=== PATIENT | male | born 1975 | race Caucasian/White ===

== ENCOUNTER → 2020-09-10 12:59 | Outpatient (BNVA) | payer OTHER, SELFPAY | PROVIDERS: PCP Internal Medicine; Visit Provider Internal Medicine | DX: R55 Syncope and collapse (principal); R56.9 Unspecified convulsions | CPT/HCPCS: 99204 ==

== ENCOUNTER 2020-12-04 14:34 | Outpatient (REF) | payer OTHER, SELFPAY | END 2020-12-04 14:35 | disposition home or self-care (01) | LOC: HO.LAB 14:34 | PROVIDERS: Visit Provider Internal Medicine | DX: Z20.822 Contact with and (suspected) exposure to COVID-19 (principal) | CPT/HCPCS: 36415; C9803; U0003 ==

== ENCOUNTER 2021-01-07 08:04 | Inpatient (IN) | payer OTHER, SELFPAY ==
[2021-01-07] VITALS (7 sets, daily range): BP systolic 108–129; BP diastolic 61–87; PULSE 75–101; RESP 16–18; TEMP 36.8–37.1; O2SAT 94–99; BMI 24.3
--- NOTE | ~2021-01-07 | CT_ITS ---
EXAMINATION: CT CERVICAL SPINE WITHOUT CONTRAST CLINICAL INFORMATION: Fall, trauma, pain COMPARISON: CT cervical spine 12/20/2019 TECHNIQUE: Multidetector volumetric CT imaging of the cervical spine is performed without contrast in the axial plane. Additional 2D reformatted coronal and sagittal images are generated on the CT workstation and uploaded to PACS. This CT examination was performed using dose optimization techniques as appropriate, variously including the following: *Automated exposure control *Adjustment of mA and/or kV according to patient size (this includes techniques or standardized protocols for targeted exams where dose is matched to indication/reason for exam; i.e. extremities or head) *Use of iterative reconstruction technique DLP: 399 mGy-cm FINDINGS: There is no vertebral compression fracture, fracture line, spondylolisthesis, or prevertebral soft tissue swelling. The craniocervical junction appears normal. The odontoid appears intact. There is normal cervical lordosis. There are no significant degenerative changes. There is no apical pneumothorax. CT/CT cervical spine wo con IMPRESSION: No acute bony abnormality or prevertebral soft tissue swelling.
--- NOTE | ~2021-01-07 | CT_ITS ---
EXAMINATION: CT HEAD WITHOUT CONTRAST CLINICAL INFORMATION: Fall, trauma, pain. Prior history ruptured anterior communicating artery status post clipping. COMPARISON: CT brain 05/15/2020 TECHNIQUE: Contiguous axial imaging was performed from the skull base to vertex without intravenous administration of contrast. Additional 2-D coronal and sagittal reformatted images are generated on the CT workstation and uploaded to PACS. This CT examination was performed using dose optimization techniques as appropriate, variously including the following: *Automated exposure control *Adjustment of mA and/or kV according to patient size (this includes techniques or standardized protocols for targeted exams where dose is matched to indication/reason for exam; i.e. extremities or head) *Use of iterative reconstruction technique DLP: 744 mGy-cm FINDINGS: There are postsurgical changes with right anterior craniotomy and aneurysm clipping. 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 There is no intracranial hemorrhage or hematoma. The ventricles are normal in size. No intraventricular hemorrhage. There is no hydrocephalus, edema, or mass effect. The marie-white matter differentiation appears symmetric. There is no visible acute territorial infarct or mass lesion. No acute bony abnormality. No orbital emphysema or pneumocephalus. No air-fluid levels in the middle ears, mastoids, or sinuses. CT/CT head/brain wo con IMPRESSION: 1. No acute intracranial abnormality. 2. Postsurgical changes. 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
--- NOTE | ~2021-01-07 | XR_ITS ---
EXAMINATION: XR CHEST CLINICAL INFORMATION: Fall, COMPARISON: Chest radiographs 06/05/2019, 04/29/2017 TECHNIQUE: Portable upright AP view of the chest was obtained. FINDINGS: There is mild coarsening bronchiolar markings lower zones similar to prior studies. No interval hyperinflation, airspace consolidation, or groundglass opacity. No pneumothorax or pleural reaction or effusion. The costophrenic sulci are clear. The heart is normal in size. The vascularity is normal. The visualized bony structures are unremarkable. XR/XR chest 1V IMPRESSION: Unremarkable examination.
--- NOTE | 2021-01-07 08:23 | ECG_ITS ---
Test Reason : SEIZURE Blood Pressure : / mmHG Vent. Rate : 104 BPM Atrial Rate : 104 BPM P-R Int : 134 ms QRS Dur : 084 ms QT Int : 332 ms P-R-T Axes : 065 047 053 degrees QTc Int : 436 ms Sinus tachycardia Otherwise normal ECG When compared with ECG of 20-DEC-2019 11:22, No significant change was found Referred By: Stephanie Calderon Electronically Signed By:CLINTON BREWSTER
--- NOTE | 2021-01-07 08:25 | ED.FALL ---
HPI - Fall General Chief Complaint: Seizure Stated Complaint: DIZZINESS,FOUND ON FLOOR BY FAMILY ? SEIZURE Time Seen by Provider: 01/07/21 08:12 Source: patient and EMS Mode of arrival: EMS Limitations: no limitations History of Present Illness HPI Narrative: 45 yo male with past medical history of cerebral aneurysm s/p clipping in 2007 with subsequent infrequent seizures (5 seizures since) last 08/2020 (seen at [facility] [place] ED and left AMA). Patient tells me he followed up with neurology but unclear whom and where and he was not started on antiepileptics and has not been on any antiepileptics before. He has a history of drinking alcohol (6-7 beers per day) with last drink 48 hrs ago. No additional substance use. He tells me when he does not drink he does get tremulous. He tells me he woke up this morning next to his couch and his friend was over him waking him up. He tells me his friend was there to pick him up for work. He tells me he normally sleeps on his couch and he woke up next to it. He was incontinent with waking. He bit his tongue. He tells me he believe he had a seizure as he has a SHANKAR, feels generally weak, has nausea and feels unwell. Per patient this is how he typically feels post seizure. He has no additional physical complaints. Related Data Home Medications Medication Instructions Recorded Confirmed omeprazole 20 mg PO DAILY PRN 01/07/21 01/07/21 Allergies Allergy/AdvReac Type Severity Reaction Status Date / Time No Known Allergies Allergy Unverified 07/25/20 15:51 [No Known Allergies*] Review of Systems Review of Systems: Yes all other systems are reviewed and are negative Constitutional: Constitutional: Reports no additional constitutional complaints, Denies body ache(s), Denies chills, Denies fever(s), Reports headache(s) and Reports weakness Eyes: Eyes: Reports no additional eye complaints and Denies change in vision ENT: Reports system reviewed and no additional complaints, except as documented, Denies dizziness, Reports headache(s), Denies nasal congestion, Denies nasal discharge and Denies neck pain Cardiovascular: Cardiovascular: Reports no additional cardiovascular complaints, Denies chest pain, Denies leg edema and Denies dyspnea Respiratory: Respiratory: Reports no additional respiratory complaints, Denies cough and Denies dyspnea Gastrointestinal: Gastrointestinal: Reports no additional gastrointestinal complaints, Denies abdominal pain, Denies diarrhea, Reports nausea and Denies vomiting Genitourinary: Genitourinary: Denies urinary incontinence Musculoskeletal: Musculoskeletal: Reports no additional musculoskeletal complaints, Denies back pain, Denies arthralgias, Denies joint swelling, Denies neck pain, Denies numbness and Denies tingling Integumentary/Breasts: Skin/Breast: Reports system reviewed and no additional complaints, except as docu and Denies rash Neurologic: Reports system reviewed and no additional complaints, except as documented, Denies Abnormal speech present, Denies dizziness, Reports headache(s), Denies numbness, Denies tingling and Reports weakness PMFSH Past Medical History Attestation statement: The following information was validated with the patient. Source: old records reviewed and nursing notes reviewed Medical History Seizures Surgical History Aneurysm of anterior communicating artery Family History Family History Father Diabetes Mother No problems noted. Sister No problems noted. Sister No problems noted. Social History Social History Alcohol intake: current Alcohol intake frequency: 3 or more drinks per day Smoking Status: Current some day smoker Use of substances other than those prescribed or required for medical reasons: Yes Substance Use Type Other:: marijuana Substance Use Frequency: Occasionally Last Used Substance: Unknown Any prior treatment program specific to substance use: No Advance Directives: Yes Advance Directives Information Provided: No Advance Directives on File: No Physical Exam Vital Signs: Vital Signs: Last Vital Signs Temp 98.2 F 01/07/21 08:25 Pulse 100 01/07/21 12:46 Resp 16 01/07/21 12:46 BP 129/76 01/07/21 12:46 Pulse Ox 96 01/07/21 12:46 Body Mass Index 24.3 Const: General: cooperative, healthy appearing, comfortable and no acute distress Orientation/consciousness: patient oriented x3 Limitations: no limitations HENMT: Head: Yes normal to inspection Ears: hearing grossly normal bilaterally General nose exam: Normal external nose present Face and sinus: Yes normal facial exam Mouth: Normal oral and palatal mucosa present Throat: Yes posterior oropharynx normal Eyes: General: appearance normal, both eyes and all related structures Pupils: Equal, round and reactive pupils present Neck: Neck: Yes normal visual inspection Chest: Chest palpation & inspection: normal inspection of the chest Resp: Effort & Inspection: normal respiratory effort Auscultation: clear to auscultation bilaterally Cardio: Rate: regular rate Rhythm: regular rhythm Peripheral pulses: Peripheral pulses 2+ throughout GI: Inspection: Yes normal to inspection Palpation (GI): Soft to palpation and nontender Auscultation: normal bowel sounds Back/Spine/Pelvis: Thoracic/Lumbar Spine: thoracic and lumbar spine normal to inspection Skin: General skin exam: no rashes or lesions noted Neuro: General: patient oriented x3, no focal motor deficits and normal sensation to monofilament Cranial nerves: Yes CN's II-XII intact bilaterally, Yes Equal, round and reactive pupils present, Yes Bilaterally intact EOM present, Yes Nystagmus not present, Yes Normal facial strength present and Yes Midline tongue present Cognition (Neuro): normal cognition Speech: No Abnormal speech present Gait exam (Neuro): Normal gait present Motor exam (neuro): 5/5 motor strength present throughout Sensory Exam: Normal double simultaneous stimulation for sensation Deep tendon reflexes (DTR's): Right patellar reflex intensity grade: 2+ and Left patellar reflex intensity grade: 2+ Extrem: Other: Mild tremors to bilateral hands noted General: Yes normal to inspection Course Course Course Narrative: 45 yo male with past medical history of cerebral aneurysm s/p clipping in 2007 with subsequent infrequent seizures, alcohol use here with reports of being found down by a friend. Patient tells me he believed he had a seizure as he was incontinent, feels generally weak, has a SHANKAR and has nausea. he is not currently on antiepileptics. ?alcohol related as patient has a mild tremor with tachycardia and hypertension. Last drink 48 hrs prior. Or underlying seizure disorder with patient's past medical history of aneurysm with clip. Patient is unable to tell me many details about his medical history. Will place on seizures precautions, obtain CT head/neck, EKG, CXR, labs, BRYAN, COVID screen, phenorbarb protocal. 0930-Lactic acid elevated likely from seizures and not from infection, gentle hydration ordered. Low mg, replacement ordered. 1130-Imaging unremarkable. Will discuss with medicine for admit. 1245-Discussed with Marge NEO who accepted admission. MDM - Fall Medical Records Attestation: I reviewed the patient's medical records. Lab Data Attestation: I reviewed the patient's lab results. Result diagrams: 01/07/21 08:39 01/07/21 08:39 Labs: Lab Results 01/07/21 01/07/21 01/07/21 Range/Units 08:39 08:39 08:39 WBC 12.1 H (4.8-10.8) X10*3/uL RBC 4.49 L (4.60-5.80) X10*6/uL Hgb 15.2 (14.0-18.0) g/dl Hct 44.5 (42-52) % MCV 99.1 H (80-98) fL MCH 33.9 H (27.0-33.0) pg MCHC 34.2 (31.0-36.0) g/dl RDW 13.9 (11.0-16.0) % Plt Count 302 (160-400) X10*3/uL MPV 9.1 L (9.4-12.4) fL Immature Gran % (Auto) 0.3 (0.0-0.4) % Neut % (Auto) 88.8 H (45-73) % Lymph % (Auto) 6.7 L (20-40) % [place] % (Auto) 3.4 (2-11) % Eos % (Auto) 0.4 (0-4) % Baso % (Auto) 0.4 (0-2) % Lymph # (Auto) 0.8 L (1.2-4.9) X10*3/uL [place] # (Auto) 0.4 (0.1-1.2) X10*3/uL Eos # (Auto) 0.1 (0.0-0.4) X10*3/uL Baso # (Auto) 0.1 (0.0-0.2) X10*3/uL Abs Immat Gran (auto) 0.04 H (0.00-0.03) X10*3/uL Absolute Neuts (auto) 10.7 H (2.0-8.3) X10*3/uL Absolute Nucleated RBC 0.000 (0.0-0.012) X10*3/uL Nucleated RBC % (auto) 0.0 (0.0-0.2) /100WBC PT 12.6 (10.8-13.0) SEC INR 1.1 (0.9-1.1) Sodium 139 (135-145) mmol/L Potassium 4.4 (3.3-5.1) mmol/L Chloride 98 (96-108) mmol/L Carbon Dioxide 24 (22-29) mmol/L Anion Gap 21 H (12-20) BUN 8 L (9-16) mg/dL Creatinine 1.10 (0.5-1.4) mg/dL Estim Creat Clear Calc 101.3 Estimated GFR > 60 Random Glucose 156 H (60-115) mg/dL Lactic Acid (0.5-2.0) mmol/L Lactic Acid Fup @ 2Hr (0.5-2.0) mmol/L Calcium 9.8 (8.4-10.2) mg/dL Magnesium 1.3 L* (1.6-2.6) mg/dL Total Bilirubin 0.6 (0.0-1.0) mg/dL Direct Bilirubin 0.3 (0.0-0.5) mg/dL AST 62 H (5-37) U/L ALT 34 (0-40) U/L Alkaline Phosphatase 129 H (39-117) U/L Total Creatine Kinase (38-174) U/L Total Protein 8.3 H (6.5-8.0) g/dL Albumin 4.3 (3.5-5.0) g/dL Ethyl Alcohol mg/dL COVID-19 ([facility]) (Negative) COVID-19 Clin Com 01/07/21 01/07/21 01/07/21 Range/Units 08:39 08:39 08:39 WBC (4.8-10.8) X10*3/uL RBC (4.60-5.80) X10*6/uL Hgb (14.0-18.0) g/dl Hct (42-52) % MCV (80-98) fL MCH (27.0-33.0) pg MCHC (31.0-36.0) g/dl RDW (11.0-16.0) % Plt Count (160-400) X10*3/uL MPV (9.4-12.4) fL Immature Gran % (Auto) (0.0-0.4) % Neut % (Auto) (45-73) % Lymph % (Auto) (20-40) % [place] % (Auto) (2-11) % Eos % (Auto) (0-4) % Baso % (Auto) (0-2) % Lymph # (Auto) (1.2-4.9) X10*3/uL [place] # (Auto) (0.1-1.2) X10*3/uL Eos # (Auto) (0.0-0.4) X10*3/uL Baso # (Auto) (0.0-0.2) X10*3/uL Abs Immat Gran (auto) (0.00-0.03) X10*3/uL Absolute Neuts (auto) (2.0-8.3) X10*3/uL Absolute Nucleated RBC (0.0-0.012) X10*3/uL Nucleated RBC % (auto) (0.0-0.2) /100WBC PT (10.8-13.0) SEC INR (0.9-1.1) Sodium (135-145) mmol/L Potassium (3.3-5.1) mmol/L Chloride (96-108) mmol/L Carbon Dioxide (22-29) mmol/L Anion Gap (12-20) BUN (9-16) mg/dL Creatinine (0.5-1.4) mg/dL Estim Creat Clear Calc Estimated GFR Random Glucose (60-115) mg/dL Lactic Acid 4.8 H* (0.5-2.0) mmol/L Lactic Acid Fup @ 2Hr (0.5-2.0) mmol/L Calcium (8.4-10.2) mg/dL Magnesium (1.6-2.6) mg/dL Total Bilirubin (0.0-1.0) mg/dL Direct Bilirubin (0.0-0.5) mg/dL AST (5-37) U/L ALT (0-40) U/L Alkaline Phosphatase (39-117) U/L Total Creatine Kinase 230 H (38-174) U/L Total Protein (6.5-8.0) g/dL Albumin (3.5-5.0) g/dL Ethyl Alcohol < 10 mg/dL COVID-19 ([facility]) (Negative) COVID-19 Clin Com 01/07/21 01/07/21 Range/Units 11:38 13:07 WBC (4.8-10.8) X10*3/uL RBC (4.60-5.80) X10*6/uL Hgb (14.0-18.0) g/dl Hct (42-52) % MCV (80-98) fL MCH (27.0-33.0) pg MCHC (31.0-36.0) g/dl RDW (11.0-16.0) % Plt Count (160-400) X10*3/uL MPV (9.4-12.4) fL Immature Gran % (Auto) (0.0-0.4) % Neut % (Auto) (45-73) % Lymph % (Auto) (20-40) % [place] % (Auto) (2-11) % Eos % (Auto) (0-4) % Baso % (Auto) (0-2) % Lymph # (Auto) (1.2-4.9) X10*3/uL [place] # (Auto) (0.1-1.2) X10*3/uL Eos # (Auto) (0.0-0.4) X10*3/uL Baso # (Auto) (0.0-0.2) X10*3/uL Abs Immat Gran (auto) (0.00-0.03) X10*3/uL Absolute Neuts (auto) (2.0-8.3) X10*3/uL Absolute Nucleated RBC (0.0-0.012) X10*3/uL Nucleated RBC % (auto) (0.0-0.2) /100WBC PT (10.8-13.0) SEC INR (0.9-1.1) Sodium (135-145) mmol/L Potassium (3.3-5.1) mmol/L Chloride (96-108) mmol/L Carbon Dioxide (22-29) mmol/L Anion Gap (12-20) BUN (9-16) mg/dL Creatinine (0.5-1.4) mg/dL Estim Creat Clear Calc Estimated GFR Random Glucose (60-115) mg/dL Lactic Acid (0.5-2.0) mmol/L Lactic Acid Fup @ 2Hr 0.8 (0.5-2.0) mmol/L Calcium (8.4-10.2) mg/dL Magnesium (1.6-2.6) mg/dL Total Bilirubin (0.0-1.0) mg/dL Direct Bilirubin (0.0-0.5) mg/dL AST (5-37) U/L ALT (0-40) U/L Alkaline Phosphatase (39-117) U/L Total Creatine Kinase (38-174) U/L Total Protein (6.5-8.0) g/dL Albumin (3.5-5.0) g/dL Ethyl Alcohol mg/dL COVID-19 ([facility]) Negative (Negative) COVID-19 Clin Com See Note Imaging Data Ct cervical spine: Attestation: I personally reviewed and interpreted this imaging study as follows: Radiologist's impression: COMPARISON: CT cervical spine 12/20/2019 TECHNIQUE: Multidetector volumetric CT imaging of the cervical spine is performed without contrast in the axial plane. Additional 2D reformatted coronal and sagittal images are generated on the CT workstation and uploaded to PACS. This CT examination was performed using dose optimization techniques as appropriate, variously including the following: *Automated exposure control *Adjustment of mA and/or kV according to patient size (this includes techniques or standardized protocols for targeted exams where dose is matched to indication/reason for exam; i.e. extremities or head) *Use of iterative reconstruction technique DLP: 399 mGy-cm FINDINGS: There is no vertebral compression fracture, fracture line, spondylolisthesis, or prevertebral soft tissue swelling. The craniocervical junction appears normal. The odontoid appears intact. There is normal cervical lordosis. There are no significant degenerative changes. There is no apical pneumothorax. CT/CT cervical spine wo con IMPRESSION: No acute bony abnormality or prevertebral soft tissue swelling. CT scan - head: Attestation: I personally reviewed and interpreted this imaging study as follows: Radiologist's impression: EXAMINATION: CT HEAD WITHOUT CONTRAST CLINICAL INFORMATION: Fall, trauma, pain. Prior history ruptured anterior communicating artery status post clipping. COMPARISON: CT brain 05/15/2020 TECHNIQUE: Contiguous axial imaging was performed from the skull base to vertex without intravenous administration of contrast. Additional 2-D coronal and sagittal reformatted images are generated on the CT workstation and uploaded to PACS. This CT examination was performed using dose optimization techniques as appropriate, variously including the following: *Automated exposure control *Adjustment of mA and/or kV according to patient size (this includes techniques or standardized protocols for targeted exams where dose is matched to indication/reason for exam; i.e. extremities or head) *Use of iterative reconstruction technique DLP: 744 mGy-cm FINDINGS: There are postsurgical changes with right anterior craniotomy and aneurysm clipping. 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 There is no intracranial hemorrhage or hematoma. The ventricles are normal in size. No intraventricular hemorrhage. There is no hydrocephalus, edema, or mass effect. The marie-white matter differentiation appears symmetric. There is no visible acute territorial infarct or mass lesion. No acute bony abnormality. No orbital emphysema or pneumocephalus. No air-fluid levels in the middle ears, mastoids, or sinuses. CT/CT head/brain wo con IMPRESSION: 1. No acute intracranial abnormality. 2. Postsurgical changes. 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 Chest x-ray: Attestation: I personally reviewed and interpreted this imaging study as follows: Radiologist's impression: EXAMINATION: XR CHEST CLINICAL INFORMATION: Fall, COMPARISON: Chest radiographs 06/05/2019, 04/29/2017 TECHNIQUE: Portable upright AP view of the chest was obtained. FINDINGS: There is mild coarsening bronchiolar markings lower zones similar to prior studies. No interval hyperinflation, airspace consolidation, or groundglass opacity. No pneumothorax or pleural reaction or effusion. The costophrenic sulci are clear. The heart is normal in size. The vascularity is normal. The visualized bony structures are unremarkable. XR/XR chest 1V IMPRESSION: Unremarkable examination. ECG Data Attestation: I personally reviewed and interpreted this ECG as follows: Interpretation: ST with rate 104, normal pr, normal qrs, normal qtc Discharge Plan Discharge Clinical Impression: Seizure, Alcohol use Patient Disposition: Admitted As Inpatient
[2021-01-07 08:47] LABS: Basophils Absolute Auto 0.1 X10*3/uL (0.0-0.2); Basophils Percent Auto 0.4 % (0-2); Eosinophils Absolute Auto 0.1 X10*3/uL (0.0-0.4); Eosinophils Percent Auto 0.4 % (0-4); Hematocrit 44.5 % (42-52); Hemoglobin 15.2 g/dl (14.0-18.0); Imm Gran Abs Auto 0.04 X10*3/uL (0.00-0.03); Imm Gran Pct Auto 0.3 % (0.0-0.4); Lymphocytes Absolute Auto 0.8 X10*3/uL (1.2-4.9); Lymphocytes Percent Auto 6.7 % (20-40); MANUAL DIFF FLAG NO; Mean Corpuscular HGB Conc 34.2 g/dl (31.0-36.0); Mean Corpuscular Hemoglobin 33.9 pg (27.0-33.0); Mean Corpuscular Volume 99.1 fL (80-98); Mean Platelet Volume 9.1 fL (9.4-12.4); Monocytes Absolute Auto 0.4 X10*3/uL (0.1-1.2); Monocytes Percent Auto 3.4 % (2-11); Neutrophils Absolute Auto 10.7 X10*3/uL (2.0-8.3); Neutrophils Percent Auto 88.8 % (45-73); Platelet Count 302 X10*3/uL (160-400); Red Blood Count 4.49 X10*6/uL (4.60-5.80); Red Cell Distribution Width 13.9 % (11.0-16.0); White Blood Count 12.1 X10*3/uL (4.8-10.8)
[2021-01-07 08:57] LABS: INTERNATIONAL NORM RATIO 1.1 (0.9-1.1); Prothrombin Time 12.6 SEC (10.8-13.0)
[2021-01-07 09:08] LABS: Ethanol < 10 mg/dL
[2021-01-07 09:18] LABS: Alanine Aminotransferase 34 U/L (0-40); Albumin Level 4.3 g/dL (3.5-5.0); Alkaline Phosphatase 129 U/L (39-117); Anion Gap 21 (12-20); Aspartate Amino Transferase 62 U/L (5-37); Bilirubin Direct 0.3 mg/dL (0.0-0.5); Bilirubin Total 0.6 mg/dL (0.0-1.0); Blood Urea Nitrogen 8 mg/dL (9-16); Calcium 9.8 mg/dL (8.4-10.2); Carbon Dioxide 24 mmol/L (22-29); Chloride 98 mmol/L (96-108); Creatinine Clr Calc Pharmacy 101.3; Estimated Glomerular Filt Rate > 60; Glucose Random 156 mg/dL (60-115); Magnesium 1.3 mg/dL (1.6-2.6); Potassium 4.4 mmol/L (3.3-5.1); Sodium 139 mmol/L (135-145); Total Protein 8.3 g/dL (6.5-8.0)
[2021-01-07 09:19] LABS: Lactic Acid 4.8 mmol/L (0.5-2.0)
[2021-01-07] MEDS: 0.9 % Sodium Chloride 1,000 ML 999 ML IV (10:00)
[2021-01-07] MEDS: Magnesium Sulfate/H2O 2 GM/50 ML PIGGYBACK IV (10:00)
[2021-01-07] MEDS: Nicotine 21 MG PATCH.TD24 TRANSDERMA (10:06)
[2021-01-07 10:44] LABS: Reflex Lactate? Lactic Acid Added
[2021-01-07 12:10] LABS: ~Lactic Acid-LAB USE ONLY 0.8 mmol/L (0.5-2.0)
[2021-01-07] MEDS: PHENobarbitaL sodium 130 MG/ML VIAL 203 MG IM (12:34)
--- NOTE | 2021-01-07 12:53 | PC.NURSE ---
pt informed that we are waiting for urine sample and to ring call sims for urine sample cup
[2021-01-07] MEDS: ondansetron HCL 4 MG/2 ML VIAL IVPUSH (13:16)
[2021-01-07 13:51] LABS: COVID-19 Test Negative (Negative); IDNOW Serial# 9DD0AD1C
--- NOTE | 2021-01-07 15:22 | PM.IMHP ---
History of Present Illness Date of Service: 01/07/21 <Marge Lucas NP - Last Filed: 01/08/21 11:21> Chief Complaint: Seizure <Marge Lucas NP - Last Filed: 01/08/21 11:21> 45 year old man presenting after a seizure. Apparently, he woke up next to his couch and his friend was attempting to wake him up. Apparently he was incontinent of bowel and bladder when he stood up. He bit his tongue. He had a headache and felt generally weak with some nausea. He has a history of cerebral aneurysm clipping in 2007. He has had 3-4 seizures in the past after having aneurysmal clipping. He also drink alcohol heavily and had his last drink on Wednesday or Wednesday. He noted that he was in the rehab from 11/2020-12/2020. He denied chest pain, shortness of breath, nausea, vomiting. Vital signs are stable, mild leukocytosis, INR 1.1, magnesium 1.3, lactic acid 4.8 with repeat of 0.8. Head CT, chest x-ray and cervical spine CT all negative for any acute abnormalities. He was started on phenobarbital protocol, given IV magnesium, IV fluids, nicotine patch, Zofran. He be admitted for further management and treatment of acute seizure. <Marge Lucas NP - Last Filed: 01/08/21 11:21> Review of Systems Review of Systems: Denies any recent fever chills or decrease in appetite respiratory denies any shortness of breath coverage production cardiovascular is adjustment of any PND or edema gastrointestinal denies any dysphagia abdominal pain nausea vomiting or diarrhea genitourinary denies any dysuria frequency or hematuria musculoskeletal denies any joint pain or swelling neuropsych denies any weakness or seizures all other systems reviewed are negative <Marge Lucas NP - Last Filed: 01/08/21 11:21> [facility] Medical History: Medical History Seizures <Marge Lucas NP - Last Filed: 01/08/21 11:21> Family History: Family History Father Diabetes Mother No problems noted. Sister No problems noted. Sister No problems noted. <Marge Lucas NP - Last Filed: 01/08/21 11:21> Surgical History: Surgical History Aneurysm of anterior communicating artery <Marge Lucas NP - Last Filed: 01/08/21 11:21> Social History: Social History Household Members: None Housing: House Do you presently have visiting nurse or other home services: No Alcohol intake: current Alcohol intake frequency: 3 or more drinks per day Smoking Status: Current some day smoker Tobacco Type: Cigarette Smoked in Last 30 Days: Yes Patient Interested in Nicotine Replacement: No Patient Given Instructions on How to Stop Smoking: No Second Hand Smoke Exposure: No Use of substances other than those prescribed or required for medical reasons: No Substance Use Type: Marijuana Substance Use Type Other:: marijuana Substance Use Frequency: Socially Last Used Substance: Unknown Currently Displaying Signs/Symptoms of Drug Intoxication Withdrawal: No Any prior treatment program specific to substance use: No Have you been hit, kicked, punched, or otherwise hurt by someone within the past year? If so, by whom?: No Do you feel safe in your current relationship?: No Is there a partner from a previous relationship who is making you feel unsafe now?: No Are you made to feel afraid or neglected: No Holiness Healthcare Practices: Faith Advance Directives: No Advance Directives Information Provided: No Advance Directives on File: No Do you have thoughts of harming others: None Do you have a plan to hurt others: No Plan Recently lost weight without trying: No service: No Current occupational status: employed <Marge Lucas NP - Last Filed: 01/08/21 11:21> Meds Allergies/Adverse reactions: Allergies Allergy/AdvReac Type Severity Reaction Status Date / Time No Known Allergies Allergy Unverified 07/25/20 15:51 [No Known Allergies*] <Marge Lucas NP - Last Filed: 01/08/21 11:21> Active Medications: Current Medications Generic Name Dose Route Start Last Admin Trade Name Freq PRN Reason Stop Dose Admin Medication 1 each 01/08/21 09:00 No Benzodiazepines MISCELLANE DAILY [facility] Pharmacy Consult 1 each 01/07/21 11:44 Consult Rx Perform Med Rec MISCELLANE ONCE PRN Consult order Phenobarbital 60 mg 01/08/21 09:00 Phenobarbital 30 Mg Tablet PO 01/09/21 21:01 BID [facility] Phenobarbital 30 mg 01/10/21 09:00 Phenobarbital 30 Mg Tablet PO 01/11/21 21:01 BID [facility] Phenobarbital 30 mg 01/12/21 09:00 Phenobarbital 30 Mg Tablet PO 01/13/21 09:01 DAILY [facility] Phenobarbital Sodium 152 mg 01/07/21 16:00 Phenobarbital Sodium 130 Mg/Ml Vial IM 01/07/21 19:01 1600,1900 MARY JANE <Marge Lucas NP - Last Filed: 01/08/21 11:21> Home medications: Home Medications Medication Instructions Recorded Confirmed Last Taken Type omeprazole 20 mg PO DAILY PRN 01/07/21 01/07/21 Unknown History <Marge Lucas NP - Last Filed: 01/08/21 11:21> Physical Exam Vital Signs and Narrative: Vital Signs: Last Vital Signs Temp 98.2 F 01/07/21 08:25 Pulse 100 01/07/21 12:46 Resp 16 01/07/21 12:46 BP 129/76 01/07/21 12:46 Pulse Ox 96 01/07/21 12:46 Body Mass Index 24.3 <Marge Lucas NP - Last Filed: 01/08/21 11:21> Results Labs CBC and Chem 7: : 01/08/21 04:38 01/08/21 04:38 <Marge Lucas NP - Last Filed: 01/08/21 11:21> Labs: Laboratory Results - last 24 hr 01/07/21 01/07/21 01/07/21 08:39 08:39 08:39 MCV 99.1 H MCH 33.9 H MCHC 34.2 RDW 13.9 Plt Count 302 MPV 9.1 L Immature Gran % (Auto) 0.3 Neut % (Auto) 88.8 H Lymph % (Auto) 6.7 L [place] % (Auto) 3.4 Eos % (Auto) 0.4 Baso % (Auto) 0.4 Lymph # (Auto) 0.8 L [place] # (Auto) 0.4 Eos # (Auto) 0.1 Baso # (Auto) 0.1 Abs Immat Gran (auto) 0.04 H Absolute Neuts (auto) 10.7 H Absolute Nucleated RBC 0.000 Nucleated RBC % (auto) 0.0 PT 12.6 INR 1.1 Anion Gap 21 H Estim Creat Clear Calc 101.3 Estimated GFR > 60 Random Glucose 156 H Lactic Acid Lactic Acid Fup @ 2Hr Calcium 9.8 Magnesium 1.3 L* Total Bilirubin 0.6 Direct Bilirubin 0.3 AST 62 H ALT 34 Alkaline Phosphatase 129 H Total Creatine Kinase Total Protein 8.3 H Albumin 4.3 Ethyl Alcohol COVID-19 (MARY) COVID-19 Lexy Com 01/07/21 01/07/21 01/07/21 08:39 08:39 08:39 MCV MCH MCHC RDW Plt Count MPV Immature Gran % (Auto) Neut % (Auto) Lymph % (Auto) [place] % (Auto) Eos % (Auto) Baso % (Auto) Lymph # (Auto) [place] # (Auto) Eos # (Auto) Baso # (Auto) Abs Immat Gran (auto) Absolute Neuts (auto) Absolute Nucleated RBC Nucleated RBC % (auto) PT INR Anion Gap Estim Creat Clear Calc Estimated GFR Random Glucose Lactic Acid 4.8 H* Lactic Acid Fup @ 2Hr Calcium Magnesium Total Bilirubin Direct Bilirubin AST ALT Alkaline Phosphatase Total Creatine Kinase 230 H Total Protein Albumin Ethyl Alcohol < 10 COVID-19 (MARY) COVID-LogMeIn 01/07/21 01/07/21 11:38 13:07 MCV MCH MCHC RDW Plt Count MPV Immature Gran % (Auto) Neut % (Auto) Lymph % (Auto) [place] % (Auto) Eos % (Auto) Baso % (Auto) Lymph # (Auto) [place] # (Auto) Eos # (Auto) Baso # (Auto) Abs Immat Gran (auto) Absolute Neuts (auto) Absolute Nucleated RBC Nucleated RBC % (auto) PT INR Anion Gap Estim Creat Clear Calc Estimated GFR Random Glucose Lactic Acid Lactic Acid Fup @ 2Hr 0.8 Calcium Magnesium Total Bilirubin Direct Bilirubin AST ALT Alkaline Phosphatase Total Creatine Kinase Total Protein Albumin Ethyl Alcohol COVID-19 (MARY) Negative COVID-19 Lexy Com See Note <Marge Lucas BRAKESHOE REPAIRER - Last Filed: 01/08/21 11:21> Imaging Radiologist's Impressions: Impressions Cervical Spine CT 01/07/21 08:23 IMPRESSION: No acute bony abnormality or prevertebral soft tissue swelling. Chest X-Ray 01/07/21 08:23 IMPRESSION: Unremarkable examination. Head CT 01/07/21 08:23 IMPRESSION: 1. No acute intracranial abnormality. 2. Postsurgical changes. 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 <Marge Lucas NP - Last Filed: 01/08/21 11:21> Assessment and Plan (1) Seizure: Status: Acute <Marge Lucas NP - Last Filed: 01/08/21 11:21> (2) Alcohol use: Status: Acute <Marge Lucas NP - Last Filed: 01/08/21 11:21> 45-year-old man admitted after acute seizure. Acute seizure. Patient reports history of total for seizures in the past. Reports seizures started after he had aneurysmal clipping. He also has a history of heavy alcohol abuse with last drink approximately 3 days ago. He has had EEGs in the past that were unremarkable. Will admit to [facility], neurology to follow, seizure precautions, not on any antiepileptics at this time. Hypomagnesemia. Related to alcohol abuse. Repleted in the ER. Lactic acidosis. Likely secondary to seizure. Will trend. Alcohol abuse. Phenobarbital protocol, discussed the importance of alcohol cessation safely. History of atrial fibrillation. Patient reported he had been on a beta-erica approximately 1 years ago but he ran out of medication and he never followed up to be restarted, as far as he can remember he had never been on any anticoagulation. He is likely not on anticoagulation due to his his alcohol use. Smoker. Nicotine replacement. Discussed the importance of smoking cessation. DVT prophylaxis with Lovenox Discussed with Dr. Rodriguez Full code <Marge Lucas NP - Last Filed: 01/08/21 11:21>
[2021-01-07] MEDS: 0.9 % Sodium Chloride Flush 3 ML SYRINGE IVFLUSH ×2 (16:39→23:47)
[2021-01-07] MEDS: PHENobarbitaL sodium 130 MG/ML VIAL 152 MG IM ×2 (16:40→18:35)
[2021-01-07] MEDS: Enoxaparin Sodium 40 MG/0.4 ML SYRINGE SUBCUT (18:33)
[2021-01-08 03:57] VITALS: BP 99/65; PULSE 79; RESP 16; TEMP 36.6; O2SAT 99
[2021-01-08 04:58] LABS: MANUAL DIFF FLAG NO
[2021-01-08 05:04] LABS: Basophils Percent Auto 0.7 % (0-2); Eosinophils Absolute Auto 0.2 X10*3/uL (0.0-0.4); Eosinophils Percent Auto 2.9 % (0-4); Hematocrit 41.3 % (42-52); Imm Gran Abs Auto 0.02 X10*3/uL (0.00-0.03); Imm Gran Pct Auto 0.3 % (0.0-0.4); Lymphocytes Absolute Auto 1.6 X10*3/uL (1.2-4.9); Lymphocytes Percent Auto 27.6 % (20-40); Mean Corpuscular HGB Conc 33.9 g/dl (31.0-36.0); Mean Corpuscular Hemoglobin 33.5 pg (27.0-33.0); Mean Corpuscular Volume 98.8 fL (80-98); Mean Platelet Volume 9.6 fL (9.4-12.4); Monocytes Absolute Auto 0.5 X10*3/uL (0.1-1.2); Monocytes Percent Auto 8.1 % (2-11); Neutrophils Absolute Auto 3.6 X10*3/uL (2.0-8.3); Neutrophils Percent Auto 60.4 % (45-73); Platelet Count 242 X10*3/uL (160-400); Red Blood Count 4.18 X10*6/uL (4.60-5.80); Red Cell Distribution Width 13.5 % (11.0-16.0); White Blood Count 5.9 X10*3/uL (4.8-10.8)
[2021-01-08 05:43] LABS: Anion Gap 12 (12-20); Blood Urea Nitrogen 8 mg/dL (9-16); Calcium 8.3 mg/dL (8.4-10.2); Carbon Dioxide 29 mmol/L (22-29); Chloride 99 mmol/L (96-108); Creatinine Clr Calc Pharmacy 122.5; Estimated Glomerular Filt Rate > 60; Glucose Random 78 mg/dL (60-115); Magnesium 1.9 mg/dL (1.6-2.6); Potassium 3.8 mmol/L (3.3-5.1); Sodium 136 mmol/L (135-145)
[2021-01-08] MEDS: 0.9 % Sodium Chloride Flush 3 ML SYRINGE IVFLUSH (07:08)
[2021-01-08 07:39] VITALS: BP 109/70; PULSE 66; RESP 17; TEMP 36.4; O2SAT 96
[2021-01-08] MEDS: PHENobarbitaL 30 MG TABLET 60 MG PO (08:29)
[2021-01-08] MEDS: Nicotine 14 MG PATCH.TD24 TRANSDERMA (09:37)
--- NOTE | 2021-01-08 09:51 | MHC.CM.PN ---
pt lives alone in apt. he reports that he is independent in his care. he works a job but does not drive a car. pt will have a friend provide transport at dc. pt denies the need for vna at dc. dc plan is home no svcs. cm to cont. to follow.
[2021-01-08 11:21] VITALS: BP 103/68; PULSE 73; RESP 15; TEMP 36.4; O2SAT 97
--- NOTE | 2021-01-08 11:30 | P.CNNE_ITS ---
History of Present Illness Data of Consult Service Date: 01/08/21 Primary Care Provider: Kenneth Hurt MD 45 years old man with remote history of probably right A-comm aneurysm rupture, requiring, associated with right frontal encephalomalacia and subsequent seizure disorder. He was recently seen by Dr. Dykes in our office and was asked to have an EEG and brain scan but did not follow up with appointments. He said that his 1st seizure was many years ago and during last many years he had about 5. He was brought after another event. He remember feeling nauseous and then lo st consciousness. Apparently he became unresponsive, shook, bit his tongue, and passed his bowel and urine. He did not have recollection of this event. Review of Systems Review of Systems: No recent cold or flu-like illness. He denied use of drugs or alcohol. [facility] Past Medical History Medical History Seizures Family History Family History Father Diabetes Mother No problems noted. Sister No problems noted. Sister No problems noted. Surgical History Surgical History Aneurysm of anterior communicating artery Social History Social History Household Members: None Housing: House Do you presently have visiting nurse or other home services: No Alcohol intake: current Alcohol intake frequency: 3 or more drinks per day Smoking Status: Current some day smoker Tobacco Type: Cigarette Smoked in Last 30 Days: Yes Patient Interested in Nicotine Replacement: No Patient Given Instructions on How to Stop Smoking: No Second Hand Smoke Exposure: No Use of substances other than those prescribed or required for medical reasons: No Substance Use Type: Marijuana Substance Use Type Other:: marijuana Substance Use Frequency: Socially Last Used Substance: Unknown Currently Displaying Signs/Symptoms of Drug Intoxication Withdrawal: No Any prior treatment program specific to substance use: No Have you been hit, kicked, punched, or otherwise hurt by someone within the past year? If so, by whom?: No Do you feel safe in your current relationship?: No Is there a partner from a previous relationship who is making you feel unsafe now?: No Are you made to feel afraid or neglected: No Yazidi Healthcare Practices: Orthodox Advance Directives: No Advance Directives Information Provided: No Advance Directives on File: No Do you have thoughts of harming others: None Do you have a plan to hurt others: No Plan Recently lost weight without trying: No service: No Current occupational status: employed Meds Allergies Allergy/AdvReac Type Severity Reaction Status Date / Time No Known Allergies Allergy Unverified 07/25/20 15:51 [No Known Allergies*] Active Medications: Current Medications Generic Name Dose Route Start Last Admin Trade Name Freq PRN Reason Stop Dose Admin Acetaminophen 650 mg 01/07/21 15:22 Acetaminophen 325 Mg Tablet PO Q6H PRN Pain, Mild (Pain Scale 1-3) Enoxaparin Sodium 40 mg 01/07/21 18:00 01/07/21 18:33 Enoxaparin Sodium 40 Mg/0.4 Ml Syringe SUBCUT 40 mg Q24H MARY JANE Administration Medication 1 each 01/08/21 09:00 No Benzodiazepines MISCELLANE DAILY MARY JANE Nicotine 14 mg 01/08/21 09:00 01/08/21 09:37 Nicotine 14 Mg Patch.Td24 TRANSDERMA 14 mg DAILY MARY JANE Administration Omeprazole 20 mg 01/07/21 15:22 Omeprazole 20 Mg Capsule.Dr PO DAILY PRN Acid Reflux Ondansetron HCl 4 mg 01/07/21 15:22 Ondansetron Hcl 4 Mg/2 Ml Vial IVPUSH Q8H PRN Nausea and Vomiting Pharmacy Consult 1 each 01/07/21 11:44 Consult Rx Perform Med Rec MISCELLANE ONCE PRN Consult order Phenobarbital 60 mg 01/08/21 09:00 01/08/21 08:29 Phenobarbital 30 Mg Tablet PO 01/09/21 21:01 60 mg BID MARY JANE Administration Phenobarbital 30 mg 01/10/21 09:00 Phenobarbital 30 Mg Tablet PO 01/11/21 21:01 BID MARY JANE Phenobarbital 30 mg 01/12/21 09:00 Phenobarbital 30 Mg Tablet PO 01/13/21 09:01 DAILY MARY JANE Sodium Chloride 3 ml 01/07/21 16:00 01/08/21 07:08 0.9 % Sodium Chloride Flush 3 Ml Syringe IVFLUSH 3 ml QSHIFT MARY JANE Administration Home Medications Medication Instructions Recorded Confirmed Last Taken Type omeprazole 20 mg PO DAILY PRN 01/07/21 01/07/21 Unknown History Physical Exam Vital Signs: Vital Signs: Last Vital Signs Temp 97.5 F 01/08/21 11:21 Pulse 73 01/08/21 11:21 Resp 15 01/08/21 11:21 BP 103/68 01/08/21 11:21 Pulse Ox 97 01/08/21 11:21 Body Mass Index 24.3 He was alert and awake with normal spontaneity of speech fluency comprehension and affect. Pupils were equal and reactive to light and extraocular muscles were intact. Visual peterson were full to confrontation. Face was symmetrical. There was no pronator drift. Deep tendon reflexes were trace to 1+ with flexor plantars. Results Labs CBC & Chem 7: 01/08/21 04:38 01/08/21 04:38 Labs: Short CBC 01/08/21 Range/Units 04:38 WBC 5.9 (4.8-10.8) X10*3/uL Hgb 14.0 (14.0-18.0) g/dl Hct 41.3 L (42-52) % Plt Count 242 (160-400) X10*3/uL BMP 01/08/21 04:38 Sodium 136 Potassium 3.8 Chloride 99 Carbon Dioxide 29 BUN 8 L Creatinine 0.91 Calcium 8.3 L D His noncontrast head CT revealed a large area of encephalomalacia involving right frontal lobe in probably a common area aneurysm clip. Assessment and Plan (1) Seizure: Status: Acute 45 years old man with remote history of probably A-comm aneurysm clipping, associated large right frontal encephalomalacia, and secondarily generalized seizure disorder. He was not taking any antiepileptic and it was strongly recommended that he should take it and continue taking at rest of his life. At this time I recommend levetiracetam 500 mg twice a day. He should not drive and avoid activities that could put his life in danger such as swimming alone or sitting in a soaking tub alone. He should also avoid alcohol and all drug abuse . His follow-up should be with Dr. Dykes. Procedures Date of Service Date of Service: 01/08/21
[2021-01-08] MEDS: levETIRAcetam 500 MG TABLET PO (12:47)
[2021-01-08] MEDS: Omeprazole 20 MG CAPSULE.DR PO (12:47)
--- NOTE | 2021-01-08 14:01 | MHC.RECOVRN ---
45 year old male presented to [facility] on 01/07/21 via ambulance due to?being found on floor by family this am, pt was slightly confused, states he felt like he previously had when he has seizures. ?currently alert and oriented per ED streetcar repairer helper. Pt subsequently admitted for seizures and alcohol withdrawal. T/w met with pt in to discuss substance use. Pt reports drinking alcohol, 1/4 pint or a 6 pack twice per week, because I'm hiding it. Pt reports last drink on Wednesday, 2 glasses of wine. Age of first use: 14. Pt began explaining to t/w that he had a brain aneurysm 13 years ago and has since had 5 or 6 seizures. Prior to arriving at [facility], pt describes feeling sweaty. headache, nausea. Pt states I don't think it was a seizure, I think it was some form of withdrawal. ? Pt reports attending AUD treatment in [place] from Nov-Dec 2020 due to alcohol use being too much. Pt denies other treatment. Pts longest period of recover, other than Nov-Dec, was 2 weeks, however, pt states it was never intentional, it just happened. Pt was provided with resources and education regarding AUD treatment. Pt is interested in medication, particularly naltrexone. Pt states my eventual goal is to not drink, but on my terms. ? Case was discussed with pts RN as well as referred to Jennie Blackmon APRN, for addiction medication consult.?
--- NOTE | 2021-01-08 14:17 | P.DS_ITS ---
DS: Providers Provider Date of Service: 01/09/21 Date of admission: 01/07/21 15:22 Primary care physician: Kenneth uHrt MD Consults: 01/07/21 15:22 Consult to Neurology Routine Consulting Provider: [facility] Reason for consultation: seizure Has provider been notified: No 01/08/21 09:20 Consult to Care Team Routine Comment: Reason for consultation: hx cerebral aneursym clipping then seizures with etoh qd drinks 3or more qd DS: Diagnosis Discharge Diagnosis (1) Seizure: Status: Acute (2) Alcohol use disorder: Status: Acute DS: Medications Discharge Medications Home Medications: Home Medications Medication Instructions Recorded Confirmed omeprazole 20 mg PO DAILY PRN 01/07/21 01/07/21 Previous Rx's Medication Instructions Recorded levetiracetam 500 mg PO BID #60 tab 01/08/21 DS: Summary Hospital Course Hospital Course: 45-year-old male admitted with seizure and alcohol withdrawl , patient has known history of aneurysm clipping, CT shows large right-sided frontal encephalomalacia, seizure was thoughts likely secondary to encephalomalacia and possibly alcohol abuse, patient was started on phenobarbital and supportive management, neurology was consulted recommended seizure likely secondary to encephalomalacia and recommended starting levetiracetam 500 mg twice a day. Patient was stable patient was discharged home on p.o. Keppra 500 mg twice a day Patient was advised He should not drive and avoid activities that could put his life in danger such as swimming alone or sitting in a soaking tub alone. He should also avoid alcohol and all drug abuse. Patient will follow-up with Dr. Dykes. Time Spent with Patient Time attestation: Total time spent providing and/or coordinating discharge services: Discharge coordination time: Greater than 30 minutes Physical Exam Vital Signs: Vital Signs: Last Vital Signs Temp 97.5 F 01/08/21 11:21 Pulse 73 01/08/21 11:21 Resp 15 01/08/21 11:21 BP 103/68 01/08/21 11:21 Pulse Ox 97 01/08/21 11:21 Body Mass Index 24.3 DS: Data Data Completed and Pending Labs on day of discharge: Laboratory Results - last 24 hr 01/08/21 01/08/21 04:38 04:38 WBC 5.9 RBC 4.18 L Hgb 14.0 Hct 41.3 L MCV 98.8 H MCH 33.5 H MCHC 33.9 RDW 13.5 Plt Count 242 MPV 9.6 Immature Gran % (Auto) 0.3 Neut % (Auto) 60.4 Lymph % (Auto) 27.6 [place] % (Auto) 8.1 Eos % (Auto) 2.9 Baso % (Auto) 0.7 Lymph # (Auto) 1.6 [place] # (Auto) 0.5 Eos # (Auto) 0.2 Baso # (Auto) 0.0 Abs Immat Gran (auto) 0.02 Absolute Neuts (auto) 3.6 Absolute Nucleated RBC 0.000 Nucleated RBC % (auto) 0.0 Sodium 136 Potassium 3.8 Chloride 99 Carbon Dioxide 29 Anion Gap 12 BUN 8 L Creatinine 0.91 Estim Creat Clear Calc 122.5 Estimated GFR > 60 Random Glucose 78 D Calcium 8.3 L D Magnesium 1.9 Discharge Plan Discharge Anticipated Discharge Date/Time: 01/08/21 14:12 Patient Disposition: Home, Self-Care Referrals: [facility] [Other] Kenneth Hurt MD [Primary Care Provider] - Discharge Medications: New levetiracetam 500 mg Tablet 500 mg PO BID Qty: 60 RF: 0 naltrexone 50 mg tablet 50 mg PO DAILY Qty: 30 RF: 0 Continued omeprazole 20 mg Capsule,Delayed Release(Dr/Ec) 20 mg PO DAILY PRN (Reason: Acid Reflux) RF: 0 Discharge Orders: Discharge Order (Routine); Ordered 01/08/21 Ordered By: Freddy Rodriguez Activity on Discharge: As tolerated Stand Alone Forms: Patient Portal Discharge page, Work/School Release Care Plan Goals: prevent seizure Health Concerns: alcohoil abuse seizure Plan of Treatment: see above Discharge Date/Time: 01/08/21 14:42
--- NOTE | 2021-01-08 15:12 | MHC.CM.PN ---
NURSE LOADING CHECKER NOTE MET WITH PATIENT AND HE EXPRESSED A INTEREST IN STOPPING HIS ETOH INTAKE SECONDARY TO RECURRENT SEIZURE INIATED REFERRAL TO THE CARES TEAM ALISON SAENZ RECOVERY NURSE SHE MET WITH HIM AND REFERRED TO BHANU LOZA WHOM ALSO MET WITH PATIENT FOR ETOH MEDICATION MANAGEMENT , HE WILL BE STARTED ON NALTREXONE AND HAVE FOLW UP WITH THE COMPREHENSIVE CARE TEAM LUIS INSTRUCTED PATIENT TO CALL TOMORROW FR APPINTMENT
--- NOTE | 2021-01-08 16:39 | HO.ADDICTCON ---
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 Currently medically admitted after possible seizure at home, unclear if it was related to ETOH withdrawal. Seen by Recovery Support RN, please see note for full substance use history. Patient expressing interest in MAT to address AUD. Patient had already reviewed options with RN and questions answered during visit with this bond underwriter. Patient appears to be in contemplation stage related to changing behaviors associated with alcohol use. At this time abstinence is not his goal, however he would like to feel more in control of his alcohol use. Discussed Naltrexone, side effects, goals of treatment and dosing times. Also discussed benefits of psychosocial supports, in particular when working towards building coping skills. Past Psychiatric History: Denies Medical Evaluation Reviewed: Yes Personal & Social History: Denies any family history of addiction Review of Systems Review of Systems Yes all other systems are reviewed and are negative Diagnostics Vital Signs (24Hr): Vital Signs - 24 hr 01/07/21 17:21 01/07/21 19:12 01/07/21 23:12 Temperature 98.8 F 98.2 F 98.6 F Pulse Rate 85 75 80 Respiratory Rate 18 18 18 Blood Pressure 114/72 108/61 120/87 Pulse Oximetry 94 97 99 01/07/21 23:38 01/08/21 03:57 01/08/21 07:39 Temperature 97.8 F 97.6 F Pulse Rate 79 66 Respiratory Rate 18 16 17 Blood Pressure 99/65 109/70 Pulse Oximetry 99 96 01/08/21 11:21 Temperature 97.5 F Pulse Rate 73 Respiratory Rate 15 Blood Pressure 103/68 Pulse Oximetry 97 Body Mass Index 24.3 Labs Results: 01/08/21 04:38 01/08/21 04:38 Labs: Laboratory Results - last 48 hr 01/07/21 01/07/21 01/07/21 08:39 08:39 08:39 WBC 12.1 H RBC 4.49 L Hgb 15.2 Hct 44.5 MCV 99.1 H MCH 33.9 H MCHC 34.2 RDW 13.9 Plt Count 302 MPV 9.1 L Immature Gran % (Auto) 0.3 Neut % (Auto) 88.8 H Lymph % (Auto) 6.7 L [place] % (Auto) 3.4 Eos % (Auto) 0.4 Baso % (Auto) 0.4 Lymph # (Auto) 0.8 L [place] # (Auto) 0.4 Eos # (Auto) 0.1 Baso # (Auto) 0.1 Abs Immat Gran (auto) 0.04 H Absolute Neuts (auto) 10.7 H Absolute Nucleated RBC 0.000 Nucleated RBC % (auto) 0.0 PT 12.6 INR 1.1 Sodium 139 Potassium 4.4 Chloride 98 Carbon Dioxide 24 Anion Gap 21 H BUN 8 L Creatinine 1.10 Estim Creat Clear Calc 101.3 Estimated GFR > 60 Random Glucose 156 H Lactic Acid Lactic Acid Fup @ 2Hr Calcium 9.8 Magnesium 1.3 L* Total Bilirubin 0.6 Direct Bilirubin 0.3 AST 62 H ALT 34 Alkaline Phosphatase 129 H Total Creatine Kinase Total Protein 8.3 H Albumin 4.3 Ethyl Alcohol COVID-19 (MARY) COVIDBubbl 01/07/21 01/07/21 01/07/21 08:39 08:39 08:39 WBC RBC Hgb Hct MCV MCH MCHC RDW Plt Count MPV Immature Gran % (Auto) Neut % (Auto) Lymph % (Auto) [place] % (Auto) Eos % (Auto) Baso % (Auto) Lymph # (Auto) [place] # (Auto) Eos # (Auto) Baso # (Auto) Abs Immat Gran (auto) Absolute Neuts (auto) Absolute Nucleated RBC Nucleated RBC % (auto) PT INR Sodium Potassium Chloride Carbon Dioxide Anion Gap BUN Creatinine Estim Creat Clear Calc Estimated GFR Random Glucose Lactic Acid 4.8 H* Lactic Acid Fup @ 2Hr Calcium Magnesium Total Bilirubin Direct Bilirubin AST ALT Alkaline Phosphatase Total Creatine Kinase 230 H Total Protein Albumin Ethyl Alcohol < 10 COVID-19 (MARY) COVIDBubbl 01/07/21 01/07/21 01/08/21 11:38 13:07 04:38 WBC RBC Hgb Hct MCV MCH MCHC RDW Plt Count MPV Immature Gran % (Auto) Neut % (Auto) Lymph % (Auto) [place] % (Auto) Eos % (Auto) Baso % (Auto) Lymph # (Auto) [place] # (Auto) Eos # (Auto) Baso # (Auto) Abs Immat Gran (auto) Absolute Neuts (auto) Absolute Nucleated RBC Nucleated RBC % (auto) PT INR Sodium 136 Potassium 3.8 Chloride 99 Carbon Dioxide 29 Anion Gap 12 BUN 8 L Creatinine 0.91 Estim Creat Clear Calc 122.5 Estimated GFR > 60 Random Glucose 78 D Lactic Acid Lactic Acid Fup @ 2Hr 0.8 Calcium 8.3 L D Magnesium 1.9 Total Bilirubin Direct Bilirubin AST ALT Alkaline Phosphatase Total Creatine Kinase Total Protein Albumin Ethyl Alcohol COVID-19 (MARY) Negative COVID-19 Clin Com See Note 01/08/21 04:38 WBC 5.9 RBC 4.18 L Hgb 14.0 Hct 41.3 L MCV 98.8 H MCH 33.5 H MCHC 33.9 RDW 13.5 Plt Count 242 MPV 9.6 Immature Gran % (Auto) 0.3 Neut % (Auto) 60.4 Lymph % (Auto) 27.6 [place] % (Auto) 8.1 Eos % (Auto) 2.9 Baso % (Auto) 0.7 Lymph # (Auto) 1.6 [place] # (Auto) 0.5 Eos # (Auto) 0.2 Baso # (Auto) 0.0 Abs Immat Gran (auto) 0.02 Absolute Neuts (auto) 3.6 Absolute Nucleated RBC 0.000 Nucleated RBC % (auto) 0.0 PT INR Sodium Potassium Chloride Carbon Dioxide Anion Gap BUN Creatinine Estim Creat Clear Calc Estimated GFR Random Glucose Lactic Acid Lactic Acid Fup @ 2Hr Calcium Magnesium Total Bilirubin Direct Bilirubin AST ALT Alkaline Phosphatase Total Creatine Kinase Total Protein Albumin Ethyl Alcohol COVID-19 (MARY) COVID-19 Clin Com Imaging Radiology Impressions: ITS Impressions Cervical Spine CT 01/07/21 08:23 IMPRESSION: No acute bony abnormality or prevertebral soft tissue swelling. Chest X-Ray 01/07/21 08:23 IMPRESSION: Unremarkable examination. Head CT 01/07/21 08:23 IMPRESSION: 1. No acute intracranial abnormality. 2. Postsurgical changes. 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 Mental Status Exam Mental Status Exam Patient Appearance: Appropriate Patient Orientation: Person, Place, Time and Situation Level of Consciousness: Awake, Appropriate and Alert Patient Behavior: Appropriate and Talkative Mood Description: Appropriate Affect Description: Appropriate Ability to Follow Directions: Excellent Speech Pattern: Clear Delusions: Not Present Thought Process: Goal Oriented Thought Content: positive for Intact Judgement: Fair Medications Allergies Allergies Allergy/AdvReac Type Severity Reaction Status Date / Time No Known Allergies Allergy Unverified 07/25/20 15:51 [No Known Allergies*] Assessment & Plan Assessment & Plan (1) Alcohol use disorder: Status: Acute Recommendations: Patient agreed to trial of naltrexone 50mg QD Undecided if he wants to pursue outpatient MAT, but will contact RN if he decided he wants to move forward with it Encouraged to call with any questions or concerns Greater than 50% of the session was spent on counseling and/or coordination of care PMFSH Past Medical History Medical History Seizures Family History Family History Father Diabetes Mother No problems noted. Sister No problems noted. Sister No problems noted. Surgical History Surgical History Aneurysm of anterior communicating artery Social History Social History Household Members: None Housing: House Do you presently have visiting nurse or other home services: No Alcohol intake: current Alcohol intake frequency: 3 or more drinks per day Smoking Status: Current some day smoker Tobacco Type: Cigarette Smoked in Last 30 Days: Yes Patient Interested in Nicotine Replacement: No Patient Given Instructions on How to Stop Smoking: No Second Hand Smoke Exposure: No Use of substances other than those prescribed or required for medical reasons: No Substance Use Type: Marijuana Substance Use Type Other:: marijuana Substance Use Frequency: Socially Last Used Substance: Unknown Currently Displaying Signs/Symptoms of Drug Intoxication Withdrawal: No Any prior treatment program specific to substance use: No Have you been hit, kicked, punched, or otherwise hurt by someone within the past year? If so, by whom?: No Do you feel safe in your current relationship?: No Is there a partner from a previous relationship who is making you feel unsafe now?: No Are you made to feel afraid or neglected: No Hoahaoism Healthcare Practices: Taoist Advance Directives: No Advance Directives Information Provided: No Advance Directives on File: No Do you have thoughts of harming others: None Do you have a plan to hurt others: No Plan Recently lost weight without trying: No service: No Current occupational status: employed
== END 2021-01-08 14:42 | disposition home or self-care (01) | DRG 53 ==
LOC: HO.ED 12:52 → HO.EDOVER 15:31 → HO.S3 16:02
PROVIDERS: Nurse Practitioner Acute Care; Nurse Practitioner Family; Admitting Provider Internal Medicine; Emergency Provider Emergency Medicine; PCP Internal Medicine; Visit Provider Internal Medicine
DX: G40.909 Epilepsy, unspecified, not intractable, without status epilepticus (principal); E87.2 Acidosis; G93.89 Other specified disorders of brain; F10.10 Alcohol abuse, uncomplicated; F17.210 Nicotine dependence, cigarettes, uncomplicated; E83.42 Hypomagnesemia; Z20.822 Contact with and (suspected) exposure to COVID-19; Z71.6 Tobacco abuse counseling; Z79.899 Other long term (current) drug therapy
CPT/HCPCS: 36415; 70450; 71045; 72125; 80048; 80076; 80320; 82550; 83605; 83735; 85025; 85610; 87635; 93005; 96365; 96366; 96375; 99284; J1650; J2405; J2560; J3475

== ENCOUNTER 2021-02-25 16:39 | Inpatient (IN) | payer OTHER, SELFPAY ==
--- NOTE | ~2021-02-25 | CT_ITS ---
EXAMINATION: CT HEAD WITHOUT CONTRAST CLINICAL INFORMATION: Seizure activity. COMPARISON: January 07, 2021. TECHNIQUE: Contiguous helical images of the brain were obtained without IV contrast. Multiplanar reconstructions were performed. DLP: 758 mGy-cm. FINDINGS: There are no pathologic extra-axial fluid collections. The lateral, third, fourth ventricles are nondilated and concordant with the appearance of the sulci. There is no evidence for acute intraparenchymal hemorrhage or infarct. There is neither mass nor mass affect. The patient is status post right frontal craniotomy. Hardware is intact. There is stable encephalomalacia within the right frontal lobe with expected ex vacuo dilation of the right frontal horn. There is no shift of midline structures. The paranasal sinuses and mastoid air cells are clear. There are no osseous lesions. CT/CT head/brain wo con IMPRESSION: No evidence for acute intracranial injury. Stable chronic changes. Automated exposure control (Care Dose) Adjustment of the mA and/or kv according to patient size (this includes techniques or standardized protocols for targeted exams where dose is matched to indication / reason for exam; i.e. extremities or head).
--- NOTE | 2021-02-25 16:42 | ECG_ITS ---
Test Reason : SEIZURE Blood Pressure : / mmHG Vent. Rate : 124 BPM Atrial Rate : 124 BPM P-R Int : 132 ms QRS Dur : 074 ms QT Int : 312 ms P-R-T Axes : 050 048 051 degrees QTc Int : 448 ms Sinus tachycardia Otherwise normal ECG When compared with ECG of 07-JAN-2021 08:33, No significant change was found Referred By: Bailey Sanchez Electronically Signed By:Zoltan Gan
[2021-02-25] MEDS: 0.9 % Sodium Chloride 1,000 ML 999 ML IVCONT ×3 (16:55→19:22)
[2021-02-25] MEDS: LORazepam 2 MG/ML VIAL IVPUSH ×3 (16:55→19:21)
--- NOTE | 2021-02-25 16:55 | ED.SEIZURE ---
HPI - Seizure General Chief Complaint: Seizure Stated Complaint: seizure Time Seen by Provider: 02/25/21 16:41 Source: patient Mode of arrival: ambulatory Limitations: other (postictal ) History of Present Illness HPI Narrative: 46 yo male with heavy ETOH use last drink yesterday was with his friend whom he asked to help him go for a drink in the car had GTC activity - brought to ED, on arrival to ED, postictal but answering some questions, bit tongue, prior episodes of withdrawal seizures MD complaint: seizure Onset (ago): minute(s) Description of Episode: loss of consciousness and tonic-clonic movement Witnessed: Yes - by Bystander Trauma: No Seizure History: Yes Place: car Possible Precipitating Event: alcohol withdrawal Associated symptoms: denies other symptoms Treatments prior to arrival: none Related Data Home Medications Medication Instructions Recorded Confirmed omeprazole 20 mg PO DAILY PRN 01/07/21 02/25/21 Previous Rx's Medication Instructions Recorded levetiracetam 500 mg PO BID #60 tab 01/08/21 naltrexone 50 mg PO DAILY #30 tab 01/08/21 Allergies Allergy/AdvReac Type Severity Reaction Status Date / Time No Known Allergies Allergy Verified 02/25/21 17:12 [No Known Allergies*] Review of Systems Review of Systems: ROS unable to be obtained due to altered mental status PMFSH Past Medical History Attestation statement: The following information was validated with the patient. Medical History Seizures Surgical History Aneurysm of anterior communicating artery Family History Family History Father Diabetes Mother No problems noted. Sister No problems noted. Sister No problems noted. Social History Social History Household Members: None Housing: House Alcohol intake: current Alcohol intake frequency: a few times a week Smoking Status: Current every day smoker Tobacco Type: Cigarette Second Hand Smoke Exposure: No Use of substances other than those prescribed or required for medical reasons: No Substance Use Type: Marijuana Advance Directives: No Advance Directives Information Provided: No service: No Current occupational status: employed Physical Exam Vital Signs: Vital Signs: Last Vital Signs Temp 98.4 F 02/25/21 17:10 Pulse 107 H 02/25/21 18:42 Resp 16 02/25/21 18:42 BP 144/83 H 02/25/21 18:42 Pulse Ox 98 02/25/21 18:42 Body Mass Index 23.4 Appearance: Alert. Oriented X2. Anxious mild acute distress. Eyes: Pupils equal, round and reactive to light. ENT: Pharynx normal. Tongue abrasions noted Neck: Normal inspection. Neck supple. CVS: Normal heart rate and rhythm. Pulses normal. Respiratory: No respiratory distress. Breath sounds normal. Abdomen: Soft and nontender. Skin: Skin warm and dry. Normal skin color. Normal skin turgor. Extremities: No lower extremity edema. No calf ttp Neuro: Oriented X 2. No motor deficit. No sensory deficit. Course Course Course Narrative: repeat 2mg IV ativan for shakiness, HR 127 repeat ativan HCO3 could be AKA vs seizure - fluids, VBG, lactic acid, D5NS started lactic acidosis due to seizure and not infection or severe sepsis MDM - Seizure MDM Narrative Medical decision making narrative: 46 yo male with seizure activity in setting of ETOH withdrawal - no trauma, currently postictal but protecting airway and able to answer questions at this time will obtain labs, IV ativan 2mg, start phenobarb protocol, likely admit Lab Data Result diagrams: 02/25/21 16:57 02/25/21 16:59 Labs: Lab Results 02/25/21 02/25/21 02/25/21 Range/Units 16:57 16:57 16:58 WBC 9.7 (4.8-10.8) X10*3/uL RBC 5.11 D (4.60-5.80) X10*6/uL Hgb 17.6 D (14.0-18.0) g/dl Hct 53.1 H D (42-52) % MCV 103.9 H (80-98) fL MCH 34.4 H (27.0-33.0) pg MCHC 33.1 (31.0-36.0) g/dl RDW 17.0 H (11.0-16.0) % Plt Count 299 (160-400) X10*3/uL MPV 9.3 L (9.4-12.4) fL Immature Gran % (Auto) 0.3 (0.0-0.4) % Neut % (Auto) 67.6 (45-73) % Lymph % (Auto) 22.2 (20-40) % [place] % (Auto) 8.4 (2-11) % Eos % (Auto) 0.7 (0-4) % Baso % (Auto) 0.8 (0-2) % Lymph # (Auto) 2.2 (1.2-4.9) X10*3/uL [place] # (Auto) 0.8 (0.1-1.2) X10*3/uL Eos # (Auto) 0.1 (0.0-0.4) X10*3/uL Baso # (Auto) 0.1 (0.0-0.2) X10*3/uL Abs Immat Gran (auto) 0.03 (0.00-0.03) X10*3/uL Absolute Neuts (auto) 6.6 (2.0-8.3) X10*3/uL Absolute Nucleated RBC 0.000 (0.0-0.012) X10*3/uL Nucleated RBC % (auto) 0.0 (0.0-0.2) /100WBC PT 12.3 (10.8-13.0) SEC INR 1.0 (0.9-1.1) APTT 32.7 (24.1-38.0) SEC VBG pH (7.32-7.43) VBG pCO2 mmHg VBG pO2 mmHg VBG HCO3 (22-26) mmol/L VBG O2 Saturation % VBG Base Excess mmol/L Sodium (135-145) mmol/L Potassium (3.3-5.1) mmol/L Chloride (96-108) mmol/L Carbon Dioxide (22-29) mmol/L Anion Gap (12-20) BUN (9-16) mg/dL Creatinine (0.5-1.4) mg/dL Estim Creat Clear Calc Estimated GFR Random Glucose (60-115) mg/dL Lactic Acid (0.5-2.0) mmol/L Calcium (8.4-10.2) mg/dL Magnesium (1.6-2.6) mg/dL Total Bilirubin (0.0-1.0) mg/dL Direct Bilirubin (0.0-0.5) mg/dL AST (5-37) U/L ALT (0-40) U/L Alkaline Phosphatase (39-117) U/L Total Protein (6.5-8.0) g/dL Albumin (3.5-5.0) g/dL Lipase (8-78) U/L Ethyl Alcohol < 10 mg/dL COVID-19 (MARY) (Negative) COVID-19 Clin Com 02/25/21 02/25/21 02/25/21 Range/Units 16:59 16:59 18:28 WBC (4.8-10.8) X10*3/uL RBC (4.60-5.80) X10*6/uL Hgb (14.0-18.0) g/dl Hct (42-52) % MCV (80-98) fL MCH (27.0-33.0) pg MCHC (31.0-36.0) g/dl RDW (11.0-16.0) % Plt Count (160-400) X10*3/uL MPV (9.4-12.4) fL Immature Gran % (Auto) (0.0-0.4) % Neut % (Auto) (45-73) % Lymph % (Auto) (20-40) % [place] % (Auto) (2-11) % Eos % (Auto) (0-4) % Baso % (Auto) (0-2) % Lymph # (Auto) (1.2-4.9) X10*3/uL [place] # (Auto) (0.1-1.2) X10*3/uL Eos # (Auto) (0.0-0.4) X10*3/uL Baso # (Auto) (0.0-0.2) X10*3/uL Abs Immat Gran (auto) (0.00-0.03) X10*3/uL Absolute Neuts (auto) (2.0-8.3) X10*3/uL Absolute Nucleated RBC (0.0-0.012) X10*3/uL Nucleated RBC % (auto) (0.0-0.2) /100WBC PT (10.8-13.0) SEC INR (0.9-1.1) APTT (24.1-38.0) SEC VBG pH (7.32-7.43) VBG pCO2 mmHg VBG pO2 mmHg VBG HCO3 (22-26) mmol/L VBG O2 Saturation % VBG Base Excess mmol/L Sodium 142 (135-145) mmol/L Potassium 3.9 (3.3-5.1) mmol/L Chloride 98 (96-108) mmol/L Carbon Dioxide 10 L* D (22-29) mmol/L Anion Gap 38 H (12-20) BUN 7 L (9-16) mg/dL Creatinine 1.18 (0.5-1.4) mg/dL Estim Creat Clear Calc 93.4 Estimated GFR > 60 Random Glucose 161 H D (60-115) mg/dL Lactic Acid 3.8 H* (0.5-2.0) mmol/L Calcium 9.6 D (8.4-10.2) mg/dL Magnesium 1.8 (1.6-2.6) mg/dL Total Bilirubin 0.9 (0.0-1.0) mg/dL Direct Bilirubin 0.4 (0.0-0.5) mg/dL AST 58 H (5-37) U/L ALT 41 H (0-40) U/L Alkaline Phosphatase 186 H D (39-117) U/L Total Protein 9.3 H (6.5-8.0) g/dL Albumin 4.5 (3.5-5.0) g/dL Lipase 38 (8-78) U/L Ethyl Alcohol mg/dL COVID-19 (MARY) Negative (Negative) COVID-19 Clin Com See Note 02/25/21 Range/Units 18:32 WBC (4.8-10.8) X10*3/uL RBC (4.60-5.80) X10*6/uL Hgb (14.0-18.0) g/dl Hct (42-52) % MCV (80-98) fL MCH (27.0-33.0) pg MCHC (31.0-36.0) g/dl RDW (11.0-16.0) % Plt Count (160-400) X10*3/uL MPV (9.4-12.4) fL Immature Gran % (Auto) (0.0-0.4) % Neut % (Auto) (45-73) % Lymph % (Auto) (20-40) % [place] % (Auto) (2-11) % Eos % (Auto) (0-4) % Baso % (Auto) (0-2) % Lymph # (Auto) (1.2-4.9) X10*3/uL [place] # (Auto) (0.1-1.2) X10*3/uL Eos # (Auto) (0.0-0.4) X10*3/uL Baso # (Auto) (0.0-0.2) X10*3/uL Abs Immat Gran (auto) (0.00-0.03) X10*3/uL Absolute Neuts (auto) (2.0-8.3) X10*3/uL Absolute Nucleated RBC (0.0-0.012) X10*3/uL Nucleated RBC % (auto) (0.0-0.2) /100WBC PT (10.8-13.0) SEC INR (0.9-1.1) APTT (24.1-38.0) SEC VBG pH 7.39 (7.32-7.43) VBG pCO2 39 mmHg VBG pO2 32 mmHg VBG HCO3 24 (22-26) mmol/L VBG O2 Saturation 49.0 % VBG Base Excess -0.6 mmol/L Sodium (135-145) mmol/L Potassium (3.3-5.1) mmol/L Chloride (96-108) mmol/L Carbon Dioxide (22-29) mmol/L Anion Gap (12-20) BUN (9-16) mg/dL Creatinine (0.5-1.4) mg/dL Estim Creat Clear Calc Estimated GFR Random Glucose (60-115) mg/dL Lactic Acid (0.5-2.0) mmol/L Calcium (8.4-10.2) mg/dL Magnesium (1.6-2.6) mg/dL Total Bilirubin (0.0-1.0) mg/dL Direct Bilirubin (0.0-0.5) mg/dL AST (5-37) U/L ALT (0-40) U/L Alkaline Phosphatase (39-117) U/L Total Protein (6.5-8.0) g/dL Albumin (3.5-5.0) g/dL Lipase (8-78) U/L Ethyl Alcohol mg/dL COVID-19 (MARY) (Negative) COVID-19 Clin Com ECG Data Attestation: I personally reviewed and interpreted this ECG as follows: ECG interpretation date: 02/25/21 ECG interpretation time: 17:26 Interpretation: Rate: 124 Rhythm: sinus tachycardia [place]: normal Normal P waves. Normal [place]. Normal QRS complex. ST T wave : normal no VASILE qTC: normal prior studies: no acute ischemia The study has been interpreted contemporaneously by me. . Critical Care Time Critical Care Time Critical Care Time: Yes Total Critical Care Time: 30 Attestation: IV ativan x 2, IVF I attest to this time spent taking care of the patient Discharge Plan Discharge Clinical Impression: Alcohol withdrawal seizure, Acidosis, lactic Patient Disposition: Admitted As Inpatient
[2021-02-25 17:07] LABS: MANUAL DIFF FLAG NO
[2021-02-25 17:10] VITALS: BP 140/94; PULSE 126; RESP 18; TEMP 36.9; O2SAT 95; BMI 23.4
[2021-02-25 17:10] LABS: Basophils Absolute Auto 0.1 X10*3/uL (0.0-0.2); Basophils Percent Auto 0.8 % (0-2); Eosinophils Absolute Auto 0.1 X10*3/uL (0.0-0.4); Eosinophils Percent Auto 0.7 % (0-4); Hematocrit 53.1 % (42-52); Hemoglobin 17.6 g/dl (14.0-18.0); Imm Gran Abs Auto 0.03 X10*3/uL (0.00-0.03); Imm Gran Pct Auto 0.3 % (0.0-0.4); Lymphocytes Absolute Auto 2.2 X10*3/uL (1.2-4.9); Lymphocytes Percent Auto 22.2 % (20-40); Mean Corpuscular HGB Conc 33.1 g/dl (31.0-36.0); Mean Corpuscular Hemoglobin 34.4 pg (27.0-33.0); Mean Corpuscular Volume 103.9 fL (80-98); Mean Platelet Volume 9.3 fL (9.4-12.4); Monocytes Absolute Auto 0.8 X10*3/uL (0.1-1.2); Monocytes Percent Auto 8.4 % (2-11); Neutrophils Absolute Auto 6.6 X10*3/uL (2.0-8.3); Neutrophils Percent Auto 67.6 % (45-73); Platelet Count 299 X10*3/uL (160-400); Red Blood Count 5.11 X10*6/uL (4.60-5.80); White Blood Count 9.7 X10*3/uL (4.8-10.8)
--- NOTE | 2021-02-25 17:14 | PC.NURSE ---
Pt pulled out of car with friend with this RN and supervisor propellant charge loading. Pt obtunded in car, drooling, drowsy. Assisted to stretcher and moved to room 4. Pt more alert at this time but postictal. Able to report ho seizures but unable to give full history. Seizure precautions initiated, IV placed to left forearm, fluids infusing and Ativan given. Sinus tachy on tele rate 120s.
[2021-02-25 17:16] VITALS: BP 151/85; PULSE 127; RESP 16; O2SAT 95
[2021-02-25 17:19] LABS: Prothrombin Time 12.3 SEC (10.8-13.0)
[2021-02-25 17:21] LABS: Partial Thromboplastin Time 32.7 SEC (24.1-38.0)
[2021-02-25 17:28] LABS: Ethanol < 10 mg/dL
[2021-02-25 17:31] LABS: COVID-19 Test Negative (Negative); IDNOW Serial# 9DD0AD1C
[2021-02-25 17:49] LABS: Alanine Aminotransferase 41 U/L (0-40); Albumin Level 4.5 g/dL (3.5-5.0); Alkaline Phosphatase 186 U/L (39-117); Anion Gap 38 (12-20); Aspartate Amino Transferase 58 U/L (5-37); Bilirubin Direct 0.4 mg/dL (0.0-0.5); Bilirubin Total 0.9 mg/dL (0.0-1.0); Blood Urea Nitrogen 7 mg/dL (9-16); Calcium 9.6 mg/dL (8.4-10.2); Carbon Dioxide 10 mmol/L (22-29); Chloride 98 mmol/L (96-108); Creatinine Clr Calc Pharmacy 93.4; Estimated Glomerular Filt Rate > 60; Glucose Random 161 mg/dL (60-115); Lipase 38 U/L (8-78); Magnesium 1.8 mg/dL (1.6-2.6); Potassium 3.9 mmol/L (3.3-5.1); Sodium 142 mmol/L (135-145); Total Protein 9.3 g/dL (6.5-8.0)
[2021-02-25] MEDS: PHENobarbitaL sodium 130 MG/ML VIAL 338 MG IM (18:12)
[2021-02-25] MEDS: ondansetron HCL 4 MG/2 ML VIAL IVPUSH (18:25)
[2021-02-25] MEDS: Dextrose 5 % and 0.9 % NaCl 1,000 ML 125 ML IVCONT (18:40)
--- NOTE | 2021-02-25 18:41 | PC.NURSE ---
Pt medicated as charted, now asleep with eyes closed. HR trending down and currently 107. Phenobarb to b/l deltoid sites. When awake pt was noted to have two vomiting episodes and hallucinating. VSS
[2021-02-25 18:42] VITALS: BP 144/83; PULSE 107; RESP 16; O2SAT 98
[2021-02-25 18:46] LABS: VBG Base Excess -0.6 mmol/L; VBG HCO3 24 mmol/L (22-26); VBG pCO2 39 mmHg; VBG pH 7.39 (7.32-7.43); VBG pO2 32 mmHg
[2021-02-25 18:51] LABS: Venous Blood Gas Refer to POC result
[2021-02-25 19:11] LABS: Lactic Acid 3.8 mmol/L (0.5-2.0)
--- NOTE | 2021-02-25 19:42 | PC.NURSE ---
HOSPITALIST IN ROOM FOR EVAL. PT ON MONITOR. PT MEDICATED PER EMAR FOR JULIAN. PT IS CONFUSED TO PLACE AND TRYING TO STAND UP. PT REDIRECTED. PT AWAKE AND ALERT, RESPIRATONS EASY, N/L. SKIN W/D. PT BEING ADMITTED AT THIS TIME.
[2021-02-25 20:00] VITALS: BP 108/78; PULSE 80; RESP 18
[2021-02-25] MEDS: Thiamine HCL 200 MG/2 ML VIAL 100 MG IVPUSH (20:11)
[2021-02-25 20:34] LABS: Reflex Lactate? Lactic Acid Added
[2021-02-25 22:00] VITALS: BP 111/73; PULSE 62; RESP 20; O2SAT 97
[2021-02-25] MEDS: PHENobarbitaL sodium 130 MG/ML VIAL 253 MG IM (22:00)
--- NOTE | 2021-02-25 23:05 | PM.IMHP ---
History of Present Illness Date of Service: 02/25/21 Chief Complaint: seizure This is a 46-year-old male with past medical history of seizures who presents to the hospital with complaints of breakthrough seizure. Patient also uses alcohol. He is postictal and therefore history is mostly obtained from ED physician and EMR. It appears that patient stop drinking about a day ago, was in the car with his friend and that is when he started seizing. Patient himself is arousable but goes right back to sleep. He does not have any acute complaints. Unable to review all of his systems as patient to lethargic. On arrival to the ED hemodynamically stable with no significant abnormal vitals heart rate of 120 that now normalized. Labs on arrival significant for WBC count of 9.7, hemoglobin of 17.6, sodium of 142, potassium 3.9, BUN of 7, creatinine of 1.18 lactic acid of 3.8 AST of 58, ALT of 41, alk-phos of 186, COVID-19 negative Review of Systems Review of Systems: Yes Unobtainable due to mental status [facility] Medical History Seizures Family History Father Diabetes Mother No problems noted. Sister No problems noted. Sister No problems noted. Surgical History Aneurysm of anterior communicating artery Social History Household Members: None Housing: House Alcohol intake: current Alcohol intake frequency: a few times a week Smoking Status: Current every day smoker Tobacco Type: Cigarette Second Hand Smoke Exposure: No Use of substances other than those prescribed or required for medical reasons: No Substance Use Type: Marijuana Advance Directives: No Advance Directives Information Provided: No service: No Current occupational status: employed Meds Allergies Allergy/AdvReac Type Severity Reaction Status Date / Time No Known Allergies Allergy Verified 02/25/21 17:12 [No Known Allergies*] Active Medications: Current Medications Generic Name Dose Route Start Last Admin Trade Name Freq PRN Reason Stop Dose Admin Medication 1 each 02/25/21 17:45 No Benzodiazepines MISCELLANE DAILY [facility] Pharmacy Consult 1 each 02/25/21 16:42 Consult Rx Perform Med Rec MISCELLANE ONCE PRN Consult order Phenobarbital 60 mg 02/26/21 09:00 Phenobarbital 30 Mg Tablet PO 02/27/21 21:01 BID [facility] Protocol Phenobarbital 30 mg 02/28/21 09:00 Phenobarbital 30 Mg Tablet PO 03/01/21 21:01 BID [facility] Protocol Phenobarbital 30 mg 03/02/21 09:00 Phenobarbital 30 Mg Tablet PO 03/03/21 09:01 DAILY [facility] Protocol Phenobarbital Sodium 253 mg 02/25/21 21:00 Phenobarbital Sodium 130 Mg/Ml Vial IM 02/26/21 00:01 Q3H [facility] Protocol Home Medications Medication Instructions Recorded Confirmed Last Taken Type omeprazole 20 mg PO DAILY PRN 01/07/21 02/25/21 Unknown History Physical Exam Vital Signs and Narrative: Vital Signs: Last Vital Signs Temp 98.4 F 02/25/21 17:10 Pulse 107 H 02/25/21 18:42 Resp 16 02/25/21 18:42 BP 144/83 H 02/25/21 18:42 Pulse Ox 98 02/25/21 18:42 Body Mass Index 23.4 Const: Other: Patient is somnolent Eyes: General: appearance normal, both eyes and all related structures Resp: Effort & Inspection: normal respiratory effort and able to speak in complete sentences Cardio: Rate: regular rate Rhythm: regular rhythm GI: Palpation (GI): Soft to palpation Auscultation: normal bowel sounds Skin: General skin exam: no rashes or lesions noted Neuro: Cognition (Neuro): normal cognition Extrem: General: Yes normal to inspection and Yes no pedal edema Results Labs CBC and Chem 7: 02/26/21 04:43 02/26/21 04:43 Labs: Laboratory Results - last 24 hr 02/25/21 02/25/21 02/25/21 16:57 16:57 16:58 MCV 103.9 H MCH 34.4 H MCHC 33.1 RDW 17.0 H Plt Count 299 MPV 9.3 L Immature Gran % (Auto) 0.3 Neut % (Auto) 67.6 Lymph % (Auto) 22.2 [place] % (Auto) 8.4 Eos % (Auto) 0.7 Baso % (Auto) 0.8 Lymph # (Auto) 2.2 [place] # (Auto) 0.8 Eos # (Auto) 0.1 Baso # (Auto) 0.1 Abs Immat Gran (auto) 0.03 Absolute Neuts (auto) 6.6 Absolute Nucleated RBC 0.000 Nucleated RBC % (auto) 0.0 PT 12.3 INR 1.0 APTT 32.7 VBG pH VBG pCO2 VBG pO2 VBG HCO3 VBG O2 Saturation VBG Base Excess Anion Gap Estim Creat Clear Calc Estimated GFR Random Glucose Lactic Acid Calcium Magnesium Total Bilirubin Direct Bilirubin AST ALT Alkaline Phosphatase Total Protein Albumin Lipase Ethyl Alcohol < 10 COVID-19 (MARY) COVID-19 Clin Com 02/25/21 02/25/21 02/25/21 16:59 16:59 18:28 MCV MCH MCHC RDW Plt Count MPV Immature Gran % (Auto) Neut % (Auto) Lymph % (Auto) [place] % (Auto) Eos % (Auto) Baso % (Auto) Lymph # (Auto) [place] # (Auto) Eos # (Auto) Baso # (Auto) Abs Immat Gran (auto) Absolute Neuts (auto) Absolute Nucleated RBC Nucleated RBC % (auto) PT INR APTT VBG pH VBG pCO2 VBG pO2 VBG HCO3 VBG O2 Saturation VBG Base Excess Anion Gap 38 H Estim Creat Clear Calc 93.4 Estimated GFR > 60 Random Glucose 161 H D Lactic Acid 3.8 H* Calcium 9.6 D Magnesium 1.8 Total Bilirubin 0.9 Direct Bilirubin 0.4 AST 58 H ALT 41 H Alkaline Phosphatase 186 H D Total Protein 9.3 H Albumin 4.5 Lipase 38 Ethyl Alcohol COVID-19 (MARY) Negative COVID-19 Clin Com See Note 02/25/21 18:32 MCV MCH MCHC RDW Plt Count MPV Immature Gran % (Auto) Neut % (Auto) Lymph % (Auto) [place] % (Auto) Eos % (Auto) Baso % (Auto) Lymph # (Auto) [place] # (Auto) Eos # (Auto) Baso # (Auto) Abs Immat Gran (auto) Absolute Neuts (auto) Absolute Nucleated RBC Nucleated RBC % (auto) PT INR APTT VBG pH 7.39 VBG pCO2 39 VBG pO2 32 VBG HCO3 24 VBG O2 Saturation 49.0 VBG Base Excess -0.6 Anion Gap Estim Creat Clear Calc Estimated GFR Random Glucose Lactic Acid Calcium Magnesium Total Bilirubin Direct Bilirubin AST ALT Alkaline Phosphatase Total Protein Albumin Lipase Ethyl Alcohol COVID-19 (MARY) COVID-19 Clin Com Imaging Radiologist's Impressions: Impressions Head CT 02/25/21 16:42 IMPRESSION: No evidence for acute intracranial injury. Stable chronic changes. Automated exposure control (Care Dose) Adjustment of the mA and/or kv according to patient size (this includes techniques or standardized protocols for targeted exams where dose is matched to indication / reason for exam; i.e. extremities or head). Assessment and Plan (1) Alcohol withdrawal seizure: Qualifiers: Complication of substance-induced condition: with unspecified complication Qualified Code(s): F10.239 - Alcohol dependence with withdrawal, unspecified; R56.9 - Unspecified convulsions Status: Acute (2) Acidosis, lactic: Status: Acute (3) Alcohol use disorder: Status: Acute 46-year-old male with past medical history of seizure and alcohol abuse presents to the hospital with seizure episode # breakthrough seizure - possibly secondary to breakthrough seizure-has underlying seizure versus alcohol withdrawal seizure - patient on Keppra - will check Keppra level - continue Keppra - start phenobarb for alcohol withdrawal # alcohol abuse with potential for withdrawal - last drink was day prior to presentation - unclear how much he drinks - received 2mg of ativan - currently on phenobarbital protocol - thiamine and folic acid supplement DVT prophylaxis: Lovenox
[2021-02-26] VITALS (9 sets, daily range): BP systolic 101–130; BP diastolic 48–87; PULSE 53–93; RESP 12–20; TEMP 36.4–37.1; O2SAT 96–99
[2021-02-26] MEDS: PHENobarbitaL sodium 130 MG/ML VIAL 253 MG IM (01:00)
--- NOTE | 2021-02-26 01:00 | PC.NURSE ---
pt denies any compliants. pt remains on monitor. pt medicated as per emar.
[2021-02-26 01:35] LABS: ~Lactic Acid-LAB USE ONLY 1.8 mmol/L (0.5-2.0)
[2021-02-26 05:01] LABS: MANUAL DIFF FLAG NO
[2021-02-26 05:08] LABS: Basophils Percent Auto 0.6 % (0-2); Eosinophils Absolute Auto 0.1 X10*3/uL (0.0-0.4); Eosinophils Percent Auto 1.2 % (0-4); Hematocrit 42.5 % (42-52); Imm Gran Abs Auto 0.01 X10*3/uL (0.00-0.03); Imm Gran Pct Auto 0.1 % (0.0-0.4); Lymphocytes Percent Auto 15.5 % (20-40); Mean Corpuscular HGB Conc 32.9 g/dl (31.0-36.0); Mean Corpuscular Hemoglobin 33.8 pg (27.0-33.0); Mean Corpuscular Volume 102.7 fL (80-98); Mean Platelet Volume 9.2 fL (9.4-12.4); Monocytes Absolute Auto 0.7 X10*3/uL (0.1-1.2); Monocytes Percent Auto 9.7 % (2-11); Neutrophils Absolute Auto 4.9 X10*3/uL (2.0-8.3); Neutrophils Percent Auto 72.9 % (45-73); Platelet Count 184 X10*3/uL (160-400); Red Blood Count 4.14 X10*6/uL (4.60-5.80); White Blood Count 6.7 X10*3/uL (4.8-10.8)
[2021-02-26 05:59] LABS: Anion Gap 12 (12-20); Blood Urea Nitrogen 7 mg/dL (9-16); Carbon Dioxide 25 mmol/L (22-29); Chloride 106 mmol/L (96-108); Creatinine Clr Calc Pharmacy 141.4; Estimated Glomerular Filt Rate > 60; Glucose Random 80 mg/dL (60-115); Sodium 139 mmol/L (135-145)
[2021-02-26] MEDS: 0.9 % Sodium Chloride Flush 3 ML SYRINGE IVFLUSH ×4 (06:13→23:42)
[2021-02-26] MEDS: Folic Acid 1 MG TABLET PO (08:25)
[2021-02-26] MEDS: PHENobarbitaL 30 MG TABLET 60 MG PO ×2 (08:25→20:22)
[2021-02-26] MEDS: Thiamine HCL 100 MG TABLET PO (08:25)
[2021-02-26] MEDS: levETIRAcetam 500 MG TABLET PO ×2 (08:25→20:22)
[2021-02-26] MEDS: Naltrexone HCl 50 MG TABLET PO (09:05)
[2021-02-26] MEDS: Enoxaparin Sodium 40 MG/0.4 ML SYRINGE SUBCUT (09:45)
--- NOTE | 2021-02-26 12:17 | HO.PM.IMPN ---
Subjective Subjective Date of Service: 02/26/21 Interval History: Patient resting in bed offers no acute complaints, no further seizures noted in the emergency room, tolerated breakfast. ROS General no headache,no fever CVS no chest pain, no palpitation. Respiratory no cough, no sob Gastrointestinal no nausea, no vomiting, no abdominal pain Physical Exam Vital Signs: Vital Signs: Last Vital Signs Temp 98.4 F 02/25/21 17:10 Pulse 70 02/26/21 08:28 Resp 17 02/26/21 08:28 BP 101/67 02/26/21 08:28 Pulse Ox 97 02/26/21 08:28 Body Mass Index 23.4 General resting comfortably,no acute distress. Neck supple, no JVD. CVS regular rate rhythm, Respiratory lungs clear to auscultation, no respiratory distress, no wheeze, no rhonchi. Gastrointestinal abdomen soft, nontender, bowel sounds audible, no guarding , no rigidity. Extremities no edema. Neuro nonfocal ,moving all 4 extremity, speech clear. Skin no rash Objective Data Current Medications Generic Name Dose Route Start Last Admin Trade Name Zachq PRN Reason Stop Dose Admin Acetaminophen 650 mg 02/26/21 02:22 Acetaminophen 325 Mg Tablet PO Q6H PRN Pain, Mild (Pain Scale 1-3) Docusate Sodium 100 mg 02/26/21 02:22 Docusate Sodium 100 Mg Capsule PO DAILY PRN Constipation Enoxaparin Sodium 40 mg 02/26/21 09:15 02/26/21 09:45 Enoxaparin Sodium 40 Mg/0.4 Ml Syringe SUBCUT 40 mg Q24H MARY JANE Administration Folic Acid 1 mg 02/26/21 09:00 02/26/21 08:25 Folic Acid 1 Mg Tablet PO 1 mg DAILY MARY JANE Administration Levetiracetam 500 mg 02/26/21 09:00 02/26/21 08:25 Levetiracetam 500 Mg Tablet PO 500 mg BID MARY JANE Administration Medication 1 each 02/25/21 17:45 No Benzodiazepines MISCELLANE DAILY MARY JANE Naltrexone HCl 50 mg 02/26/21 09:00 02/26/21 09:05 Naltrexone Hcl 50 Mg Tablet PO 50 mg DAILY MARY JANE Administration Omeprazole 20 mg 02/26/21 02:22 Omeprazole 20 Mg Capsule.Dr PO DAILY PRN Acid Reflux Ondansetron HCl 4 mg 04/21/21 02:22 Ondansetron Hcl 4 Mg/2 Ml Vial IVPUSH Q8H PRN Nausea and Vomiting Pharmacy Consult 1 each 02/25/21 16:42 Consult Rx Perform Med Rec MISCELLANE ONCE PRN Consult order Phenobarbital 60 mg 02/26/21 09:00 02/26/21 08:25 Phenobarbital 30 Mg Tablet PO 02/27/21 21:01 60 mg BID MARY JANE Administration Protocol Phenobarbital 30 mg 02/28/21 09:00 Phenobarbital 30 Mg Tablet PO 03/01/21 21:01 BID MARY JANE Protocol Phenobarbital 30 mg 03/02/21 09:00 Phenobarbital 30 Mg Tablet PO 03/03/21 09:01 DAILY MARY JANE Protocol Sodium Chloride 3 ml 02/26/21 02:22 02/26/21 09:06 0.9 % Sodium Chloride Flush 3 Ml Syringe IVFLUSH 3 ml QSHIFT MARY JANE Administration Thiamine HCl 100 mg 02/26/21 09:00 02/26/21 08:25 Thiamine Hcl 100 Mg Tablet PO 100 mg DAILY MARY JANE Administration Labs CBC & Chem 7: 02/26/21 04:43 02/26/21 04:43 Assessment and Plan (1) Alcohol withdrawal seizure: Status: Acute (2) Alcohol use disorder: Status: Acute (3) Seizure disorder: Status: Acute (4) Acidosis, lactic: Status: Acute Assessment and Plan: 46-year-old gentleman with past medical history aneurysmal clipping and right frontal encephalomalacia and subsequent seizure on Keppra 500 mg b.i.d. brought into [facility] after witnessed seizure, patient last drink was 24 hours prior to presentation. # breakthrough seizure No recurrent seizures since admit - possibly secondary to alcohol withdrawal alcohol level less than 10 versus medication noncompliance - continue home dose of Keppra, follow Keppra level - continue phenobarb for alcohol withdrawal Continue seizure precaution. Outpatient follow-up with primary neurologist Dr. Dykes # alcohol abuse with potential for withdrawal last drink was day prior to presentation, status post 2 mg of Ativan in the emergency room now on phenobarb protocol continue thiamine and folic acid Obtain care team eval, strong recommendation to abstain from alcohol DVT prophylaxis: Lovenox
--- NOTE | 2021-02-26 14:13 | PC.NURSE ---
PT EATING LUNCH WITH NO ISSUE. I DON'T WANNA BE THAT PANDA THAT JUST LEAVES BUT I DON'T NEED TO BE HERE , REORIENTED AND REASSURED. PT PULLED OUT HIS IV, WONDERING WHAT IT WAS. #20 PLACED IN L AC AND WRAPPED. PT APOLOGETIC, COOPERATIVE AT THIS TIME. NO TREMORS NOTED.
--- NOTE | 2021-02-26 14:16 | PC.NURSE ---
CALL PLACED UP TO [facility] TO GIVE REPORT, AWAITING CALL BACK
[2021-02-26] MEDS: Nicotine 21 MG PATCH.TD24 TRANSDERMA (20:58)
[2021-02-27 04:00] VITALS: BP 123/78; PULSE 81; RESP 20; TEMP 36.4; O2SAT 96
[2021-02-27] MEDS: Hydrocortisone 1 % Cream 28.35 GM TUBE 1 APPL TOPICAL (04:09)
[2021-02-27] MEDS: Nicotine 21 MG PATCH.TD24 TRANSDERMA (07:47)
[2021-02-27] MEDS: Thiamine HCL 100 MG TABLET PO (07:48)
[2021-02-27] MEDS: Enoxaparin Sodium 40 MG/0.4 ML SYRINGE SUBCUT (07:48)
[2021-02-27] MEDS: PHENobarbitaL 30 MG TABLET 60 MG PO (07:48)
[2021-02-27] MEDS: Folic Acid 1 MG TABLET PO (07:48)
[2021-02-27] MEDS: levETIRAcetam 500 MG TABLET PO ×2 (07:48→21:40)
[2021-02-27] MEDS: Naltrexone HCl 50 MG TABLET PO (07:49)
[2021-02-27] MEDS: 0.9 % Sodium Chloride Flush 3 ML SYRINGE IVFLUSH ×3 (07:50→21:40)
[2021-02-27 08:00] VITALS: BP 106/65; PULSE 77; RESP 19; TEMP 36.7; O2SAT 97
--- NOTE | 2021-02-27 09:44 | P.DS_ITS ---
DS: Providers Provider Date of Service: 03/03/21 Date of admission: 02/25/21 23:06 Primary care physician: Kenneth Hurt MD Consults: 02/26/21 12:27 Consult to Care Team Routine Comment: Reason for consultation: alcohol 02/27/21 09:33 Consult to Care Team Routine Comment: Reason for consultation: alcohol abuse and dependence DS: Diagnosis Discharge Diagnosis (1) Alcohol withdrawal seizure: Status: Acute (2) Alcohol use disorder: Status: Acute (3) Seizure disorder: Status: Acute (4) Acidosis, lactic: Status: Acute DS: Medications Discharge Medications Home Medications: Home Medications Medication Instructions Recorded Confirmed omeprazole 20 mg PO DAILY PRN 01/07/21 02/25/21 Previous Rx's Medication Instructions Recorded naltrexone 50 mg PO DAILY #30 tab 01/08/21 levetiracetam 500 mg PO BID #60 tab 02/27/21 DS: Summary Hospital Course Hospital Course: Patient presented after a seizure and was admitted for postictal confusion as well as alcohol withdrawal. The cause of his seizure was likely twofold, 1 noncompliance with his home Keppra dose and 2. Possibly related to alcohol with drawal. He was treated with Keppra and started on phenobarbital per protocol. His electrolytes were monitored and repleted as necessary. He was evaluated by the care team and the appropriate resources were given. He was strongly encouraged compliance with his Keppra as well as complete alcohol cessation. He was encouraged to follow up with his outpatient neurologist. Time Spent with Patient Time attestation: Total time spent providing and/or coordinating discharge services: Discharge coordination time: Greater than 30 minutes Physical Exam Vital Signs: Vital Signs: Last Vital Signs Temp 98.1 F 02/27/21 08:00 Pulse 77 02/27/21 08:00 Resp 19 02/27/21 08:00 BP 106/65 02/27/21 08:00 Pulse Ox 97 02/27/21 08:00 Body Mass Index 23.4 DS: Data Data Completed and Pending Completed studies during hospitalization [Text1]: Procedures Detoxification Services for Substance Abuse Treatment (01/07/21) Discharge Plan Discharge Patient Disposition: Home, Self-Care Discharge Diagnosis: Seizure Referrals: [facility] [Other] - 3-5 Days (YOUR FIRST APPOINTMENT IS Wednesday03/03/21 @ 2:15PM) Kenneth Hurt MD [Primary Care Provider] - 1 Week Sun Dykes MD [Physician] - 1 Month (Call office to schedule appointment) Discharge Medications: Continued levetiracetam 500 mg Tablet 500 mg PO BID Qty: 60 RF: 0 naltrexone 50 mg tablet 50 mg PO DAILY Qty: 30 RF: 0 omeprazole 20 mg Capsule,Delayed Release(Dr/Ec) 20 mg PO DAILY PRN (Reason: Acid Reflux) Qty: 30 RF: 0 Discharge Orders: Discharge Order (Routine); Ordered 02/28/21 Ordered By: Viet Lau Diet: advance to usual diet Activity on Discharge: As tolerated Stand Alone Forms: Patient Portal Discharge page Care Plan Goals: To stay healthy and out of the hospital. Health Concerns: Seizures and Alcohol use Plan of Treatment: Take Keppra as prescribed. Take Neltrexone Stop alcohol use Follow up with Dr. Dykes [facility] Wednesday09[facility]02[facility]2021 Assessment: 46 yo M admitted for seizures. Likely secondary to non-compliance with seizure meds in the setting of alcohol withdrawal. Discharge Date/Time: 02/28/21 11:36
--- NOTE | 2021-02-27 10:07 | MHC.CM.PN ---
Addendum entered by Kely Mensah 02/27/21 13:11: DC CANCELLED. PT RECOMMENDING ACUTE REHAB. CM WILL MEET WITH PT AND MAKE REFERRALS BASED ON HIS PREFERENCES. Original Note: CM MET WITH PT WHO REPORTS HE DOES NOT LIVES ALONE BUT DOES NOT CLARIFY WHO ELSE IS THERE. PT DENIES HAVING SERVICES OR USING DME. PT CONFIRMS HIS PCP IS CLEMENTINA VALDEZ. PT DENIES HAVING A HCP AND IS NOT INTERESTED IN COMPLETING ONE TODAY. PT REPORTS HE BELIEVES HE IS BEING DISCHARGED SOON AND STATES HE FEELS READY TO GO HOME. PT BELIEVES HE WILL HAVE TRANSPORTATION HOME. DC HOME TODAY WITH NO SERVICES
[2021-02-27 10:26] VITALS: BP 106/65; PULSE 77; O2SAT 97
--- NOTE | 2021-02-27 10:56 | HO.PM.IMPN ---
Subjective Subjective Date of Service: 02/27/21 Interval History: seen and examined no complaints d/w him at length re: alcohol use and complaince with meds he tells me that he has not taken his Keppra because he was not sure if he needed to. He tells me that he drinks 6-8 beers daily. when working with PT required multiple Review of systems General - no fevers or chills Cardiovascular - no chest pain Respiratory - no shortness of breath or cough Abdominal- no abdominal pain, nausea, vomiting, diarrhea Physical Exam Vital Signs: Vital Signs: Last Vital Signs Temp 98.1 F 02/27/21 08:00 Pulse 77 02/27/21 10:26 Resp 19 02/27/21 08:00 BP 106/65 02/27/21 10:26 Pulse Ox 97 02/27/21 10:26 Body Mass Index 23.4 Const: Other: General - no acute distress, appears comfortable Cardiovascular - regular rate and rhythm, S1-S2 Lungs - normal respiratory effort, clear to auscultation bilaterally, no wheezing Abdomen - soft, nontender, no rebound or guarding Extremities - no edema bilaterally Neuro - awake and alert, no focal deficits, responses slightly slow Objective Data Current Medications Generic Name Dose Route Start Last Admin Trade Name Freq PRN Reason Stop Dose Admin Acetaminophen 650 mg 02/26/21 02:22 Acetaminophen 325 Mg Tablet PO Q6H PRN Pain, Mild (Pain Scale 1-3) Docusate Sodium 100 mg 02/26/21 02:22 Docusate Sodium 100 Mg Capsule PO DAILY PRN Constipation Enoxaparin Sodium 40 mg 02/26/21 09:15 02/27/21 07:48 Enoxaparin Sodium 40 Mg/0.4 Ml Syringe SUBCUT 40 mg Q24H MARY JANE Administration Folic Acid 1 mg 02/26/21 09:00 02/27/21 07:48 Folic Acid 1 Mg Tablet PO 1 mg DAILY MARY JANE Administration Hydrocortisone 1 appl 02/26/21 20:44 02/27/21 04:09 Hydrocortisone 1 % Cream 28.35 Gm Tube TOPICAL 1 appl DAILY PRN Administration Itching Protocol Levetiracetam 500 mg 02/26/21 09:00 02/27/21 07:48 Levetiracetam 500 Mg Tablet PO 500 mg BID MARY JANE Administration Medication 1 each 02/25/21 17:45 No Benzodiazepines MISCELLANE DAILY MARY JANE Naltrexone HCl 50 mg 02/26/21 09:00 02/27/21 07:49 Naltrexone Hcl 50 Mg Tablet PO 50 mg DAILY MARY JANE Administration Nicotine 21 mg 02/26/21 20:45 02/27/21 07:47 Nicotine 21 Mg Patch.Td24 TRANSDERMA 21 mg DAILY MARY JANE Administration Omeprazole 20 mg 02/26/21 02:22 Omeprazole 20 Mg Capsule.Dr PO DAILY PRN Acid Reflux Ondansetron HCl 4 mg 02/26/21 02:22 Ondansetron Hcl 4 Mg/2 Ml Vial IVPUSH Q8H PRN Nausea and Vomiting Pharmacy Consult 1 each 02/25/21 16:42 Consult Rx Perform Med Rec MISCELLANE ONCE PRN Consult order Phenobarbital 60 mg 02/26/21 09:00 02/27/21 07:48 Phenobarbital 30 Mg Tablet PO 02/27/21 21:01 60 mg BID MARY JANE Administration Protocol Phenobarbital 30 mg 02/28/21 09:00 Phenobarbital 30 Mg Tablet PO 03/01/21 21:01 BID MARY JANE Protocol Phenobarbital 30 mg 03/02/21 09:00 Phenobarbital 30 Mg Tablet PO 03/03/21 09:01 DAILY MARY JANE Protocol Sodium Chloride 3 ml 02/26/21 02:22 02/27/21 07:50 0.9 % Sodium Chloride Flush 3 Ml Syringe IVFLUSH 3 ml QSHIFT MARY JANE Administration Thiamine HCl 100 mg 02/26/21 09:00 02/27/21 07:48 Thiamine Hcl 100 Mg Tablet PO 100 mg DAILY MARY JANE Administration Labs CBC & Chem 7: 02/26/21 04:43 02/26/21 04:43 Assessment and Plan (1) Alcohol withdrawal seizure: Status: Acute (2) Alcohol use disorder: Status: Acute (3) Seizure disorder: Status: Acute (4) Acidosis, lactic: Status: Acute Assessment and Plan: 46-year-old gentleman with past medical history aneurysmal clipping and right frontal encephalomalacia and subsequent seizure on Keppra 500 mg b.i.d. brought into [facility] after witnessed seizure, patient last drink was 24 hours prior to presentation. 1. Alcohol withdrawal with seizures pt appears to have a prolonged post-ictal state. ALthough he has improved, when working with PT -- he was unable to follow cues appropriately. could be multifactorial including post-ictal state or medication related He has received multiple does of phenobarb -- will stop oral phenobarb and assess monitor lytes 2. Seizures multifactorial including alcohol withdrawal + non-compliance with keppra seizure precautions has been restarted on his home dose keppra if continues to have prolonged post-ictal state will get neurology invovled Full Code DVT pptx, Patient needs to remain inpatient at this time as he is unsafe for discharge due to prolonged post-ictal state
--- NOTE | 2021-02-27 11:58 | MHC.RECOVRN ---
T/w met with pt after consult was placed to CARE Team. Pt familiar with t/w from previous admission in early January. Pt had been started on naltrexone for AUD. Pt states I would take it Wednesday through Wednesday but not on the weekends if I was going out. Pt educated regarding naltrexone and appropriate administration. Pt reports going out twice since the last time and drinking to excess. When asked to quantify, pt states 10 beers and a couple shots. Pt reports a normal day would be a glass of wine with dinner or a couple beers if they are in the fridge. When asked asked medication compliance in general, pt states I have a drawer where I keep them and take everything at the same time as my heartburn medication. Importance of medication compliance discussed as well as ways to simplify-ex. pill box. Pt agrees obtaining a pill box would be useful and would like to try that. Discussion regarding recovery continued, pt would like to decrease alcohol use, not necessarily stop completely at this point. [facility] was discussed, pt agreeable to appt and following up. Pt was given t/w card and resources if questions or concerns arise. Pt has appt at the [facility] on 03/06 at 2:15PM. CM aware.
[2021-02-27 15:23] VITALS: BP 100/56; PULSE 98; RESP 16; TEMP 36.7; O2SAT 97
[2021-02-27 19:01] VITALS: BP 115/64; PULSE 85; RESP 16; TEMP 36.9; O2SAT 97
[2021-02-27 23:14] VITALS: BP 117/69; PULSE 88; RESP 20; TEMP 36.3; O2SAT 98
[2021-02-28 04:00] VITALS: BP 129/72; PULSE 70; RESP 20; TEMP 36.3; O2SAT 96
[2021-02-28 07:47] VITALS: BP 130/77; PULSE 81; RESP 18; TEMP 37; O2SAT 98
[2021-02-28] MEDS: Nicotine 21 MG PATCH.TD24 TRANSDERMA (08:06)
[2021-02-28] MEDS: Folic Acid 1 MG TABLET PO (08:06)
[2021-02-28] MEDS: Thiamine HCL 100 MG TABLET PO (08:06)
[2021-02-28] MEDS: levETIRAcetam 500 MG TABLET PO (08:06)
[2021-02-28] MEDS: 0.9 % Sodium Chloride Flush 3 ML SYRINGE IVFLUSH (08:08)
[2021-02-28 09:02] VITALS: BP 130/77; PULSE 81; O2SAT 98
--- NOTE | 2021-02-28 09:29 | MHC.CM.PN ---
Addendum entered by Kely Mensah 02/28/21 11:50: FOLLOW UP APPOINTMENT WAS SCHEDULED FOR PT AT [facility] FOR Wednesday03/03/21 AT 1415 HOURS. PT IS AWARE. Original Note: CM spoke to pts sister/HCP Zarina ([phone]) to discuss pts DC plan. She is aware the pt was not eligible for acute rehab. She was also informed the pt was seen by PT this morning and was improving. YAMILET explained the pt would need to follow up with outpatient PT as he is not homebound so ineligible for VNA services. CM will schedule a follow up appointment with [facility] per pts request. Pt will DC home today with follow up at [facility]. Sister to transport.
[2021-03-03 14:07] LABS: Levetiracetam Keppra 8.4 mcg/mL (12.0-46.0)
== END 2021-02-28 11:36 | disposition home or self-care (01) | DRG 53 ==
LOC: HO.ED 17:45 → HO.EDOVER 02-26 → HO.S3 02-26 13:44
PROVIDERS: Admitting Provider Internal Medicine; Emergency Provider Emergency Medicine; PCP Internal Medicine; Visit Provider Family Medicine
DX: G40.509 Epileptic seizures related to external causes, not intractable, without status epilepticus (principal); E87.2 Acidosis; F10.239 Alcohol dependence with withdrawal, unspecified; G40.909 Epilepsy, unspecified, not intractable, without status epilepticus; F17.210 Nicotine dependence, cigarettes, uncomplicated; T42.6X6A Underdosing of other antiepileptic and sedative-hypnotic drugs, initial encounter; Y92.9 Unspecified place or not applicable; Z20.822 Contact with and (suspected) exposure to COVID-19; Z71.6 Tobacco abuse counseling; Z79.899 Other long term (current) drug therapy
CPT/HCPCS: 36415; 70450; 80048; 80076; 80177; 80320; 83605; 83690; 83735; 85025; 85610; 85730; 87635; 93005; 96372; 96374; 96375; 97112; 97116; 97162; 99285; 99291; J1650; J2060; J2405; J2560; J3411

== ENCOUNTER 2021-05-18 10:46 | Emergency (ER) | payer OTHER, SELFPAY ==
[2021-05-18 10:54] VITALS: BP 143/86; PULSE 98; RESP 18; TEMP 36.6; O2SAT 95; BMI 24.3
--- NOTE | 2021-05-18 11:22 | ED_ITS ---
HPI - Alcohol General Chief Complaint: ETOH/Substance Use Stated Complaint: ETOH, SEEKING DETOX Time Seen by Provider: 05/18/21 10:57 Source: patient Limitations: no limitations History of Present Illness HPI narrative: This is a 46-year-old male with history of alcohol abuse who is here because he wants help to stop drinking. He has been to detox before. Patient lives at home alone. He has history of a brain aneurysm about 10 years ago. He last drank yesterday. He drinks over a pt a day. He admits being ?a drunk? and falling frequently. He notes that he fell and bumped his left eyebrow area about a week ago. He denies any headache, neck pain, chest pain, shortness of breath, abdominal pain. He admits marijuana use but denies any other substance abuse. He denies feeling depressed or suicidal. Related Data Previous Rx's Medication Instructions Recorded levetiracetam 500 mg tablet 500 mg PO BID #60 tab 02/27/21 naltrexone 50 mg tablet 50 mg PO DAILY #30 tab 02/28/21 omeprazole 20 mg capsule,delayed 20 mg PO DAILY PRN #30 cap 02/28/21 release naltrexone 50 mg tablet 50 mg PO DAILY #7 tab 05/18/21 Allergies Allergy/AdvReac Type Severity Reaction Status Date / Time No Known Allergies Allergy Verified 02/25/21 17:12 [No Known Allergies*] Review of Systems Review of Systems: Yes all other systems are reviewed and are negative Constitutional: Constitutional: Reports as per HPI and Denies fever(s) Eyes: Eyes: Reports as per HPI and Reports no additional eye complaints ENT: Reports system reviewed and no additional complaints, except as documented, Reports as per HPI, Denies nasal congestion, Denies nasal discharge and Denies sore throat Cardiovascular: Cardiovascular: Reports as per HPI, Denies chest pain and Denies dyspnea Respiratory: Respiratory: Reports as per HPI, Denies cough and Denies dyspnea Gastrointestinal: Gastrointestinal: Reports as per HPI, Denies abdominal pain, Denies diarrhea and Denies vomiting Genitourinary: Genitourinary: Reports as per HPI, Denies hematuria, Denies dysuria and Denies urinary frequency Musculoskeletal: Musculoskeletal: Reports no additional musculoskeletal complaints and Denies numbness Integumentary/Breasts: Skin/Breast: Reports as per HPI and Denies rash Comments: Abrasions to head and extremities Neurologic: Reports as per HPI, Denies focal weakness, Denies numbness and Denies Sensory deficit (Neuro) Psychiatric: Psychiatric: Reports no additional psychiatric complaints and Reports as per HPI Endocrine: Endocrine: Reports no additional endocrine complaints and Reports as per HPI Hematologic/Lymphatic: Hematologic/Lymphatic: Reports no additional hematologic/lymphatic complaints, Reports as per HPI and Reports other (No peripheral edema) [facility] Past Medical History Medical History Seizures Surgical History Aneurysm of anterior communicating artery Family History Family History Father Diabetes Mother No problems noted. Sister No problems noted. Sister No problems noted. Social History Social History Household Members: None Housing: Apartment Do you presently have visiting nurse or other home services: No Alcohol intake: current Alcohol intake frequency: a few times a week Second Hand Smoke Exposure: No Substance Use Type: Marijuana Advance Directives: No Advance Directives Information Provided: Yes service: No Current occupational status: employed Physical Exam Vital Signs: Vital Signs: Last Vital Signs Temp 98 F 05/18/21 10:54 Pulse 101 H 05/18/21 15:11 Resp 18 05/18/21 15:11 BP 128/68 05/18/21 15:11 Pulse Ox 98 05/18/21 15:11 Body Mass Index 24.3 Const: Other: Patient initially sleeping, upon awakening is alert and answers questions appropriately. Possible mild intoxication. Apparent mild speech impediment appears to be baseline General: cooperative, no acute distress and alert Orientation/consciousness: patient oriented x3 HENMT: Head: Yes normal to inspection Eyes: General: appearance normal, both eyes and all related structures Eyelids: Yes eyelids normal Conjunctivae: conjunctivae normal Pupils: Equal, round and reactive pupils present Neck: Neck: Yes normal visual inspection and Yes supple Chest: Chest palpation & inspection: normal inspection of the chest Resp: Effort & Inspection: normal respiratory effort Auscultation: clear to auscultation bilaterally Cardio: Rate: regular rate Rhythm: regular rhythm Heart sounds: S1 normal heart sound present, S2 normal heart sound present, no gallops, no murmurs and no rubs GI: Palpation (GI): Soft to palpation, nontender and Other GI palpation findings present (Non-distended) Auscultation: normal bowel sounds Skin: Other: Scabbed abrasions noted on left eyebrow area, also on lower extremities. More recent appearing contusion right upper lateral arm General skin exam: no rashes or lesions noted Neuro: General: patient oriented x3, no focal motor deficits and CN's II-XI intact bilaterally Cranial nerves: Yes Equal, round and reactive pupils present Cognition (Neuro): normal cognition Motor exam (neuro): 5/5 motor strength present throughout Sensory Exam: No Sensory deficit (Neuro) Extrem: General: Yes normal to inspection and Yes no pedal edema Psych: Appearance: grossly normal Affect: normal affect MDM - Alcohol MDM Narrative Medical decision making narrative: Patient toxicity, no evidence of any concerning injury. Patient was observed until he was clinically sober and ready for discharge Lab Data Result diagrams: 05/18/21 11:24 05/18/21 11:24 Labs: Lab Results 05/18/21 05/18/21 05/18/21 Range/Units 11:24 11:24 11:24 WBC 4.8 (4.8-10.8) X10*3/uL RBC 3.82 L (4.60-5.80) X10*6/uL Hgb 13.4 L (14.0-18.0) g/dl Hct 37.3 L (42-52) % MCV 97.6 (80-98) fL MCH 35.1 H (27.0-33.0) pg MCHC 35.9 (31.0-36.0) g/dl RDW 14.1 (11.0-16.0) % Plt Count 150 L (160-400) X10*3/uL MPV 9.1 L (9.4-12.4) fL Immature Gran % (Auto) 0.2 (0.0-0.4) % Neut % (Auto) 66.4 (45-73) % Lymph % (Auto) 20.2 (20-40) % Taylor % (Auto) 10.9 (2-11) % Eos % (Auto) 1.7 (0-4) % Baso % (Auto) 0.6 (0-2) % Lymph # (Auto) 1.0 L (1.2-4.9) X10*3/uL Taylor # (Auto) 0.5 (0.1-1.2) X10*3/uL Eos # (Auto) 0.1 (0.0-0.4) X10*3/uL Baso # (Auto) 0.0 (0.0-0.2) X10*3/uL Abs Immat Gran (auto) 0.01 (0.00-0.03) X10*3/uL Absolute Neuts (auto) 3.2 (2.0-8.3) X10*3/uL Absolute Nucleated RBC 0.000 (0.0-0.012) X10*3/uL Nucleated RBC % (auto) 0.0 (0.0-0.2) /100WBC Sodium 137 (135-145) mmol/L Potassium 3.3 (3.3-5.1) mmol/L Chloride 99 (96-108) mmol/L Carbon Dioxide 23 (22-29) mmol/L Anion Gap 18 (12-20) BUN 4 L (9-16) mg/dL Creatinine 0.83 (0.5-1.4) mg/dL Estim Creat Clear Calc 132.9 Estimated GFR > 60 Random Glucose 172 H D (60-115) mg/dL Calcium 9.4 D (8.4-10.2) mg/dL Magnesium 1.7 (1.6-2.6) mg/dL Total Bilirubin 0.6 (0.0-1.0) mg/dL AST 120 H (5-37) U/L ALT 51 H (0-40) U/L Alkaline Phosphatase 115 D (39-117) U/L Total Protein 7.8 (6.5-8.0) g/dL Albumin 4.0 (3.5-5.0) g/dL Ethyl Alcohol 440 H* mg/dL Discharge Plan Discharge Clinical Impression: Alcohol use disorder Patient Disposition: Home, Self-Care Instructions: Alcohol Use Disorder (ED) Additional Instructions: Follow-up with a detox facility as an outpatient, and with your primary care physician for further evaluation. Return for any new or worsened symptoms Prescriptions: New naltrexone 50 mg tablet 50 mg PO DAILY Qty: 7 RF: 0 No Action levetiracetam 500 mg Tablet 500 mg PO BID Qty: 60 RF: 0 naltrexone 50 mg tablet 50 mg PO DAILY Qty: 30 RF: 0 omeprazole 20 mg Capsule,Delayed Release(Dr/Ec) 20 mg PO DAILY PRN (Reason: Acid Reflux) Qty: 30 RF: 0 Interventions: ED Discharge Assessment Last Done: 05/18/21 17:29 Discharge Date/Time: 05/18/21 17:29
[2021-05-18 11:29] LABS: MANUAL DIFF FLAG NO
[2021-05-18 11:30] LABS: Basophils Percent Auto 0.6 % (0-2); Eosinophils Absolute Auto 0.1 X10*3/uL (0.0-0.4); Eosinophils Percent Auto 1.7 % (0-4); Hematocrit 37.3 % (42-52); Hemoglobin 13.4 g/dl (14.0-18.0); Imm Gran Abs Auto 0.01 X10*3/uL (0.00-0.03); Imm Gran Pct Auto 0.2 % (0.0-0.4); Lymphocytes Percent Auto 20.2 % (20-40); Mean Corpuscular HGB Conc 35.9 g/dl (31.0-36.0); Mean Corpuscular Hemoglobin 35.1 pg (27.0-33.0); Mean Corpuscular Volume 97.6 fL (80-98); Mean Platelet Volume 9.1 fL (9.4-12.4); Monocytes Absolute Auto 0.5 X10*3/uL (0.1-1.2); Monocytes Percent Auto 10.9 % (2-11); Neutrophils Absolute Auto 3.2 X10*3/uL (2.0-8.3); Neutrophils Percent Auto 66.4 % (45-73); Platelet Count 150 X10*3/uL (160-400); Red Blood Count 3.82 X10*6/uL (4.60-5.80); Red Cell Distribution Width 14.1 % (11.0-16.0); White Blood Count 4.8 X10*3/uL (4.8-10.8)
[2021-05-18 11:57] LABS: Ethanol 440 mg/dL
[2021-05-18 12:02] LABS: Alanine Aminotransferase 51 U/L (0-40); Alkaline Phosphatase 115 U/L (39-117); Anion Gap 18 (12-20); Aspartate Amino Transferase 120 U/L (5-37); Bilirubin Total 0.6 mg/dL (0.0-1.0); Blood Urea Nitrogen 4 mg/dL (9-16); Calcium 9.4 mg/dL (8.4-10.2); Carbon Dioxide 23 mmol/L (22-29); Chloride 99 mmol/L (96-108); Creatinine Clr Calc Pharmacy 132.9; Estimated Glomerular Filt Rate > 60; Glucose Random 172 mg/dL (60-115); Magnesium 1.7 mg/dL (1.6-2.6); Potassium 3.3 mmol/L (3.3-5.1); Sodium 137 mmol/L (135-145); Total Protein 7.8 g/dL (6.5-8.0)
[2021-05-18 15:11] VITALS: BP 128/68; PULSE 101; RESP 18; O2SAT 98
[2021-05-18] MEDS: 0.9 % Sodium Chloride 1,000 ML 999 ML IV (15:42)
[2021-05-18] MEDS: Nicotine 14 MG PATCH.TD24 TRANSDERMA (15:47)
--- NOTE | 2021-05-18 16:19 | MHC.RECOVSUP ---
Recovery Support note: Patient is a 46 year year old Bahraini speaking male who presented to [facility] seeking detox. This account underwriter met with patient to discuss alcohol use and recovery. Patient reports drinking about one pint a day. Patient states he went to detox in [place] for one month and that it was helpful but that it was not long before he relapsed. Patient reports he was prescribed naltrexone the last time he was at [facility] and that this is the only thing that works for him. Patient was agreeable to being referred to detox, however stated I can't be away for a while. I can't lose my job. Patient also stated I'm just here for a work note. Patient was only willing to go to [facility] in [place]. This account underwriter reached out to [facility] and they reported no beds however [place] had a bed, first come first serve. This account underwriter informed patient of this information. Patient reports he is not interested in going to [place] and that he is most interested in getting naltrexone. This account underwriter discussed the dangers of alcohol withdrawal and patient reports he is aware but that he did not experience withdrawal symptoms in the past when he had naltrexone. This account underwriter explained that naltrexone does not treat withdrawal and that he should return to the ED if he experiences withdrawal as it can be dangerous. Patient acknowledged. This account underwriter discussed the [facility] with patient and provided him with information on the clinic and informed him that they will continue to prescribe his naltrexone and that he could get the Vivitrol injection if he was interested. Discussed Vivitrol with patient and patient expressed interest. Discussed case with patient's ED provider who was willing to prescribe patient a couple days worth of naltrexone until he can see his primary care or go to the clinic. Patient reports no other needs and states he feels ready to discharge and is currently arranging a sober ride home. This account underwriter will follow up with patient tomorrow to see if he would like me to schedule an appointment at the [facility].
--- NOTE | 2021-05-18 17:26 | MHC.RECOVSUP ---
? Reason for consult Recovery Support o Current location: ED20 o Identified substance use concern: Alcohol - Withdrawal - Seeking ATS (detox) - Support ? Intervention: <del>o</del> <del>ATS</del> <del>bed</del> <del>search</del> <del>started/completed/in</del> <del>process</del> <del>o</del> <del>MAT</del> <del>started</del> <del>or</del> <del>to</del> <del>be</del> <del>started</del> o Community resources provided o Harm reduction discussion ? Plan: <del>o</del> <del>Referral</del> <del>to</del> <del>[facility]</del> <del>o</del> <del>Bed</del> <del>search</del> <del>in</del> <del>progress</del> <del>to</del> <del>o</del> <del>Follow</del> <del>up</del> <del>tomorrow</del> <del>o</del> <del>Patient</del> <del>awaiting</del> <del>crisis</del> <del>evaluation</del> o Patient to follow up with [facility] after discharge ? Additional information: Met with Patient Talk about His recovery goals... Patient is coming here to start MAT tomorrow.. Patient stsated that if he feels that he still needs a detox he will go to [facility] to get assistances with his further action..
== END 2021-05-18 17:29 | disposition home or self-care (01) ==
PROVIDERS: Emergency Provider Emergency Medicine; PCP Internal Medicine
DX: F10.10 Alcohol abuse, uncomplicated (principal); Y90.8 Blood alcohol level of 240 mg/100 ml or more
CPT/HCPCS: 36415; 80053; 82077; 83735; 85025; 96360; 99284

== ENCOUNTER 2021-10-06 10:22 | Inpatient (IN) | payer OTHER, SELFPAY ==
--- NOTE | ~2021-10-06 | CT_ITS ---
EXAMINATION: CT BRAIN. CHEST X-RAY. CLINICAL INFORMATION: None brain aneurysm. COMPARISON: CT brain 02/25/2021 TECHNIQUE: 5 minutes thin axial and reformatted 2 mm thin sagittal coronal images of brain were obtained. DLP 802. FINDINGS: There is a right frontal craniotomy change with a right frontal lobe encephalomalacia. There is no acute intra-axial, extra-axial bleed, masses or midline shift. There is no edema, acute infarction in evolution. There is extra-axial dilatation of right lateral ventricle from previous surgery. There is aneurysm clip right suprasellar region likely from a common aneurysm clipping. Bone windows reveal no calvarial abnormality. Bilateral paranasal sinuses and mastoid air cells are well-aerated. There is no scalp soft tissue abnormality. CT/CT head/brain wo con IMPRESSION: No acute intracranial process seen. Right frontal craniotomy change with right frontal lobe encephalomalacia and extra-axial dilatation of right frontal horn lateral ventricle is stable compared to 02/25/2021. 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
[2021-10-06 10:34] VITALS: BP 133/84; BP 147/93; PULSE 126; PULSE 97; RESP 16; TEMP 37; O2SAT 100; BMI 23.7
--- NOTE | 2021-10-06 10:42 | ECG_ITS ---
Test Reason : seizure Blood Pressure : / mmHG Vent. Rate : 088 BPM Atrial Rate : 088 BPM P-R Int : 140 ms QRS Dur : 080 ms QT Int : 350 ms P-R-T Axes : 040 052 043 degrees QTc Int : 423 ms Normal sinus rhythm Normal ECG When compared with ECG of 25-FEB-2021 17:20, Heart rate has decreased Referred By: Grace Robles Electronically Signed By:DENISE ANGELA MD
--- NOTE | 2021-10-06 11:20 | ED_ITS ---
HPI - Seizure General Chief Complaint: Seizure Stated Complaint: seizure w/ history, coax2 Time Seen by Provider: 10/06/21 10:28 Source: patient and EMS Mode of arrival: EMS History of Present Illness HPI Narrative: 46-year-old male with a past medical history of ETOH abuse, seizures, alcohol withdrawal seizure, cerebral aneurysm s/p clipping in 2007, noncompliant on medications, BIBA for witnessed seizure at work was lowered to the ground, denies incontinence or tongue biting. No reported head trauma. Drinks daily however will not specify amount, also reports THC use, denies other illicit substances. Reports last drink 72 hours ago, reports medication noncompliance. Denies headache, vision changes, CP/SOB, abdominal pain, naus ea/vomiting MD complaint: seizure Description of Episode: tonic-clonic movement Witnessed: Yes - by Bystander Trauma: No Seizure History: Yes Place: Work Possible Precipitating Event: alcohol withdrawal Treatments prior to arrival: none Related Data Home Medications Medication Instructions Recorded Confirmed ibuprofen 200 mg tablet (Advil) 200 mg PO Q6H PRN 10/06/21 10/06/21 omeprazole 20 mg capsule,delayed 20 mg PO DAILY PRN 10/06/21 10/06/21 release Allergies Allergy/AdvReac Type Severity Reaction Status Date / Time No Known Allergies Allergy Verified 02/25/21 17:12 [No Known Allergies*] Review of Systems Review of Systems: Constitutional: No Fever, No Chills, No Fatigue, No Malaise ENT/Mouth: No Ear Pain, No Nasal Congestion, No sore throat Eyes: No Eye Pain, No Swelling, No Redness, No Vision Changes Cardiovascular: No Chest Pain, No SOB, No Palpitations Respiratory: No Cough, No Dyspnea Gastrointestinal: No Nausea, No Vomiting, No Diarrhea, No Constipation, No Abdominal pain Genitourinary: No Dysuria, No Urinary Incontinence, No Urgency, No Flank Pain Musculoskeletal: No joint pain, No Myalgias, No Joint Swelling Skin: No Skin Lesions, No rash Neuro: No Weakness, No Numbness, No Paresthesias, +seizure, No Dizziness, No Headache Yes all other systems are reviewed and are negative [facility] Past Medical History Attestation statement: The following information was validated with the patient. Medical History Alcohol withdrawal seizure Seizure disorder Seizures Surgical History Aneurysm of anterior communicating artery Family History Family History Father Diabetes Mother No problems noted. Sister No problems noted. Sister No problems noted. Social History Social History Household Members: None Housing: Apartment Do you presently have visiting nurse or other home services: No Alcohol intake: current Alcohol intake frequency: a few times a week Alcohol type: beer Patient Tobacco Use Status: Current everyday Tobacco user Second Hand Smoke Exposure: No Use of substances other than those prescribed or required for medical reasons: Yes Substance Use Type: Marijuana Substance Use Frequency: Monthly Advance Directives: No Advance Directives Information Provided: Yes service: No Current occupational status: employed Physical Exam Vital Signs: Vital Signs: Last Vital Signs Temp 98.3 F 10/06/21 12:00 Pulse 87 10/06/21 12:00 Resp 16 10/06/21 12:00 BP 109/65 10/06/21 12:00 Pulse Ox 100 10/06/21 12:00 Body Mass Index 23.7 Const: Other: ETOH odor on breath General: cooperative and healthy appearing Orientation/consciousness: patient oriented x3 Limitations: no limitations HENMT: Head: Yes normal to inspection and Yes atraumatic Ears: hearing grossly normal bilaterally General nose exam: Normal external nose present Face and sinus: Yes normal facial exam Mouth: Normal oral and palatal mucosa present Eyes: General: appearance normal, both eyes and all related structures Pupils: Equal, round and reactive pupils present EOM: EOMs intact bilaterally Neck: Other: No midline cervical spinous tenderness Neck: Yes normal visual inspection, Yes no lymphadenopathy and Yes no meningeal signs Resp: Effort & Inspection: normal respiratory effort Auscultation: clear to auscultation bilaterally, no rales, no rhonchi and no wheezes Cardio: Rate: regular rate Heart sounds: S1 normal heart sound present and S2 normal heart sound present GI: Inspection: Yes normal to inspection Palpation (GI): Soft to palpation, nontender, no guarding and not rigid : General: Yes no CVA tenderness Back/Spine/Pelvis: Back: no CVA tenderness Skin: Rashes: no rashes Wounds: no wounds Neuro: Other: Mildly tremulous, no tongue fasciculations General: patient oriented x3, tone normal, moves all extremities, no meningeal signs and no focal motor deficits Cranial nerves: Yes Equal, round and reactive pupils present Motor exam (neuro): 5/5 motor strength present throughout and Pronator motor function not present Coordination: [id number] test normal Romberg Test: Negative Extrem: General: Yes normal to inspection and Yes no pedal edema Course Course Course Narrative: CT head/brain wo con IMPRESSION: No acute intracranial process seen. ? Right frontal craniotomy change with right frontal lobe encephalomalacia and extra-axial dilatation of right frontal horn lateral ventricle is stable compared to 02/25/2021. 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 -1227--mild leukocytosis of 11.1. H&H stable. Lactic acid elevated to 3.0 likely from seizure not from severe sepsis or infection -magnesium low at 1.4 >2g IV repletion ordered. THC positive, ethanol negative Plan to admit for further management MDM - Seizure MDM Narrative Medical decision making narrative: 46-year-old male with a past medical history of ETOH abuse, seizures, alcohol withdrawal seizure, cerebral aneurysm s/p clipping in 2007, noncompliant on medications, BIBA for witnessed seizure at work was lowered to the ground, denies incontinence or tongue biting. On exam vital signs stable, NAD/non toxic, ETOH odor on breath, no focal neuro deficits. Concern for EtOH withdrawal seizure vs medication noncompliance causing seizure. R/o aneurysmal bleed/ICH, metabolic and infectious etiologies Plan: EKG, labs, CXR, head CT, IV reload Keppra, phenobarb protocol, admission Differential Diagnosis Differential diagnosis: Likely generalized seizure Medical Records Attestation: I reviewed the patient's medical records. Lab Data Attestation: I reviewed the patient's lab results. Result diagrams: 10/06/21 12:01 10/06/21 12:01 Labs: Lab Results 10/06/21 10/06/21 10/06/21 Range/Units 12:01 12:01 12:01 WBC 11.1 H (4.8-10.8) X10*3/uL RBC 4.02 L (4.60-5.80) X10*6/uL Hgb 14.0 (14.0-18.0) g/dl Hct 40.5 L (42.0-52.0) % MCV 100.7 H (80.0-98.0) fL MCH 34.8 H (27.0-33.0) pg MCHC 34.6 (31.0-36.0) g/dl RDW 14.3 (11.0-16.0) % Plt Count 291 (160-400) X10*3/uL MPV 8.8 L (9.4-12.4) fL Immature Gran % (Auto) 0.3 (0.0-0.4) % Neut % (Auto) 84.0 H (45-73) % Lymph % (Auto) 8.0 L (20-40) % Wake % (Auto) 6.6 (2-11) % Eos % (Auto) 0.4 (0-4) % Baso % (Auto) 0.7 (0-2) % Lymph # (Auto) 0.9 L (1.2-4.9) X10*3/uL Wake # (Auto) 0.7 (0.1-1.2) X10*3/uL Eos # (Auto) 0.0 (0.0-0.4) X10*3/uL Baso # (Auto) 0.1 (0.0-0.2) X10*3/uL Abs Immat Gran (auto) 0.03 (0.00-0.03) X10*3/uL Absolute Neuts (auto) 9.4 H (2.0-8.3) x10*3/uL Absolute Nucleated RBC 0.000 (0.0-0.012) X10*3/uL Nucleated RBC % (auto) 0.0 (0.0-0.2) /100WBC Sodium 140 (135-145) mmol/L Potassium 4.6 D (3.3-5.1) mmol/L Chloride 102 (96-108) mmol/L Carbon Dioxide 27 (22-29) mmol/L Anion Gap 16 (12-20) BUN 8 L D (9-16) mg/dL Creatinine 0.85 (0.5-1.4) mg/dL Estim Creat Clear Calc 129.7 Estimated GFR > 60 Random Glucose 104 D (60-115) mg/dL Lactic Acid (0.5-2.0) mmol/L Calcium 9.6 (8.4-10.2) mg/dL Magnesium 1.4 L* (1.6-2.6) mg/dL Total Bilirubin 0.4 (0.0-1.0) mg/dL Direct Bilirubin 0.2 (0.0-0.5) mg/dL AST 35 D (5-37) U/L ALT 25 (0-40) U/L Alkaline Phosphatase 111 (39-117) U/L Troponin I High Sens (<3.5-35.0) ng/L Total Protein 7.9 (6.5-8.0) g/dL Albumin 4.0 (3.5-5.0) g/dL Lipase 39 (8-78) U/L Urine Opiates Screen (Not Detect) Urine Fentanyl Screen (Not Detect) Ur Barbiturates Screen (Not Detect) Ur Phencyclidine Scrn (Not Detect) Ur Amphetamines Screen (Not Detect) U Benzodiazepines Scrn (Not Detect) Urine Cocaine Screen (Not Detect) U Marijuana (THC) Screen (Not Detect) Ethyl Alcohol < 10 mg/dL 10/06/21 10/06/21 10/06/21 Range/Units 12:01 12:01 12:01 WBC (4.8-10.8) X10*3/uL RBC (4.60-5.80) X10*6/uL Hgb (14.0-18.0) g/dl Hct (42.0-52.0) % MCV (80.0-98.0) fL MCH (27.0-33.0) pg MCHC (31.0-36.0) g/dl RDW (11.0-16.0) % Plt Count (160-400) X10*3/uL MPV (9.4-12.4) fL Immature Gran % (Auto) (0.0-0.4) % Neut % (Auto) (45-73) % Lymph % (Auto) (20-40) % Wake % (Auto) (2-11) % Eos % (Auto) (0-4) % Baso % (Auto) (0-2) % Lymph # (Auto) (1.2-4.9) X10*3/uL Wake # (Auto) (0.1-1.2) X10*3/uL Eos # (Auto) (0.0-0.4) X10*3/uL Baso # (Auto) (0.0-0.2) X10*3/uL Abs Immat Gran (auto) (0.00-0.03) X10*3/uL Absolute Neuts (auto) (2.0-8.3) x10*3/uL Absolute Nucleated RBC (0.0-0.012) X10*3/uL Nucleated RBC % (auto) (0.0-0.2) /100WBC Sodium (135-145) mmol/L Potassium (3.3-5.1) mmol/L Chloride (96-108) mmol/L Carbon Dioxide (22-29) mmol/L Anion Gap (12-20) BUN (9-16) mg/dL Creatinine (0.5-1.4) mg/dL Estim Creat Clear Calc Estimated GFR Random Glucose (60-115) mg/dL Lactic Acid 3.0 H* (0.5-2.0) mmol/L Calcium (8.4-10.2) mg/dL Magnesium (1.6-2.6) mg/dL Total Bilirubin (0.0-1.0) mg/dL Direct Bilirubin (0.0-0.5) mg/dL AST (5-37) U/L ALT (0-40) U/L Alkaline Phosphatase (39-117) U/L Troponin I High Sens < 3.5 (<3.5-35.0) ng/L Total Protein (6.5-8.0) g/dL Albumin (3.5-5.0) g/dL Lipase (8-78) U/L Urine Opiates Screen Not Detected (Not Detect) Urine Fentanyl Screen Not Detected (Not Detect) Ur Barbiturates Screen Not Detected (Not Detect) Ur Phencyclidine Scrn Not Detected (Not Detect) Ur Amphetamines Screen Not Detected (Not Detect) U Benzodiazepines Scrn Not Detected (Not Detect) Urine Cocaine Screen Not Detected (Not Detect) U Marijuana (THC) Screen POSITIVE H (Not Detect) Ethyl Alcohol mg/dL ECG Data Attestation: I personally reviewed and interpreted this ECG as follows: ECG interpretation date: 10/06/21 ECG interpretation time: 11:49 Interpretation: EKG normal sinus rhythm at a rate 88. MN interval 140. QTC 423. No STEMI Discharge Plan Discharge Clinical Impression: Alcohol withdrawal seizure Qualifiers: Complication of substance-induced condition: uncomplicated Qualified Code(s): F10.230 - Alcohol dependence with withdrawal, uncomplicated Patient Disposition: Admitted As Inpatient
--- NOTE | 2021-10-06 11:37 | PHA.MEDREC ---
Pharmacy Consult ? Medication Reconciliation Pharmacy has completed the medication reconciliation. Patient reports he has not taken his Keppra in a couple of months. It was last filled 02/2021. He is requesting another prescription for naltrexone when he leaves. Belinda Crabtree, PharmD
[2021-10-06] MEDS: levETIRAcetam in NaCl (iso-os) 1,000 MG/100 ML PIGGYBACK 400 MG IV (11:57)
[2021-10-06] MEDS: 0.9 % Sodium Chloride 1,000 ML 999 ML IVCONT (11:58)
[2021-10-06 12:00] VITALS: BP 109/65; PULSE 87; RESP 16; TEMP 36.8; O2SAT 100
[2021-10-06 12:08] LABS: Basophils Absolute Auto 0.1 X10*3/uL (0.0-0.2); Basophils Percent Auto 0.7 % (0-2); Eosinophils Percent Auto 0.4 % (0-4); Hematocrit 40.5 % (42.0-52.0); Imm Gran Abs Auto 0.03 X10*3/uL (0.00-0.03); Imm Gran Pct Auto 0.3 % (0.0-0.4); Lymphocytes Absolute Auto 0.9 X10*3/uL (1.2-4.9); MANUAL DIFF FLAG NO; Mean Corpuscular HGB Conc 34.6 g/dl (31.0-36.0); Mean Corpuscular Hemoglobin 34.8 pg (27.0-33.0); Mean Corpuscular Volume 100.7 fL (80.0-98.0); Mean Platelet Volume 8.8 fL (9.4-12.4); Monocytes Absolute Auto 0.7 X10*3/uL (0.1-1.2); Monocytes Percent Auto 6.6 % (2-11); Neutrophils Absolute Auto 9.4 x10*3/uL (2.0-8.3); Platelet Count 291 X10*3/uL (160-400); Red Blood Count 4.02 X10*6/uL (4.60-5.80); Red Cell Distribution Width 14.3 % (11.0-16.0); White Blood Count 11.1 X10*3/uL (4.8-10.8)
[2021-10-06] MEDS: PHENobarbitaL sodium 130 MG/ML VIAL 338 MG IM (12:16)
[2021-10-06 12:21] LABS: Ethanol < 10 mg/dL
[2021-10-06 12:25] LABS: Amphetamine Screen Urine Not Detected (Not Detect); Barbiturates, Urine Not Detected (Not Detect); Benzodiazepines Screen Urine Not Detected (Not Detect); Cannabinoid Screen Urine POSITIVE (Not Detect); Cocaine Screen Urine Not Detected (Not Detect); Fentanyl, urine Not Detected (Not Detect); Opiate Screen Urine Not Detected (Not Detect); Phencyclidine Screen Urine Not Detected (Not Detect)
[2021-10-06 12:27] LABS: Alanine Aminotransferase 25 U/L (0-40); Alkaline Phosphatase 111 U/L (39-117); Anion Gap 16 (12-20); Aspartate Amino Transferase 35 U/L (5-37); Bilirubin Direct 0.2 mg/dL (0.0-0.5); Bilirubin Total 0.4 mg/dL (0.0-1.0); Blood Urea Nitrogen 8 mg/dL (9-16); Calcium 9.6 mg/dL (8.4-10.2); Carbon Dioxide 27 mmol/L (22-29); Chloride 102 mmol/L (96-108); Creatinine Clr Calc Pharmacy 129.7; Estimated Glomerular Filt Rate > 60; Glucose Random 104 mg/dL (60-115); Lipase 39 U/L (8-78); Magnesium 1.4 mg/dL (1.6-2.6); Potassium 4.6 mmol/L (3.3-5.1); Sodium 140 mmol/L (135-145); Total Protein 7.9 g/dL (6.5-8.0)
[2021-10-06 12:28] LABS: Troponin-I High Sensitivity < 3.5 ng/L (<3.5-35.0)
--- NOTE | 2021-10-06 12:29 | PC.NURSE ---
critical lab received. Magnesium 1.4. DUSTY Black and RN caring for pt.
[2021-10-06 12:38] LABS: COVID-19 Test Negative (Negative)
[2021-10-06] MEDS: Magnesium Sulfate/H2O 2 GM/50 ML PIGGYBACK IV (12:41)
[2021-10-06 14:04] LABS: Reflex Lactate? Lactic Acid Added
[2021-10-06] MEDS: Nicotine 14 MG PATCH.TD24 TRANSDERMA (15:02)
[2021-10-06] MEDS: PHENobarbitaL sodium 130 MG/ML VIAL 253.5 MG IM ×2 (15:05→18:41)
[2021-10-06 15:07] VITALS: BP 114/65; PULSE 79; RESP 18; TEMP 37.7; O2SAT 96
[2021-10-06 15:20] LABS: ~Lactic Acid-LAB USE ONLY 2.6 mmol/L (0.5-2.0)
--- NOTE | 2021-10-06 15:46 | P.HPHOSP_ITS ---
History of Present Illness Date of Service: 10/06/21 Chief Complaint: seizure 46-year-old male with a past medical history of ETOH abuse, seizures, alcohol withdrawal seizure, cerebral aneurysm s/p clipping in 2007, noncompliant on medications, was brought to the hospital after from work after a witnessed seizure, had no uriniary incontinence or tongue biting, no injury to head. He drinks unspecified amount, and reports last drinking day after Thanksgiving, that is 72 hours ago, he has no obvious sings of witdrwal Review of Systems Review of Systems: Gen: no fever Resp: no sob, no cough CV: no chest, no GILBERT, no leg edema GI: No n/v, no abd pain Neuro: No confusion Yes all other systems are reviewed and are negative [facility] Medical History Alcohol withdrawal seizure Seizure disorder Seizures Family History Father Diabetes Mother No problems noted. Sister No problems noted. Sister No problems noted. Surgical History Aneurysm of anterior communicating artery Social History Household Members: None Housing: Apartment Do you presently have visiting nurse or other home services: No Alcohol intake: current Alcohol intake frequency: a few times a week Alcohol type: beer Patient Tobacco Use Status: Current everyday Tobacco user Second Hand Smoke Exposure: No Use of substances other than those prescribed or required for medical reasons: Yes Substance Use Type: Marijuana Substance Use Frequency: Monthly Advance Directives: No Advance Directives Information Provided: Yes service: No Current occupational status: employed Meds Allergies Allergy/AdvReac Type Severity Reaction Status Date / Time No Known Allergies Allergy Verified 02/25/21 17:12 [No Known Allergies*] Active Medications: Current Medications Medication (No Benzodiazepines) 1 each MISCELLANE DAILY MARY JANE Omeprazole (Omeprazole 20 Mg Capsule.) 20 mg PO DAILY PRN PRN Reason: Heartburn Pharmacy Consult (Consult Rx Perform Med Rec) 1 each MISCELLANE ONCE PRN PRN Reason: Consult order Phenobarbital (Phenobarbital 30 Mg Tablet) 60 mg PO BID [facility]; Protocol Stop: 10/08/21 09:01 Phenobarbital (Phenobarbital 30 Mg Tablet) 30 mg PO BID [facility]; Protocol Stop: 10/10/21 09:01 Phenobarbital (Phenobarbital 30 Mg Tablet) 30 mg PO DAILY [facility]; Protocol Stop: 10/12/21 09:01 Phenobarbital Sodium (Phenobarbital Sodium 130 Mg/Ml Vial) 253.5 mg IM Q3H [facility]; Protocol Stop: 10/06/21 18:01 Last Admin: 10/06/21 15:05 Dose: 253.5 mg Documented by: Sodium Chloride (0.9 % Sodium Chloride Flush 3 Ml Syringe) 3 ml IVFLUSH QSHIFT [facility] Home Medications Medication Instructions Recorded Confirmed Last Taken Type ibuprofen 200 mg tablet (Advil) 200 mg PO Q6H PRN 10/06/21 10/06/21 Unknown Hist ory omeprazole 20 mg capsule,delayed 20 mg PO DAILY PRN 10/06/21 10/06/21 Unknown History release Physical Exam Vital Signs and Narrative: Vital Signs: Last Vital Signs Temp 99.8 F 10/06/21 15:07 Pulse 79 10/06/21 15:07 Resp 18 10/06/21 15:07 BP 114/65 10/06/21 15:07 Pulse Ox 96 10/06/21 15:07 Body Mass Index 23.7 Const: Other: Constitutional: Alert, in no distress Mental Status: Oriented to person, place and time. Eyes: Pupils are equal, round and reactive to light. Ear, Nose and Throat: Oropharynx clear, mucous membranes moist. Ears and nose without eformities. Trachea midline. Respiratory: Clear to auscultation. No wheezing, rales or rhonchi. Cardiovascular: S1 S2 regular. No murmurs, rubs or gallops. Gastrointestinal: Abdomen soft, non-tender, non-distended. Normal bowel sounds.? Neurologic: Cranial nerves II-XII grossly intact. No focal neurological defi cits. Moves all extremities spontaneously.? Skin: No rashes or lesions.? Musculoskeletal: No cyanosis or clubbing. Psychiatric: Normal mood and affect? Results Labs CBC and Chem 7: 10/06/21 12:01 10/06/21 12:01 Labs: Laboratory Results - last 24 hr 10/06/21 10/06/21 10/06/21 12:01 12:01 12:01 MCV 100.7 H MCH 34.8 H MCHC 34.6 RDW 14.3 Plt Count 291 MPV 8.8 L Immature Gran % (Auto) 0.3 Neut % (Auto) 84.0 H Lymph % (Auto) 8.0 L Ada % (Auto) 6.6 Eos % (Auto) 0.4 Baso % (Auto) 0.7 Lymph # (Auto) 0.9 L Ada # (Auto) 0.7 Eos # (Auto) 0.0 Baso # (Auto) 0.1 Abs Immat Gran (auto) 0.03 Absolute Neuts (auto) 9.4 H Absolute Nucleated RBC 0.000 Nucleated RBC % (auto) 0.0 Anion Gap 16 Estim Creat Clear Calc 129.7 Estimated GFR > 60 Random Glucose 104 D Lactic Acid Lactic Acid Fup @ 2Hr Calcium 9.6 Magnesium 1.4 L* Total Bilirubin 0.4 Direct Bilirubin 0.2 AST 35 D ALT 25 Alkaline Phosphatase 111 Troponin I High Sens Total Protein 7.9 Albumin 4.0 Lipase 39 Urine Opiates Screen Urine Fentanyl Screen Ur Barbiturates Screen Ur Phencyclidine Scrn Ur Amphetamines Screen U Benzodiazepines Scrn Urine Cocaine Screen U Marijuana (THC) Screen Ethyl Alcohol < 10 COVID-19 (MARY) [email or web address] Com 10/06/21 10/06/21 10/06/21 12:01 12:01 12:01 MCV MCH MCHC RDW Plt Count MPV Immature Gran % (Auto) Neut % (Auto) Lymph % (Auto) Ada % (Auto) Eos % (Auto) Baso % (Auto) Lymph # (Auto) Ada # (Auto) Eos # (Auto) Baso # (Auto) Abs Immat Gran (auto) Absolute Neuts (auto) Absolute Nucleated RBC Nucleated RBC % (auto) Anion Gap Estim Creat Clear Calc Estimated GFR Random Glucose Lactic Acid 3.0 H* Lactic Acid Fup @ 2Hr Calcium Magnesium Total Bilirubin Direct Bilirubin AST ALT Alkaline Phosphatase Troponin I High Sens < 3.5 Total Protein Albumin Lipase Urine Opiates Screen Urine Fentanyl Screen Ur Barbiturates Screen Ur Phencyclidine Scrn Ur Amphetamines Screen U Benzodiazepines Scrn Urine Cocaine Screen U Marijuana (THC) Screen Ethyl Alcohol COVID-19 (MARY) Negative COVID-19 [employer] Com See Note 10/06/21 10/06/21 12:01 15:01 MCV MCH MCHC RDW Plt Count MPV Immature Gran % (Auto) Neut % (Auto) Lymph % (Auto) Ada % (Auto) Eos % (Auto) Baso % (Auto) Lymph # (Auto) Ada # (Auto) Eos # (Auto) Baso # (Auto) Abs Immat Gran (auto) Absolute Neuts (auto) Absolute Nucleated RBC Nucleated RBC % (auto) Anion Gap Estim Creat Clear Calc Estimated GFR Random Glucose Lactic Acid Lactic Acid Fup @ 2Hr 2.6 H* Calcium Magnesium Total Bilirubin Direct Bilirubin AST ALT Alkaline Phosphatase Troponin I High Sens Total Protein Albumin Lipase Urine Opiates Screen Not Detected Urine Fentanyl Screen Not Detected Ur Barbiturates Screen Not Detected Ur Phencyclidine Scrn Not Detected Ur Amphetamines Screen Not Detected U Benzodiazepines Scrn Not Detected Urine Cocaine Screen Not Detected U Marijuana (THC) Screen POSITIVE H Ethyl Alcohol COVID-19 (MARY) COVID-19 Clin Com Imaging Radiologist's Impressions: Impressions Head CT 10/06/21 10:41 IMPRESSION: No acute intracranial process seen. Right frontal craniotomy change with right frontal lobe encephalomalacia and extra-axial dilatation of right frontal horn lateral ventricle is stable compared to 02/25/2021. 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 Chest X-Ray 10/06/21 10:42 IMPRESSION: No acute intracranial process seen. Right frontal craniotomy change with right frontal lobe encephalomalacia and extra-axial dilatation of right frontal horn lateral ventricle is stable compared to 02/25/2021. 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 Assessment and Plan (1) Alcohol withdrawal seizure: Qualifiers: Complication of substance-induced condition: uncomplicated Qualified Code(s): F10.230 - Alcohol dependence with withdrawal, uncomplicated; R56.9 - Unspecified convulsions Status: Acute (2) Alcohol use: Status: Acute 46/male with alcohol dependence here with alcohol withdrwal seizure. Plan: Phebobarbital to prevent withdrawal, will ask Neuro if needs to be on sieuzre meds, my guess is not at this time. Quality Stroke Does the patient have a stroke diagnosis?: No VTE Prior VTE?: No VTE Risk Level:: Medical - low VTE Device Contraindication: Treatment Not Tolerated VTE Drug Contraindication: Treatment Not Indicated
[2021-10-06] MEDS: 0.9 % Sodium Chloride Flush 3 ML SYRINGE IVFLUSH ×2 (16:24→22:25)
[2021-10-06 16:25] VITALS: BP 108/62; PULSE 80; RESP 18
[2021-10-06 17:03] LABS: Reflex Lactate? 2 Y
[2021-10-06 18:29] LABS: ~Lactic Acid-LAB USE ONLY 1.8 mmol/L (0.5-2.0)
[2021-10-06 18:42] VITALS: BP 135/81; PULSE 75; RESP 18; O2SAT 98
[2021-10-06 21:11] VITALS: BP 106/65; PULSE 67; RESP 16; TEMP 37.5; O2SAT 99
[2021-10-06 21:22] LABS: Appearance Urine CLEAR; Color Urine YELLOW; Glucose Urine UA NEG (NEG); Leukocyte Esterase Urine NEG (NEG); Nitrite Urine NEG (NEG); PH 6.5 (5.0-8.0); Specific Gravity - Urine 1.025 (1.005-1.025); UACC Culture Trigger NO; Urine Blood NEG (NEG); Urine Ketones NEG (NEG); Urine Protein 2+ MG/DL (NEG-TRACE)
[2021-10-06 21:30] LABS: Mucus Urine TRACE /LPF; RBC Urine 0-2 /HPF (0); WBC Urine 0-2 /HPF (0-4)
[2021-10-06 21:31] LABS: Sperm Urine NOTED
--- NOTE | 2021-10-06 22:05 | MHC.CM.PN ---
CM met with admitted patient with bed assignment pending. No IMM necessary. PCP Dr. Kenneth Hurt. HCP on file. Pt requests to change his HCP. New HCP reviewed, completed and signed per protocol. HCP/cousin Rafiq Madera ([phone]). Copies given and HCP uploaded into [facility] and [facility]. Fully vaccinated with Moderna. Pt aware that CARE/recovery team will meet with him during his hospital stay. Pt does not believe he has any concerns/ issues with alcohol in his life. Pt is not sure that seizures are from alcohol withdrawal. CM to follow for d/c needs.
[2021-10-06] MEDS: PHENobarbitaL 30 MG TABLET 60 MG PO (22:23)
[2021-10-06 23:47] VITALS: BMI 21.9
[2021-10-07] VITALS: BP 109/69; PULSE 60; RESP 18; TEMP 37.2; O2SAT 97
[2021-10-07 04:00] VITALS: BP 101/61; PULSE 61; RESP 16; TEMP 36.7; O2SAT 98
[2021-10-07 06:56] VITALS: BP 102/64; PULSE 64; RESP 18; TEMP 36.6; O2SAT 98
[2021-10-07] MEDS: PHENobarbitaL 30 MG TABLET 60 MG PO (08:30)
[2021-10-07] MEDS: 0.9 % Sodium Chloride Flush 3 ML SYRINGE IVFLUSH ×2 (08:31→15:22)
[2021-10-07 10:03] LABS: Anion Gap 13 (12-20); Blood Urea Nitrogen 8 mg/dL (9-16); Carbon Dioxide 23 mmol/L (22-29); Chloride 102 mmol/L (96-108); Creatinine Clr Calc Pharmacy 134.6; Estimated Glomerular Filt Rate > 60; Glucose Random 89 mg/dL (60-115); Magnesium 1.9 mg/dL (1.6-2.6); Potassium 4.4 mmol/L (3.3-5.1); Sodium 134 mmol/L (135-145)
[2021-10-07 11:09] VITALS: BP 98/60; PULSE 92; RESP 18; TEMP 36.6; O2SAT 98
--- NOTE | 2021-10-07 12:47 | MHC.CDI.CONC ---
CDI Concurrent Query Documentation Clarification: PHYSICIAN'S DOCUMENTATION REQUEST Date of Query: 10/07/21 1245 Patient Name: Valentino Madera Admit Date: 10/06/21 Dear Doctor, A review of the medical record indicates additional documentation may be needed. Please review below and update the documentation accordingly. Clinical Indicators: Risk Factors/Clinical Indicators/Treatments LAB FINDINGS: magnesium 1.4 IV repletion ordered. Based on the above, could you clarify in the Progress Notes the appropriate diagnosis, if significant, that supports the above abnormalities and additional evaluation, monitoring, and/or treatment rendered: Hypomagnesemia or other diagnosis Labs indicate a diagnosis of (please specify) Other (please specify) Unable to determine Use of terms such as suspected, likely, concern for, or probable (associated with a specific diagnosis that is being evaluated, monitored, or treated as if it exists) are acceptable and can be coded in the inpatient setting, when documented at the time of discharge. Thank you, Cindy Arora [facility], CDIS Extension: [phone] Please use your independent medical judgment in providing your response. THIS QUERY IS PART OF THE PERMANENT MEDICAL RECORD Provider Response: Other Other Diagnosis: Hypomagnesemia.
[2021-10-07 15:07] VITALS: BP 112/68; PULSE 68; RESP 18; TEMP 36.7; O2SAT 95
--- NOTE | 2021-10-07 17:17 | PM.DS ---
DS: Providers Provider Date of Service: 10/07/21 Date of admission: 10/06/21 15:39 Primary care physician: Unknown Physician Consults: 10/06/21 15:57 Consult to Neurology Routine Consulting Provider: [facility] Reason for consultation: seizure Has provider been notified: No DS: Diagnosis Discharge Diagnosis (1) Alcohol withdrawal seizure: Status: Acute (2) Alcohol use: Status: Acute DS: Summary Hospital Course Hospital Course: 46-year-old male with past medical history of seizures who presents to the hospital with complaints of breakthrough seizure.? Patient also uses alcohol.? He is postictal and therefore history is mostly obtained from ED physician and EMR.? It appears that patient stop drinking about a day ago, was in the car with his friend and that is when he started seizing.? Patient himself is arousable but goes right back to sleep.? He does not have any acute complaints.? Unable to review all of his systems as patient to lethargic. On arrival to the ED hemodynamically stable with no significant abnormal vitals heart rate of 120 that now normalized. Labs on arrival significant for WBC count of 9.7, hemoglobin of 17.6, sodium of 142, potassium 3.9, BUN of 7, creatinine of 1.18 lactic acid of 3.8 AST of 58, ALT of 41, alk-phos of 186, COVID-19 negative. Hospital course: Patient with remote history of probably A-comm aneurysm clipping, associated large right frontal encephalomalacia, and secondarily generalized seizure disorder.? He was not taking any antiepileptic and it was strongly recommended that he should take it and continue taking at rest of his life.? At this time I recommend levetiracetam 500 mg twice a day.? He should not drive and avoid activities that could put his life in danger such as swimming alone or sitting in a soaking tub alone.? He should also avoid alcohol and all drug abuse.? His follow-up should be with Dr. Dykes. hypomagnesemia: Repleted and resolved. Alcohol withdrawal :patient improving but still has tremors, advised him to stay and get phenobarb but he refused and signed against medical advice. Risk of leaving against medical advise discussed with him in detail including seizure and - he is alert oriented x3 and understands, still wants to leave. Above management discussed with the patient in detail length she understand and in agreement with the above plan, time spent 50 minutes and 50% time spent on counseling. Significant findings: As above. Procedures performed: None. Treatment and response: As above. Complications: None. Time Spent with Patient Time attestation: Total time spent providing and/or coordinating discharge services: Discharge coordination time: Greater than 30 minutes Quality: Stroke Does the patient have a stroke diagnosis?: No Physical Exam Vital Signs: Vital Signs: Last Vital Signs Temp 98.0 F 10/07/21 15:07 Pulse 68 10/07/21 15:07 Resp 18 10/07/21 15:07 BP 112/68 10/07/21 15:07 Pulse Ox 95 10/07/21 15:07 Body Mass Index 21.9 Physical exam: Appearance: Alert.? Oriented X3.? not in distress.? Eyes: Pupils equal, round and reactive to light.? Sclera nonicteric.? ENT: Pharynx normal.? Moist mucous membranes. cvs: rrr, [id number] , no murmur res: clear to auscultation ,no rhonchii or wheezing abd: no rebound or guarding ,nt, bs present. ext pulses present , no cyanosis has tremers hands , walking fine otherwise. neuro: axo3 , nonfocal. DS: Data Data Completed and Pending Completed studies during hospitalization [Text1]: Procedures Detoxification Services for Substance Abuse Treatment (02/25/21) Labs on day of discharge: Laboratory Results - last 24 hr 10/06/21 10/06/21 10/07/21 18:12 21:14 09:21 Sodium 134 L Potassium 4.4 Chloride 102 Carbon Dioxide 23 Anion Gap 13 BUN 8 L Creatinine 0.77 Estim Creat Clear Calc 134.6 Estimated GFR > 60 Random Glucose 89 Lactic Acid Fup @ 4Hr 1.8 Calcium 9.0 D Magnesium 1.9 Urine Color YELLOW Urine Appearance CLEAR Urine pH 6.5 Ur Specific [place] 1.025 Urine Protein 2+ H Urine Glucose (UA) NEG Urine Ketones NEG Urine Blood NEG Urine Nitrite NEG Ur Leukocyte Esterase NEG Urine RBC 0-2 Urine WBC 0-2 Ur Squamous Epith Cells NONE Urine Bacteria NONE Urine Mucus TRACE Urine Sperm NOTED Additional Comments Additional comments: ct head: IMPRESSION: No acute intracranial process seen. ? Right frontal craniotomy change with right frontal lobe encephalomalacia and extra-axial dilatation of right frontal horn lateral ventricle is stable compared to 02/25/2021. 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 cxr:IMPRESSION: No acute cardiopulmonary process seen in chest. Discharge Plan Discharge Patient Disposition: Left Against Medical Advice Discharge Diagnosis: seizure . Referrals: Physician,Unknown J [Primary Care Provider] - 1 Week Discharge Medications: New levetiracetam 500 mg Tablet 500 mg PO BID Qty: 60 RF: 0 thiamine HCl (vitamin B1) 100 mg tablet 50 mg PO DAILY Qty: 30 RF: 0 folic acid 1 mg tablet 1 mg PO DAILY Qty: 30 RF: 0 Continued ibuprofen [Advil] 200 mg Tablet 200 mg PO Q6H PRN (Reason: Pain) RF: 0 omeprazole 20 mg capsule,delayed release(DR/EC) 20 mg PO DAILY PRN (Reason: Heartburn) RF: 0 Discharge Orders: Discharge Order (Routine); Ordered 10/07/21 Ordered By: Amy Powell Diet: advance to usual diet Stand Alone Forms: Work/School Release Care Plan Goals: ?Patient with remote history of probably A-comm aneurysm clipping, associated large right frontal encephalomalacia, and secondarily generalized seizure disorder.? He was not taking any antiepileptic and it was strongly recommended that he should take it and continue taking at rest of his life.? At this time I recommend levetiracetam 500 mg twice a day.? He should not drive and avoid activities that could put his life in danger such as swimming alone or sitting in a soaking tub alone.? He should also avoid alcohol and all drug abuse.? His follow-up should be with Dr. Dykes. Alcohol withdrawal :patient improving but still has tremors, advised him to stay and get phenobarb but he refused and signed against medical advice. Risk of leaving against medical advise discussed with him in detail including seizure and - he is alert oriented x3 and understands, still wants to leave. Health Concerns: as above. Plan of Treatment: As above. Assessment: As above. Discharge Date/Time: 10/07/21 18:13
--- NOTE | 2021-10-07 17:40 | P.CNNE_ITS ---
History of Present Illness Data of Consult Service Date: 10/07/21 Primary Care Provider: Unknown Physician HPI Reason for consult: Seizure This is a 46-year-old man with a history of chronic alcohol abuse and seizures. He was brought in after a generalized seizure. He has been prescribed Keppra 500 mg twice a day by Dr. Paul dillard but ran out of it about 10 days ago. His last seizure before this was about a year ago according to him.He says the Keppra works well for him. He has been worked up for his seizures in the past and the question is whether this is epilepsy, or alcohol withdrawal seizure. He continues to drink and his last drink was on Thanksgiving. He came in to 3 days later still within the window for alcohol withdrawal seizure. He does not show any signs of alcohol withdrawal. Review of Systems Review of Systems: Yes all other systems are reviewed and are negative [facility] Past Medical History Medical History Alcohol withdrawal seizure Seizure disorder Seizures Family History Family History Father Diabetes Mother No problems noted. Sister No problems noted. Sister No problems noted. Surgical History Surgical History Aneurysm of anterior communicating artery Social History Social History Household Members: None Housing: Apartment Do you presently have visiting nurse or other home services: No Alcohol intake: current Alcohol intake frequency: a few times a week Alcohol type: beer Patient Tobacco Use Status: Current everyday Tobacco user Tobacco use type: Cigarette Cigarette Packs Per Day: 1 Cigarettes Per Day: 20.0 Second Hand Smoke Exposure: No Substance Use Type: Marijuana service: No Current occupational status: employed Meds Allergies Allergy/AdvReac Type Severity Reaction Status Date / Time No Known Allergies Allergy Verified 02/25/21 17:12 [No Known Allergies*] Active Medications: Current Medications Levetiracetam (Levetiracetam 500 Mg Tablet) 500 mg PO BID MARY JANE Medication (No Benzodiazepines) 1 each MISCELLANE DAILY MARY JANE Omeprazole (Omeprazole 20 Mg Capsule.) 20 mg PO DAILY PRN PRN Reason: Heartburn Pharmacy Consult (Consult Rx Perform Med Rec) 1 each MISCELLANE ONCE PRN PRN Reason: Consult order Phenobarbital (Phenobarbital 30 Mg Tablet) 60 mg PO BID [facility]; Protocol Stop: 10/08/21 09:01 Last Admin: 10/07/21 08:30 Dose: 60 mg Documented by: Phenobarbital (Phenobarbital 30 Mg Tablet) 30 mg PO BID [facility]; Protocol Stop: 10/10/21 09:01 Phenobarbital (Phenobarbital 30 Mg Tablet) 30 mg PO DAILY [facility]; Protocol Stop: 10/12/21 09:01 Sodium Chloride (0.9 % Sodium Chloride Flush 3 Ml Syringe) 3 ml IVFLUSH QSHIFT [facility] Last Admin: 10/07/21 15:22 Dose: 3 ml Documented by: Home Medications Medication Instructions Recorded Confirmed Last Taken Type ibuprofen 200 mg tablet (Advil) 200 mg PO Q6H PRN 10/06/21 10/06/21 Unknown History omeprazole 20 mg capsule,delayed 20 mg PO DAILY PRN 10/06/21 10/06/21 Unknown History release Physical Exam Vital Signs: Vital Signs: Last Vital Signs Temp 98.0 F 10/07/21 15:07 Pulse 68 10/07/21 15:07 Resp 18 10/07/21 15:07 BP 112/68 10/07/21 15:07 Pulse Ox 95 10/07/21 15:07 Body Mass Index 21.9 Const: General: cooperative and healthy appearing Orientation/consciousness: patient oriented x3 Limitations: no limitations HENMT: Head: Yes normal to inspection and Yes atraumatic Ears: hearing grossly normal bilaterally General nose exam: Normal external nose present Face and sinus: Yes normal facial exam Mouth: Normal oral and palatal mucosa present Eyes: General: appearance normal, both eyes and all related structures Pupils: Equal, round and reactive pupils present EOM: EOMs intact bilaterally Neck: Neck: Yes normal visual inspection, Yes no lymphadenopathy and Yes no meningeal signs Resp: Effort & Inspection: normal respiratory effort Auscultation: clear to auscultation bilaterally, no rales, no rhonchi and no wheezes Cardio: Rate: regular rate Heart sounds: S1 normal heart sound present and S2 normal heart sound present GI: Inspection: Yes normal to inspection Palpation (GI): Soft to palpation, nontender, no guarding and not rigid : General: Yes no CVA tenderness Back/Spine/Pelvis: Back: no CVA tenderness Skin: Rashes: no rashes Wounds: no wounds Neuro: Other: Normal nonfocal neurological examination General: patient oriented x3, tone normal, moves all extremities, no meningeal signs and no focal motor deficits Cranial nerves: Yes Equal, round and reactive pupils present Motor exam (neuro): 5/5 motor strength present throughout and Pronator motor function not present Coordination: [id number] test normal Romberg Test: Negative Extrem: General: Yes normal to inspection and Yes no pedal edema Results Labs CBC & Chem 7: 10/06/21 12:01 10/07/21 09:21 Labs: BMP 10/07/21 09:21 Sodium 134 L Potassium 4.4 Chloride 102 Carbon Dioxide 23 BUN 8 L Creatinine 0.77 Calcium 9.0 D Urine 10/06/21 Range/Units 21:14 Urine Color YELLOW Urine Appearance CLEAR Urine pH 6.5 (5.0-8.0) Ur Specific [place] 1.025 (1.005-1.025) Urine Protein 2+ H (NEG-TRACE) MG/DL Urine Glucose (UA) NEG (NEG) MG/DL Assessment and Plan (1) Alcohol withdrawal seizure: Qualifiers: Complication of substance-induced condition: uncomplicated Qualified Code(s): F10.230 - Alcohol dependence with withdrawal, uncomplicated; R56.9 - Unspecified convulsions Status: Acute It is unclear if he has purely alcohol withdrawal seizures or also has an underlying epilepsy. He says that she goes a year without any seizures as long as he takes the Keppra. My recommendation would be to discharge him on Keppra 500 mg twice a day and alcoholic counseling (2) Alcohol use: Status: Acute 46/male with alcohol dependence here with alcohol withdrwal seizure. Plan: Phebobarbital to prevent withdrawal, will ask Neuro if needs to be on sieuzre meds, my guess is not at this time. Procedures Date of Service Date of Service: 10/07/21
--- NOTE | 2021-10-07 17:40 | PC.NURSE ---
attempted to convince patient to stay over night to monitor. refuses to stay despite discussing risks associated with leaving. Dr. Powell aware. AMA form signed. IV dc'd. instructed me to give evening dose of Keppra po before he leaves hospital.
[2021-10-07] MEDS: levETIRAcetam 500 MG TABLET PO (18:01)
[2021-10-09 14:06] LABS: Levetiracetam Keppra <1.0 mcg/mL (12.0-46.0)
== END 2021-10-07 18:13 | disposition left against medical advice (07) | DRG 425 ==
LOC: HO.ED 14:11 → HO.EDOVER 15:42 → HO.IMC 21:36
PROVIDERS: Physician Assistant; Admitting Provider Internal Medicine; Emergency Provider Emergency Medicine; Visit Provider Internal Medicine
DX: E83.42 Hypomagnesemia (principal); R56.9 Unspecified convulsions; F10.239 Alcohol dependence with withdrawal, unspecified; F17.210 Nicotine dependence, cigarettes, uncomplicated; Z20.822 Contact with and (suspected) exposure to COVID-19; Z91.14 Patient's other noncompliance with medication regimen; Z23 Encounter for immunization; Z71.6 Tobacco abuse counseling; Z79.1 Long term (current) use of non-steroidal anti-inflammatories (NSAID); Z79.899 Other long term (current) drug therapy
CPT/HCPCS: 36415; 70450; 71045; 80048; 80076; 80177; 80307; 81001; 82077; 83605; 83690; 83735; 84484; 85025; 87635; 90686; 93005; 99284; J1953; J2560; J3475

== ENCOUNTER 2021-11-04 08:00 | Outpatient (REF) | payer OTHER, SELFPAY ==
--- NOTE | 2021-11-04 08:00 | EEG_ITS ---
This is 16-channel EEG with an EKG lead. Patient is reported awake during the tracing. Background EEG rhythm is 16-20 hertz 5-30 microvolt posteriorly, lower amplitude fast anteriorly. Photic stimulation does not produce any significant abnormality. Hyperventilation is not performed. No sharp wave spikes or paroxysmal tendency noted. Cardiac lead does not reveal any significant abnormality. IMPRESSION: No significant abnormality noted on this EEG. MD LEONEL Cha/KRISSY / [id number]
== END 2021-11-04 08:01 | disposition home or self-care (01) ==
LOC: HO.NEURO 08:00
PROVIDERS: Visit Provider Nurse Practitioner Family
DX: G40.909 Epilepsy, unspecified, not intractable, without status epilepticus (principal)
CPT/HCPCS: 95816

== ENCOUNTER 2021-11-24 10:43 | Emergency (ER) | payer OTHER, SELFPAY ==
[2021-11-24 10:56] VITALS: BP 111/88; BP 143/89; PULSE 87; PULSE 97; RESP 20; TEMP 36.8; O2SAT 96; O2SAT 98; BMI 24.3
--- NOTE | 2021-11-24 12:22 | ED.ALCOHOL ---
HPI - Alcohol General Chief Complaint: ETOH/Substance Use Stated Complaint: ETOH USE Time Seen by Provider: 11/24/21 12:09 Source: patient Mode of arrival: ambulatory Limitations: no limitations Related Data Home Medications Medication Instructions Recorded Confirmed ibuprofen 200 mg tablet (Advil) 200 mg PO Q6H PRN 10/06/21 10/10/21 omeprazole 20 mg capsule,delayed 20 mg PO DAILY PRN 10/06/21 10/10/21 release Previous Rx's Medication Instructions Recorded folic acid 1 mg tablet 1 mg PO DAILY #30 tab 10/07/21 levetiracetam 500 mg tablet 500 mg PO BID #60 tab 10/07/21 thiamine HCl (vitamin B1) 100 mg 50 mg PO DAILY #30 tab 10/07/21 tablet Allergies Allergy/AdvReac Type Severity Reaction Status Date / Time No Known Allergies Allergy Verified 10/10/21 14:06 [No Known Allergies*] PMFSH Past Medical History Medical History Alcohol withdrawal seizure Seizure disorder Seizures Surgical History Aneurysm of anterior communicating artery Family History Family History (Updated 10/10/21 @ 13:58 by RIKKI Larsen) Father Diabetes Mother No problems noted. Sister No problems noted. Sister No problems noted. Social History Social History Household Members: None Housing: Apartment Do you presently have visiting nurse or other home services: No Alcohol intake: current Alcohol intake frequency: a few times a week Alcohol type: beer Patient Tobacco Use Status: Current everyday Tobacco user Tobacco use type: Cigarette Cigarette Packs Per Day: 1 Cigarettes Per Day: 20.0 e-Cigarette/Vaping Use: Never Used Second Hand Smoke Exposure: Yes Substance Use Type: Marijuana service: No Current occupational status: employed Cognitive needs: No Hearing needs: No Vision needs: Yes (Reading glasses) Physical Exam Vital Signs: Vital Signs: Last Vital Signs Temp 98.3 F 11/24/21 10:56 Pulse 97 11/24/21 10:56 Resp 20 11/24/21 10:56 BP 111/88 11/24/21 10:56 Pulse Ox 98 11/24/21 10:56 BMI result Body Mass Index 24.3 Discharge Plan Discharge Prescriptions: No Action ibuprofen [Advil] 200 mg Tablet 200 mg PO Q6H PRN (Reason: Pain) RF: 0 omeprazole 20 mg capsule,delayed release(DR/EC) 20 mg PO DAILY PRN (Reason: Heartburn) RF: 0 levetiracetam 500 mg Tablet 500 mg PO BID Qty: 60 RF: 0 thiamine HCl (vitamin B1) 100 mg tablet 50 mg PO DAILY Qty: 30 RF: 0 folic acid 1 mg tablet 1 mg PO DAILY Qty: 30 RF: 0
== END 2021-11-24 16:00 | disposition left against medical advice (07) ==
LOC: HO.ED 12:44
PROVIDERS: Emergency Provider Emergency Medicine
DX: F10.929 Alcohol use, unspecified with intoxication, unspecified (principal)
CPT/HCPCS: 99281; 99282

== ENCOUNTER 2021-12-01 15:17 | Emergency (ER) | payer OTHER, SELFPAY ==
--- NOTE | 2021-12-01 15:36 | ED_ITS ---
HPI - Seizure General Chief Complaint: Seizure Stated Complaint: seizure Time Seen by Provider: 12/01/21 15:33 Source: patient, EMS and old records reviewed Mode of arrival: EMS Limitations: no limitations History of Present Illness HPI Narrative: 46-year-old male with a history of cerebral aneurysm s/p clipping in 2007, alcohol abuse, seizure disorder on Keppra who presents to the ER from work via EMS with report of having a seizure today. 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 He was staring blankly and not answering their questions. He did not fall or hit his head. Unclear how long it lasted for. Patient was confused and very slow to respond when EMS arrived but report significant improvement by the time they got to the ER. Patient has no recollection of the events but remembers being seated. He admits to not taking his keppra today and he has a history of medication noncompliance. MD complaint: seizure Onset (ago): minute(s) Description of Episode: post-event confusion Witnessed: Yes - by Bystander Trauma: No Seizure History: Yes Place: Work Possible Precipitating Event: medication (noncompliance) Associated symptoms: denies other symptoms Treatments prior to arrival: none Related Data Home Medications Medication Instructions Recorded Confirmed ibuprofen 200 mg tablet (Advil) 200 mg PO Q6H PRN 10/06/21 10/10/21 omeprazole 20 mg capsule,delayed 20 mg PO DAILY PRN 10/06/21 10/10/21 release Previous Rx's Medication Instructions Recorded folic acid 1 mg tablet 1 mg PO DAILY #30 tab 10/07/21 levetiracetam 500 mg tablet 500 mg PO BID #60 tab 10/07/21 thiamine HCl (vitamin B1) 100 mg 50 mg PO DAILY #30 tab 10/07/21 tablet Allergies Allergy/AdvReac Type Severity Reaction Status Date / Time No Known Allergies Allergy Verified 10/10/21 14:06 [No Known Allergies*] Review of Systems Review of Systems: Constitutional: No Fever, No Chills ENT/Mouth: No sore throat, No Rhinorrhea, No Swallowing Difficulty Eyes: No Eye Pain, No Swelling, No Redness Cardiovascular: No Chest Pain, No SOB, No Orthopnea, No Edema Respiratory: No Cough, No Sputum, No Wheezing, No dyspnea Gastrointestinal: No Nausea, No Vomiting, No Diarrhea, No abdominal Pain Genitourinary: No Dysuria, No Urinary Frequency, No incontinence Musculoskeletal: No joint pain, No Myalgias Skin: + Skin Lesions, No rash Neuro: No Weakness, No Numbness, No Dizziness, No Headache, +Confusion Psych: No Anxiety/Panic, No Depression Heme/Lymph: No Bruising, No Lymphadenopathy Endocrine: No Polyuria, No Polydipsia PMF Past Medical History Attestation statement: The following information was validated with the patient. Medical History Alcohol withdrawal seizure Seizure disorder Seizures Surgical History Aneurysm of anterior communicating artery Family History Family History (Updated 10/10/21 @ 13:58 by RIKKI Larsen) Father Diabetes Mother No problems noted. Sister No problems noted. Sister No problems noted. Social History Social History Household Members: None Housing: Apartment Do you presently have visiting nurse or other home services: No Alcohol intake: current Alcohol intake frequency: a few times a week Alcohol type: beer Patient Tobacco Use Status: Current everyday Tobacco user Tobacco use type: Cigarette Cigarette Packs Per Day: 1 Cigarettes Per Day: 20.0 e-Cigarette/Vaping Use: Never Used Second Hand Smoke Exposure: Yes Use of substances other than those prescribed or required for medical reasons: Yes Substance Use Type: Marijuana Substance Use Frequency: Occasionally Advance Directives: No Advance Directives Information Provided: Yes service: No Current occupational status: employed Cognitive needs: No Hearing needs: No Vision needs: Yes (Reading glasses) Physical Exam Vital Signs: Vital Signs: Last Vital Signs Temp 97.9 F 12/01/21 16:02 Pulse 104 H 12/01/21 16:02 Resp 20 12/01/21 16:02 BP 111/76 12/01/21 16:02 Pulse Ox 96 12/01/21 16:02 BMI result Body Mass Index 24.3 Appearance: Alert. Oriented X3. No acute distress. Head: 2cm scabbed superficial laceration on the right side of the forehead, no other signs of trauma Eyes: Pupils equal, round and reactive to light. ENT: Pharynx normal. Neck: Normal inspection. Neck supple. CVS: Normal heart rate and rhythm. Pulses normal. Respiratory: No respiratory distress. Breath sounds normal. Abdomen: Soft and nontender. +BS x4 Skin: Skin warm and dry. Normal skin color. Normal skin turgor. No rashes. Extremities: No lower extremity edema. Normal inspection and normal ROM x4. Neuro: Oriented X 3. No motor deficit. No sensory deficit. Course Course Course Narrative: 46 y/o male with history of alcohol abuse and seizures on keppra presents with what sounds like a partial seizure. Upon review of records he has had several similar presentations in the past. Will give dose of Keppra now, check ETOH level. He report his last drink was 4 days ago and he is not an every day drinker. Will check CIWA and monitor for withdrawal and seizures. Reevaluation(s) Reevaluation #1: Mg 1.2, MVC >100, and transaminases mildly elevated all consistent with alcohol abuse. 2gm Mg ordered. CIWA 4. HR 100. Slight tremor noted intermittently but patient denies. He does not feel like he is in withdrawal. He reports drinking 6-8 Awan Lite beers 4 days per week, last drink was Wednesday night. He appears well on exam, not in severe withdrawal. Seizure today most likely due to medication noncompliance. Discussed importance of medication compliance and abstaining from alcohol. He is going to cut back and is declining detox at this time. Stable for discharge home. MDM - Seizure Lab Data Result diagrams: 12/01/21 16:21 12/01/21 16:21 Labs: Lab Results 12/01/21 12/01/21 12/01/21 Range/Units 16:21 16:21 16:21 WBC 5.3 (4.8-10.8) X10*3/uL RBC 3.20 L D (4.60-5.80) X10*6/uL Hgb 11.5 L (14.0-18.0) g/dl Hct 32.5 L (42.0-52.0) % MCV 101.6 H (80.0-98.0) fL MCH 35.9 H (27.0-33.0) pg MCHC 35.4 (31.0-36.0) g/dl RDW 14.6 (11.0-16.0) % Plt Count 193 D (160-400) X10*3/uL MPV 8.9 L (9.4-12.4) fL Immature Gran % (Auto) 0.4 (0.0-0.4) % Neut % (Auto) 74.5 H (45-73) % Lymph % (Auto) 11.8 L (20-40) % Radford % (Auto) 12.5 H (2-11) % Eos % (Auto) 0.2 (0-4) % Baso % (Auto) 0.6 (0-2) % Lymph # (Auto) 0.6 L (1.2-4.9) X10*3/uL [place] # (Auto) 0.7 (0.1-1.2) X10*3/uL Eos # (Auto) 0.0 (0.0-0.4) X10*3/uL Baso # (Auto) 0.0 (0.0-0.2) X10*3/uL Abs Immat Gran (auto) 0.02 (0.00-0.03) X10*3/uL Absolute Neuts (auto) 3.9 (2.0-8.3) x10*3/uL Absolute Nucleated RBC 0.000 (0.0-0.012) X10*3/uL Nucleated RBC % (auto) 0.0 (0.0-0.2) /100WBC Sodium 136 (135-145) mmol/L Potassium 3.8 (3.3-5.1) mmol/L Chloride 94 L (96-108) mmol/L Carbon Dioxide 29 (22-29) mmol/L Anion Gap 17 (12-20) BUN 8 L (9-16) mg/dL Creatinine 1.01 (0.5-1.4) mg/dL Estim Creat Clear Calc 109.2 Estimated GFR > 60 Random Glucose 135 H D (60-115) mg/dL Calcium 9.3 (8.4-10.2) mg/dL Magnesium 1.2 L* (1.6-2.6) mg/dL Total Bilirubin 0.8 (0.0-1.0) mg/dL Direct Bilirubin 0.4 (0.0-0.5) mg/dL AST 162 H (5-37) U/L ALT 119 H (0-40) U/L Alkaline Phosphatase 131 H (39-117) U/L Total Protein 8.0 (6.5-8.0) g/dL Albumin 4.1 (3.5-5.0) g/dL Ethyl Alcohol mg/dL COVID-19 ([facility]) Negative (Negative) COVID-19 Clin Com See Note 12/01/21 Range/Units 16:21 WBC (4.8-10.8) X10*3/uL RBC (4.60-5.80) X10*6/uL Hgb (14.0-18.0) g/dl Hct (42.0-52.0) % MCV (80.0-98.0) fL MCH (27.0-33.0) pg MCHC (31.0-36.0) g/dl RDW (11.0-16.0) % Plt Count (160-400) X10*3/uL MPV (9.4-12.4) fL Immature Gran % (Auto) (0.0-0.4) % Neut % (Auto) (45-73) % Lymph % (Auto) (20-40) % Radford % (Auto) (2-11) % Eos % (Auto) (0-4) % Baso % (Auto) (0-2) % Lymph # (Auto) (1.2-4.9) X10*3/uL [place] # (Auto) (0.1-1.2) X10*3/uL Eos # (Auto) (0.0-0.4) X10*3/uL Baso # (Auto) (0.0-0.2) X10*3/uL Abs Immat Gran (auto) (0.00-0.03) X10*3/uL Absolute Neuts (auto) (2.0-8.3) x10*3/uL Absolute Nucleated RBC (0.0-0.012) X10*3/uL Nucleated RBC % (auto) (0.0-0.2) /100WBC Sodium (135-145) mmol/L Potassium (3.3-5.1) mmol/L Chloride (96-108) mmol/L Carbon Dioxide (22-29) mmol/L Anion Gap (12-20) BUN (9-16) mg/dL Creatinine (0.5-1.4) mg/dL Estim Creat Clear Calc Estimated GFR Random Glucose (60-115) mg/dL Calcium (8.4-10.2) mg/dL Magnesium (1.6-2.6) mg/dL Total Bilirubin (0.0-1.0) mg/dL Direct Bilirubin (0.0-0.5) mg/dL AST (5-37) U/L ALT (0-40) U/L Alkaline Phosphatase (39-117) U/L Total Protein (6.5-8.0) g/dL Albumin (3.5-5.0) g/dL Ethyl Alcohol < 10 mg/dL COVID-19 ([facility]) (Negative) COVID-19 Clin Com Discharge Plan Discharge Clinical Impression: Seizure disorder Patient Disposition: Home, Self-Care Instructions: Recurrent Seizures in Adults (ED) Additional Instructions: It is VERY IMPORTANT that you take your Keppra as directed - DO NOT miss any doses. Recommend STOP drinking alcohol, recommend detox. Follow up with your doctor this week If you develop new or worsening symptoms call 911 or come back to the ER for further evaluation. Prescriptions: No Action ibuprofen [Advil] 200 mg Tablet 200 mg PO Q6H PRN (Reason: Pain) RF: 0 omeprazole 20 mg capsule,delayed release(DR/EC) 20 mg PO DAILY PRN (Reason: Heartburn) RF: 0 levetiracetam 500 mg Tablet 500 mg PO BID Qty: 60 RF: 0 thiamine HCl (vitamin B1) 100 mg tablet 50 mg PO DAILY Qty: 30 RF: 0 folic acid 1 mg tablet 1 mg PO DAILY Qty: 30 RF: 0 Stand Alone Forms: Work/School Release
[2021-12-01 15:47] VITALS: BP 117/74; PULSE 108; O2SAT 99
[2021-12-01 16:02] VITALS: BP 111/76; PULSE 104; RESP 20; TEMP 36.6; O2SAT 96; BMI 24.3
[2021-12-01] MEDS: levETIRAcetam 1,000 MG TABLET 1000 MG PO (16:11)
[2021-12-01 16:28] LABS: MANUAL DIFF FLAG NO
[2021-12-01 16:32] LABS: Basophils Percent Auto 0.6 % (0-2); Eosinophils Percent Auto 0.2 % (0-4); Hematocrit 32.5 % (42.0-52.0); Hemoglobin 11.5 g/dl (14.0-18.0); Imm Gran Abs Auto 0.02 X10*3/uL (0.00-0.03); Imm Gran Pct Auto 0.4 % (0.0-0.4); Lymphocytes Absolute Auto 0.6 X10*3/uL (1.2-4.9); Lymphocytes Percent Auto 11.8 % (20-40); Mean Corpuscular HGB Conc 35.4 g/dl (31.0-36.0); Mean Corpuscular Hemoglobin 35.9 pg (27.0-33.0); Mean Corpuscular Volume 101.6 fL (80.0-98.0); Mean Platelet Volume 8.9 fL (9.4-12.4); Monocytes Absolute Auto 0.7 X10*3/uL (0.1-1.2); Monocytes Percent Auto 12.5 % (2-11); Neutrophils Absolute Auto 3.9 x10*3/uL (2.0-8.3); Neutrophils Percent Auto 74.5 % (45-73); Platelet Count 193 X10*3/uL (160-400); Red Cell Distribution Width 14.6 % (11.0-16.0); White Blood Count 5.3 X10*3/uL (4.8-10.8)
[2021-12-01 16:40] LABS: Ethanol < 10 mg/dL
[2021-12-01 16:44] LABS: COVID-19 Test Negative (Negative); IDNOW Serial# 9DD0AD1C
[2021-12-01 16:49] LABS: Alanine Aminotransferase 119 U/L (0-40); Albumin Level 4.1 g/dL (3.5-5.0); Alkaline Phosphatase 131 U/L (39-117); Anion Gap 17 (12-20); Aspartate Amino Transferase 162 U/L (5-37); Bilirubin Direct 0.4 mg/dL (0.0-0.5); Bilirubin Total 0.8 mg/dL (0.0-1.0); Blood Urea Nitrogen 8 mg/dL (9-16); Calcium 9.3 mg/dL (8.4-10.2); Carbon Dioxide 29 mmol/L (22-29); Chloride 94 mmol/L (96-108); Creatinine Clr Calc Pharmacy 109.2; Estimated Glomerular Filt Rate > 60; Glucose Random 135 mg/dL (60-115); Magnesium 1.2 mg/dL (1.6-2.6); Potassium 3.8 mmol/L (3.3-5.1); Sodium 136 mmol/L (135-145)
[2021-12-01] MEDS: LORazepam 1 MG TABLET PO (16:49)
[2021-12-01] MEDS: Magnesium Sulfate/H2O 2 GM/50 ML PIGGYBACK IV (17:19)
[2021-12-01 19:39] VITALS: BP 102/57; PULSE 98; RESP 19; TEMP 36.9; O2SAT 97
--- NOTE | 2021-12-01 19:40 | PC.NURSE ---
Pt alert and oriented x4, calm and cooperative. Pt denies pain. Pt states he is ready fo discharge. Pt educated on dc teaching. Vitals stable. IV removed.
== END 2021-12-01 20:05 | disposition home or self-care (01) ==
PROVIDERS: Physician Assistant; Emergency Provider Internal Medicine
DX: G40.909 Epilepsy, unspecified, not intractable, without status epilepticus (principal); Z91.14 Patient's other noncompliance with medication regimen; Z20.822 Contact with and (suspected) exposure to COVID-19; F10.99 Alcohol use, unspecified with unspecified alcohol-induced disorder; Y90.0 Blood alcohol level of less than 20 mg/100 ml; F17.200 Nicotine dependence, unspecified, uncomplicated; F12.90 Cannabis use, unspecified, uncomplicated
CPT/HCPCS: 80048; 80076; 82077; 83735; 85025; 87635; 96365; 96366; 99284; J3475

== ENCOUNTER 2021-12-16 14:30 | Emergency (ER) | payer OTHER, SELFPAY ==
--- NOTE | ~2021-12-16 | CT_ITS ---
EXAMINATION: CT LUMBAR SPINE WITHOUT CONTRAST CLINICAL INFORMATION: Status post heavy lifting with lower back pain. COMPARISON: No similar priors. TECHNIQUE: Axial, coronal and sagittal images of the lumbar spine were obtained without intravenous contrast. This CT examination was performed using dose optimization techniques as appropriate, variously including the following: *Automated exposure control *Adjustment of mA and/or kV according to patient size (this includes techniques or standardized protocols for targeted exams where dose is matched to indication/reason for exam; i.e. extremities or head) *Use of iterative reconstruction technique DLP: 330 mGy-cm FINDINGS: No acute compression deformities or malalignment. No significant degenerative changes with overall preserved disc heights. Small disc bulges are identified at L4-L5 and L5-S1 without significant central canal narrowing. Neuroforamina appear patent. No acute abnormalities within the visualized soft tissues. Atherosclerotic disease of the abdominal aorta. CT/CT lumbar spine wo con IMPRESSION: No acute compression deformities or malalignment. Small disc bulges in the lower lumbar spine. Correlation with an MR of the lumbar spine could be obtained if indicated to evaluate for thecal indentation and nerve roots impingement in further detail.
[2021-12-16 14:36] VITALS: BP 148/88; PULSE 85; O2SAT 100
[2021-12-16 15:44] VITALS: BP 106/66; PULSE 90; RESP 18; TEMP 36.7; O2SAT 98
[2021-12-16 15:53] VITALS: BP 106/66; PULSE 90; RESP 18; TEMP 36.7; O2SAT 98; BMI 24.3
[2021-12-16] MEDS: oxyCODONE HCl Immed Release 5 MG TABLET PO (16:36)
[2021-12-16] MEDS: Cyclobenzaprine HCl 10 MG TABLET PO (16:36)
--- NOTE | 2021-12-16 17:57 | ED_ITS ---
HPI - Back Pain/Injury General Chief Complaint: Back Pain/Injury <DUSTY Wolf Last Filed: 12/16/21 18:34> Stated Complaint: BACK SPASMS SINCE TWEAKING IT ON WEDNESDAY <DUSTY Wolf Last Filed: 12/16/21 18:34> Time Seen by Provider: 12/16/21 16:11 <DUSTY Wolf Last Filed: 12/16/21 18:34> Source: patient <DUSTY Wolf Last Filed: 12/16/21 18:34> Mode of arrival: ambulatory <DUSTY Wolf Last Filed: 12/16/21 18:34> Limitations: no limitations <DUSTY Wolf Last Filed: 12/16/21 18:34> History of Present Illness HPI Narrative: 46-year-old male with a past medical history of alcohol use disorder and alcohol withdrawal seizures presenting to the ED with complaints of lower back pain that started 4 days ago on Wednesday when 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 He reports when he was twisting and turning and bending he started having pain to his lower back. Reports since then he has tried [id number] medication no symptomatic relief. He reports that he has had back pain in the past although this is a little bit worse. He denies any dizziness, headaches, neck pain/stiffness or injury, chest pain or shortness of breath, dyspnea on exertion, orthopnea, palpitations, nausea/vomiting/diarrhea constipation, black or bloody stools, urinary or bowel incontinence or retention, paresthesias, history of IV drug use, focal weakness, rashes, actual falls or any additional traumas or injuries or any additional complaints concerns at this time. <DUSTY Wolf Last Filed: 12/16/21 18:34> MD elicited complaint: back pain and back injury <DUSTY Wolf Last Filed: 12/16/21 18:34> Pertinent past history: prior back pain <DUSTY Wolf Last Filed: 12/16/21 18:34> Onset (ago): day(s) (4) <DUSTY Wolf Last Filed: 12/16/21 18:34> Timing: constant and progressively worsening <DUSTY Wolf Last Filed: 12/16/21 18:34> Severity: moderate <DUSTY Wolf - Last Filed: 12/16/21 18:34> Similar Symptoms Previously: Yes <DUSTY Wolf - Last Filed: 12/16/21 18:34> Quality: aching and spasming <DUSTY Wolf - Last Filed: 12/16/21 18:34> Location: lumbar spine <DUSTY Wolf - Last Filed: 12/16/21 18:34> Radiation: none <DUSTY Wolf - Last Filed: 12/16/21 18:34> Exacerbating factors: movement, supine positioning, walking and lifting <DUSTY Wolf - Last Filed: 12/16/21 18:34> Relieving factors: sitting upright <DUSTY Wolf - Last Filed: 12/16/21 18:34> Context: while lifting, turning/twisting and bending <DUSTY Wolf - Last Filed: 12/16/21 18:34> Associated symptoms: denies other symptoms <DUSTY Wolf - Last Filed: 12/16/21 18:34> Treatments prior to arrival: NSAIDS and acetaminophen <DUSTY Wolf - Last Filed: 12/16/21 18:34> Work related injury: Yes <DUSTY Wolf - Last Filed: 12/16/21 18:34> Related Data Home Medications: Home Medications Medication Instructions Recorded Confirmed ibuprofen 200 mg tablet (Advil) 200 mg PO Q6H PRN 10/06/21 10/10/21 omeprazole 20 mg capsule,delayed 20 mg PO DAILY PRN 10/06/21 10/10/21 release Previous Rx's Medication Instructions Recorded folic acid 1 mg tablet 1 mg PO DAILY #30 tab 10/07/21 levetiracetam 500 mg tablet 500 mg PO BID #60 tab 10/07/21 thiamine HCl (vitamin B1) 100 mg 50 mg PO DAILY #30 tab 10/07/21 tablet levetiracetam 500 mg tablet 500 mg PO BID #60 tab 12/01/21 (Keppra) acetaminophen 500 mg tablet 1,000 mg PO QID PRN #14 tab 12/16/21 (Tylenol Extra Strength) cyclobenzaprine 5 mg tablet 5 mg PO TID PRN #10 tab 12/16/21 ibuprofen 800 mg tablet 800 mg PO Q8H PRN #10 tab 12/16/21 <DUSTY Wolf - Last Filed: 12/16/21 18:34> Allergies/Adverse Reactions: Allergies Allergy/AdvReac Type Severity Reaction Status Date / Time No Known Allergies Allergy Verified 10/10/21 14:06 [No Known Allergies*] <DUSTY Wolf - Last Filed: 12/16/21 18:34> Review of Systems Review of Systems: Constitutional : No trauma, No Weight loss, No Fever, No Chills, ENT/Mouth : No Hearing loss, No Ear Pain, No Nasal Congestion, No Sinus Pain, No Hoarseness, No sore throat, No Rhinorrhea, No Swallowing Difficulty Cardiovascular : No Chest Pain, No SOB Respiratory : No Cough, No Dyspnea Gastrointestinal : No Nausea, No Vomiting, No Diarrhea, No abdominal Pain, No Hematochezia, No Melena Genitourinary : No Dysuria, No Urinary Frequency, No Hematuria, No Urinary or Bowel Incontinence/retention Musculoskeletal : + Back pain, No neck pain, No joint stiffness, No joint swelling Skin : No Skin Lesions, No rash or signs of infection Neuro : No Weakness, No radiation, No Numbness, No Paresthesias, No headache, no loss of bowel or bladder incontinence, no saddle anesthesia, Focal weakness, No radiation Denies history of IV drug usage. <DUSTY Wolf - Last Filed: 12/16/21 18:34> Yes all other systems are reviewed and are negative <DUSTY Wolf - Last Filed: 12/16/21 18:34> [facility] Past Medical History Attestation statement: The following information was validated with the patient. <DUSTY Wolf - Last Filed: 12/16/21 18:34> Medical History: Medical History Alcohol withdrawal seizure Seizure disorder Seizures <DUSTY Wolf - Last Filed: 12/16/21 18:34> Surgical History: Surgical History Aneurysm of anterior communicating artery <DUSTY Wolf - Last Filed: 12/16/21 18:34> Family History Family History: Family History Father Diabetes Mother No problems noted. Sister No problems noted. Sister No problems noted. <DUSTY Wolf - Last Filed: 12/16/21 18:34> Social History Social History: Social History Household Members: None Housing: Apartment Do you presently have visiting nurse or other home services: No Alcohol intake: current Alcohol intake frequency: a few times a week Alcohol type: beer Patient Tobacco Use Status: Current everyday Tobacco user Tobacco use type: Cigarette Cigarette Packs Per Day: 1 Cigarettes Per Day: 20.0 e-Cigarette/Vaping Use: Never Used Second Hand Smoke Exposure: Yes Substance Use Type: Marijuana Advance Directives: No Advance Directives Information Provided: Yes service: No Current occupational status: employed Cognitive needs: No Hearing needs: No Vision needs: Yes (Reading glasses) <DUSTY Wolf - Last Filed: 12/16/21 18:34> Physical Exam Vital Signs: Vital Signs: Last Vital Signs Temp 97.8 F 12/16/21 18:48 Pulse 88 12/16/21 18:48 Resp 16 12/16/21 18:48 BP 116/68 12/16/21 18:48 Pulse Ox 99 12/16/21 18:48 BMI result Body Mass Index 24.3 vital signs have been reviewed as normal and appeared to be correct. Blood pressure normal. Heart rate normal. Respiration rate normal. Temperature normal. Oxygen saturation normal. <DUSTY Wolf - Last Filed: 12/16/21 18:34> Vital Signs: Last Vital Signs Temp 97.8 F 12/16/21 18:48 Pulse 88 12/16/21 18:48 Resp 16 12/16/21 18:48 BP 116/68 12/16/21 18:48 Pulse Ox 99 12/16/21 18:48 BMI result Body Mass Index 24.3 <DUSTY Castillo - Last Filed: 12/16/21 23:09> Appearance: Alert. Oriented X3. No acute distress. Head: Normal external exam. Normocephalic. Atraumatic. No Ramos signs noted. No raccoon eyes noted Eyes: PERRLA. EOMI. Conjunctiva and sclera normal. Eyelids normal. ENT: EAC normal. TM's Normal. Pharynx normal. Uvula midline. Moist mucous membranes. No trismus noted. No drooling noted. No muffled voice noted. Neck: Normal inspection. Neck supple. FROM. No adenopathy. Thyroid Normal. No meningeal signs. No neck mass noted. CVS: Normal heart rate and rhythm. Heart sound normal. No murmurs noted. Pulses normal throughout. Respiratory: No respiratory distress. Painless inspiration. Breath sounds normal . No wheezes/rales/rhonchi noted. Chest nontender. No accessory muscle usage noted or decreased air movement noted. Abdomen: Soft and nontender. Bowel sounds normal in all 4 quadrants. No distention noted. No organomegaly noted. No visible injury noted. Back: No CVA tenderness. Full range of motion noted. No obvious deformities, or edema. Mild para-spinal muscular tenderness from lumbar region to coccyx. Full ROM in back and lower extremities. 5/5 strength hip extension/flexion, abduction, adduction. Mild Lumbar pain with hip flexion against resistance. Straight leg raise test negative on right; Straight leg raise test negative on left; Reflexes normal ankle and knee bilaterally; EHL motor strength normal bilaterally. No rashes/lesion/induration/fluctuance or signs infection noted. Skin: Skin warm and dry. Normal skin color. Normal skin turgor. No rashes/lesions/lacerations noted. Extremities: No lower extremity edema. Extremities exhibit normal range of motion. Extremities nontender. Neuro: Oriented X 3. No motor deficit. No sensory deficit. Reflexes normal. Patient has a normal steady gait. <DUSTY Wolf - Last Filed: 12/16/21 18:34> Course Course Course Narrative: 16:20pm - Pt c likely muscular pain, but could be herniated disc. Neuro exam shows no deficits. Not c/w AAA/epidural abscess/dissection.No high risk Hx (Incont, fever, immunosupp, recent surgery/LP, coag, signif trauma, wt loss, puls mass, hx/o Ca, TB, or IVDU) to warrant MR today. Not c/w Pyelo/UTI/kidney stone/spinal fx. Not cauda equina syndrome. Will provide symptomatic treatment with Flexeril and oxycodone while here in the emergency department. Will obtain a CT scan of lumbar spine then re-evaluate. <DUSTY Wolf Last Filed: 12/16/21 18:34> Reevaluation(s) Reevaluation #1: Sign out to ANY Real pending CT scan of lumbar spine without contrast. <DUSTY Wolf Last Filed: 12/16/21 18:34> Time: 18:33 <DUSTY Wolf Last Filed: 12/16/21 18:34> Reevaluation #2: CT scan shows disc bulging. Patient informed to follow-up with primary care provider for further evaluation of disc bulging/herniated disc. Not suspected cauda equina or epidural abscess. Patient is A0x3 with normal gait. <DUSTY Castillo - Last Filed: 12/16/21 23:09> Time: 20:09 <DUSTY Castillo Last Filed: 12/16/21 23:09> MDM - Back Pain/Injury Medical Records Attestation: I reviewed the patient's medical records. <DUSTY Wolf Last Filed: 12/16/21 18:34> Discharge Plan Discharge Clinical Impression: Work related injury, Strain of lumbar region, Bulging lumbar disc <DUSTY Wolf Last Filed: 12/16/21 18:34> Patient Disposition: Home, Self-Care <DUSTY Wolf Last Filed: 12/16/21 18:34> Additional Instructions: CT scan shows lumbar disc bulging you need to follow-up with primary care provider for MRI to evaluate herniated disc. Return to ED for any urinary/bowel incontinence, severe back pain, fever, chills, inability to walk, abdominal pain, or any other concerning symptoms. <DUSTY Wolf Last Filed: 12/16/21 18:34> Prescriptions: New cyclobenzaprine 5 mg tablet 5 mg PO TID PRN (Reason: muscle spasm) Qty: 10 0RF ibuprofen 800 mg tablet 800 mg PO Q8H PRN (Reason: pain) Qty: 10 0RF acetaminophen [Tylenol Extra Strength] 500 mg tablet 1,000 mg PO QID PRN (Reason: fever or pain) Qty: 14 0RF No Action levetiracetam [Keppra] 500 mg tablet 500 mg PO BID Qty: 60 0RF ibuprofen [Advil] 200 mg Tablet 200 mg PO Q6H PRN (Reason: Pain) 0RF omeprazole 20 mg capsule,delayed release(DR/EC) 20 mg PO DAILY PRN (Reason: Heartburn) 0RF levetiracetam 500 mg Tablet 500 mg PO BID Qty: 60 0RF thiamine HCl (vitamin B1) 100 mg tablet 50 mg PO DAILY Qty: 30 0RF folic acid 1 mg tablet 1 mg PO DAILY Qty: 30 0RF <DUSTY Wolf - Last Filed: 12/16/21 18:34> Referrals: [facility] [Provider Group] - 2 days Physician,Unknown J [Primary Care Provider] - 2 days (your pcp) <DUSTY Wolf - Last Filed: 12/16/21 18:34> Stand Alone Forms: Work/School Release <DUSTY Wolf - Last Filed: 12/16/21 18:34> Interventions: ED Discharge Assessment Last Done: 12/16/21 20:25 <DUSTY Wolf - Last Filed: 12/16/21 18:34> Discharge Date/Time: 12/16/21 20:36 <DUSTY Wolf - Last Filed: 12/16/21 18:34> Print Language: Amharic <DUSTY Wolf - Last Filed: 12/16/21 18:34>
[2021-12-16 18:48] VITALS: BP 116/68; PULSE 88; RESP 16; TEMP 36.6; O2SAT 99
== END 2021-12-16 20:36 | disposition home or self-care (01) ==
PROVIDERS: Emergency Provider Emergency Medicine
DX: S39.012A Strain of muscle, fascia and tendon of lower back, initial encounter (principal); M62.838 Other muscle spasm; X50.0XXA Overexertion from strenuous movement or load, initial encounter; Y93.9 Activity, unspecified; Y92.9 Unspecified place or not applicable; Y99.0 Civilian activity done for income or pay; Z79.899 Other long term (current) drug therapy
CPT/HCPCS: 72131; 99284

== ENCOUNTER → 2021-12-22 10:45 | Outpatient (BNVA) | payer OTHER, SELFPAY | PROVIDERS: Visit Provider Internal Medicine | DX: S39.012A Strain of muscle, fascia and tendon of lower back, initial encounter (principal); X50.0XXA Overexertion from strenuous movement or load, initial encounter | CPT/HCPCS: 99202 ==

== ENCOUNTER → 2021-12-31 09:16 | Outpatient (BNVA) | payer OTHER, SELFPAY | PROVIDERS: PCP Internal Medicine; Visit Provider Physician Assistant | DX: S39.012A Strain of muscle, fascia and tendon of lower back, initial encounter (principal); X58.XXXA Exposure to other specified factors, initial encounter | CPT/HCPCS: 99213 ==

== ENCOUNTER → 2022-01-08 09:52 | Outpatient (BNVA) | payer OTHER, SELFPAY | PROVIDERS: PCP Internal Medicine; Visit Provider Internal Medicine | DX: S39.012D Strain of muscle, fascia and tendon of lower back, subsequent encounter (principal); X58.XXXD Exposure to other specified factors, subsequent encounter | CPT/HCPCS: 99213 ==

== ENCOUNTER 2022-01-19 08:38 | Outpatient (RCR) | payer OTHER, SELFPAY ==
--- NOTE | 2022-01-19 10:24 | MHC.PT.EP ---
[facility] [place] Office [place] [facility] [place] Office [address] Yobani Castellanos [address] [phone] F: [phone] F: [phone] F: [phone] F: [phone] Physical Therapy Plan of Care Date of Evaluation: Date of Surgery: NA Diagnosis: Lumbar strain Assessment: Matt is a 46 year old male who is referred to PT for lumbar strain . Pt injured himself at work about 1 month back while was moving 50lbs bags. He had immediate onset of pain. On PT examination he had no TTP, 9/10 pain with sudden movements and forward bending, decreased lumbar ROM, decreased muscle strength, altered posture, balance and gait. He is independent with ADL but does them carefully to avoid any flare ups. He works as a grass farm laborer. Pt presents with very poor awareness and ability to isolate muscles for exercise. He will benefit from skilled PT to address the aforementioned impairments and improve tolerance to functional activities. Frequency and Duration: The patient will be seen 2/week for 4 weeks Short Term Goals: 1. Pt will have 50% decrease in which will enable him to roll in bed without pain in 2 weeks 2. Pt will be able to move his trunk through all planes of motion without pain which will help him dress his lower body in 3 weeks [employer] Goals: 1. Pt will demonstrate an increase in muscle strength by 1 grade which will help him carry grocery without pain in 4 weeks. 2. Pt will be independent with [facility] for symptom management and prevention in 5 weeks. Treatment Plan: Modalities to reduce pain, spasms and effusion. Manual therapy to restore motion and function. Therapeutic exercise to improve strength and flexibility. Neuromuscular re-education for posture and balance. Therapeutic activities to return to functional activities of daily living. Electronically signed by: Mae Ashley PT DPT Please sign and return to therapist. Thank you for your referral.
--- NOTE | 2022-02-05 13:14 | MHC.PT.DC ---
[facility] [place] Office [place] Office [place] Office [address] Yobani Castellanos [address] [phone] F: [phone] F: [phone] F: [phone] F: [phone] Physical Therapy Discharge Report Diagnosis: Lumbar strain Date of Surgery: NA Date of Evaluation: 01/19/22 Date of Discharge: 02/05/22 Treatments to Date: 1 Cancellations to Date: 0 No Shows to Date: Discharge Status: Discharge Summary: Pt a few days after his evaluation. Electronically signed by: Mae Ashley PT DPT Please sign and return to therapist. Thank you for your referral.
== END 2022-02-05 13:14 | disposition home or self-care (01) ==
LOC: HO.PT 08:38
PROVIDERS: PCP Internal Medicine; Visit Provider Internal Medicine
DX: S39.012D Strain of muscle, fascia and tendon of lower back, subsequent encounter (principal)
CPT/HCPCS: 97112; 97140; 97161